=== PATIENT | male | born 1965 | race African-American/Black ===

== ENCOUNTER 2017-06-02 08:40 | Day surgery (SDC) | payer MEDICARE, SELFPAY ==
--- NOTE | 2017-06-02 | COLBX_PTH ---
PATIENT: KJ BEARD LOC: EN U#:[id number] AGE/SX: 51/M ROOM: RE06/02/[address]: Dr. Lee Tirado MD : [id number] BED: DIS: 06/02/2017 SPEC #: [id number] RECD: 06/02/17 10:43 STATUS: DENISE ARSLAN #: [id number] CASH: 06/02/17 00:[address]: Lee Tirado DEPT: SURGICAL PATHOLOGY RECD BY: Frederic Villatoro ENTERED: 06/02/17 12:53 SP TYPE: COLON BX OTHR DR: Dr. Jayant Echeverria MD Tissues: Descending colon Procedures: Surgery Specimen Level IV HEADER OPERATION: Colonoscopy PRE-OP DIAGNOSIS: Screening TISSUE SUBMITTED: Descending polyp MICROSCOPIC DIAGNOSIS Descending colon polyp, biopsy: Fragments of tubulovillous adenoma. SJ:gilda 06/05/17 MICROSCOPIC DESCRIPTION Slides are reviewed. GROSS DESCRIPTION Received in fixative is one container labeled with the patient's name and designated descending colon polyp. The specimen consists of multiple irregular fragments of light fajardo soft tissue that in aggregate measure 1.8 x 0.6 x 01 cm. The specimen is totally submitted in one cassette. / AM:gilda 06/02/17 TC:1 CPT: 44260
[2017-06-02 09:06] VITALS: BP 150/91; PULSE 77; RESP 16; TEMP 36.3; O2SAT 97; BMI 33.0
--- NOTE | 2017-06-02 10:19 | PCM.OPRPT ---
Problem List (1) Screening for intestinal cancer Status: Acute Report of Operation Date of Procedure: 06/02/17 Pre-Operative Diagnosis: Screening for intestinal malignancy Post-Operative Diagnosis: Pedunculated polyp of the descending colon. Sigmoid diverticulosis Surgery/Procedure Performed:: Colonoscopy with hot snare polypectomy Description of Surgical Findings:: Timeout and informed consent was obtained. 51-year-old gentleman was taken to the endoscopy suite. He was placed in a left lateral decubitus position. He has mental disabilities. He underwent monitored anesthesia care. Digital rectal exam performed. Normal anal tone. 2+ smooth prostate. Moderate hemorrhoidal changes. No mass lesions. Flexible colonoscope inserted the rectum advanced with tortuous sigmoid colon. This was actually very challenging due to the excessive tortuosity and colonic spasm. The patient received a milligram of glucagon scope was slowly and progressively advanced through the descending colon transverse colon and with transabdominal pressure was advanced to the ascending colon. The cecum ileocecal valve area was nicely achieved. Bowel prep was adequate. There was liquid stool located throughout the colon majority this could be aspirated free. The scope was withdrawn from the cecum ascending colon transverse colon descending colon. And what was felt to be the mid the proximal descending colon a pedunculated polyp was identified. Photographs were obtained. Hot snare was used to transect the stalk at its base. The polyp was retrieved through the suction. Polyp measured approximately a centimeter in diameter. Hemostasis was intact. The scope was further withdrawn extensive diverticulosis and spasm was noted in the sigmoid colon. I felt that I had adequate visualization. The scope was withdrawn to the rectum retroflex the anorectal verge inspected hemorrhoidal changes noted. Excess fluid and air was aspirated free the procedure was completed with the patient tolerating it well. Impression But unrelated polyp of the proximal descending colon. Extensive sigmoid and descending diverticulosis with colonic spasm. The patient has never had a previous screening colonoscopy in the next one is recommended in 5 years pending pathology results. The scope was inserted at 0957. The cecum was reached at 1005.56. The procedure was completed at 1015 Cc: Dr. Juwan Tirado M.D., F.A.C.S. Type of Anesthesia:: MAC
[2017-06-02 10:20] VITALS: BP 125/79; BP 150/91; PULSE 78; RESP 16; TEMP 36.7; O2SAT 100
[2017-06-02 10:25] VITALS: BP 119/76; BP 150/91; PULSE 78; RESP 16; O2SAT 100
[2017-06-02 10:30] VITALS: BP 127/76; BP 150/91; PULSE 75; RESP 16; O2SAT 100
[2017-06-02 10:35] VITALS: BP 140/82; BP 150/91; PULSE 82; RESP 16; TEMP 36.6; O2SAT 100
[2017-06-02 11:15] VITALS: BP 150/91
== END 2017-06-02 11:15 | disposition home or self-care (01) ==
LOC: EN 08:41 → AC 08:43
PROVIDERS: Family Provider Family Medicine; PCP Family Medicine; Visit Provider Surgery
PROC: 0DJD8ZZ Inspection of Lower Intestinal Tract, Via Natural or Artificial Opening Endoscopic (ICD-10-PCS; CPT 45378; principal; 2017-06-02 09:40)
DX: Z12.11 Encounter for screening for malignant neoplasm of colon (principal); D12.4 Benign neoplasm of descending colon; K63.5 Polyp of colon; K57.30 Diverticulosis of large intestine without perforation or abscess without bleeding; I25.10 Atherosclerotic heart disease of native coronary artery without angina pectoris; G40.909 Epilepsy, unspecified, not intractable, without status epilepticus; J44.9 Chronic obstructive pulmonary disease, unspecified; E11.9 Type 2 diabetes mellitus without complications; I10 Essential (primary) hypertension; E07.9 Disorder of thyroid, unspecified; F20.9 Schizophrenia, unspecified; F31.9 Bipolar disorder, unspecified; F41.9 Anxiety disorder, unspecified; E66.3 Overweight; Z68.32 Body mass index [BMI] 32.0-32.9, adult; Z79.82 Long term (current) use of aspirin; Z79.899 Other long term (current) drug therapy; Z87.891 Personal history of nicotine dependence; Z86.73 Personal history of transient ischemic attack (TIA), and cerebral infarction without residual deficits
CPT/HCPCS: 45385; 88305; J7120; J1610

== ENCOUNTER → 2017-06-06 09:09 | Outpatient (CLI) | payer MEDICARE, SELFPAY ==
[2017-06-06 10:19] LABS: Platelet Count 101 K/mm3 (150-450)
[2017-06-06 10:56] LABS: Valproic Acid (Depakene) Level 104 ug/mL (50-100)
== END ==
PROVIDERS: Family Provider Family Medicine; PCP Family Medicine; Visit Provider Psychiatry & Neurology Psychiatry
DX: Z79.899 Other long term (current) drug therapy (principal)
CPT/HCPCS: 36415; 80164; 85049

== ENCOUNTER → 2017-06-08 10:57 | Outpatient (CLI) | payer MEDICARE, SELFPAY ==
[2017-06-08 11:46] LABS: Platelet Count 194 K/mm3 (150-450)
[2017-06-08 12:10] LABS: AST(SGOT) 13 U/L (15-37); Alanine Aminotransfer ALT/SGPT 32 U/L (16-61)
[2017-06-08 12:11] LABS: Valproic Acid (Depakene) Level 96 ug/mL (50-100)
== END ==
PROVIDERS: Family Provider Family Medicine; PCP Family Medicine; Visit Provider Psychiatry & Neurology Psychiatry
DX: F19.10 Other psychoactive substance abuse, uncomplicated (principal); R53.83 Other fatigue; Z79.899 Other long term (current) drug therapy
CPT/HCPCS: 80164; 84450; 84460; 85049

== ENCOUNTER → 2017-06-28 11:07 | Outpatient (CLI) | payer MEDICARE, SELFPAY ==
[2017-06-28 12:46] LABS: Hemoglobin A1c 7.7 % (4.2-6.3)
[2017-06-28 13:06] LABS: Anion Gap 6 (5-15); BUN 4 mg/dL (7-18); BUN/Creat Ratio 4.6 RATIO (10-20); Calcium,Total 8.4 mg/dL (8.5-10.1); Chloride 103 mmol/L (98-107); Cholesterol 113 mg/dL (200); Creatinine, Serum 0.87 mg/dL (0.70-1.30); EST Glomerular Filtration Rate 99 mL/min (>60); Est Glom Filt Rate - Afr Amer 119 mL/min (>60); Glucose 228 mg/dL (74-106); High Density Lipoprotein 48 mg/dL; Potassium 3.9 mmol/L (3.5-5.1); Sodium Level 134 mmol/L (136-145); Thyroid Stim Hormone (TSH) 0.37 uIU/mL (0.358-3.74); Triglycerides 107 mg/dL; Very Low Density Lipoprotein 21 mg/dL (5-40)
== END ==
PROVIDERS: Family Provider Family Medicine; PCP Family Medicine; Visit Provider Family Medicine
DX: E11.9 Type 2 diabetes mellitus without complications (principal); E03.9 Hypothyroidism, unspecified
CPT/HCPCS: 36415; 80048; 80061; 83036; 84443

== ENCOUNTER → 2017-09-27 10:16 | Outpatient (CLI) | payer MEDICARE, SELFPAY ==
[2017-09-27 12:56] LABS: Anion Gap 13 (5-15); BUN 8 mg/dL (7-18); BUN/Creat Ratio 8.8 RATIO (10-20); Chloride 103 mmol/L (98-107); Cholesterol 148 mg/dL (200); Creatinine, Serum 0.91 mg/dL (0.70-1.30); EST Glomerular Filtration Rate 93 mL/min (>60); Est Glom Filt Rate - Afr Amer 113 mL/min (>60); Glucose 181 mg/dL (74-106); High Density Lipoprotein 47 mg/dL; PSA,Total - Annual Screen 0.91 ng/mL (0.00-4.00); Potassium 4.3 mmol/L (3.5-5.1); Sodium Level 138 mmol/L (136-145); Thyroid Stim Hormone (TSH) 0.73 uIU/mL (0.358-3.74); Triglycerides 194 mg/dL; Very Low Density Lipoprotein 39 mg/dL (5-40)
[2017-09-27 13:04] LABS: Hemoglobin A1c 7.6 % (4.2-6.3)
[2017-09-27 13:21] LABS: Vitamin D,25 Hydroxy 22.8 ng/mL (29.95-100.01)
== END ==
PROVIDERS: Family Provider Family Medicine; PCP Family Medicine; Visit Provider Family Medicine
DX: Z00.00 Encounter for general adult medical examination without abnormal findings (principal); E11.9 Type 2 diabetes mellitus without complications
CPT/HCPCS: 36415; 80048; 80061; 82306; 83036; 84153; 84443; G0103

== ENCOUNTER → 2017-11-10 08:27 | Outpatient (CLI) | payer MEDICARE, SELFPAY ==
[2017-11-10 09:32] LABS: Platelet Count 185 K/mm3 (150-450)
[2017-11-10 09:45] LABS: AST(SGOT) 20 U/L (15-37); Alanine Aminotransfer ALT/SGPT 26 U/L (16-61)
[2017-11-10 09:46] LABS: Valproic Acid (Depakene) Level 77 ug/mL (50-100)
== END ==
PROVIDERS: Family Provider Family Medicine; PCP Family Medicine; Referring Provider Psychiatry & Neurology Psychiatry; Visit Provider Psychiatry & Neurology Psychiatry
DX: Z79.899 Other long term (current) drug therapy (principal)
CPT/HCPCS: 36415; 80164; 84450; 84460; 85049

== ENCOUNTER → 2018-05-07 07:50 | Outpatient (CLI) | payer MEDICARE, SELFPAY ==
[2018-05-07 08:08] LABS: Platelet Count 236 K/mm3 (150-450)
[2018-05-07 08:53] LABS: Valproic Acid (Depakene) Level 85 ug/mL (50-100)
[2018-05-07 10:19] LABS: AST(SGOT) 18 U/L (15-37); Alanine Aminotransfer ALT/SGPT 23 U/L (16-61); Prolactin 32.8 ng/mL
== END ==
PROVIDERS: Family Provider Family Medicine; PCP Family Medicine; Referring Provider Psychiatry & Neurology Psychiatry; Visit Provider Psychiatry & Neurology Psychiatry
DX: Z79.899 Other long term (current) drug therapy (principal)
CPT/HCPCS: 36415; 80164; 82140; 84146; 84450; 84460; 85049

== ENCOUNTER → 2018-10-15 11:27 | Outpatient (CLI) | payer MEDICARE, SELFPAY ==
[2018-10-15 12:16] LABS: Platelet Count 187 K/mm3 (150-450)
[2018-10-15 12:34] LABS: AST(SGOT) 13 U/L (15-37); Alanine Aminotransfer ALT/SGPT 21 U/L (16-61)
[2018-10-15 12:35] LABS: Valproic Acid (Depakene) Level 92 ug/mL (50-100)
== END ==
PROVIDERS: Family Provider Family Medicine; PCP Family Medicine; Referring Provider Psychiatry & Neurology Psychiatry; Visit Provider Psychiatry & Neurology Psychiatry
DX: Z79.899 Other long term (current) drug therapy (principal)
CPT/HCPCS: 36415; 80164; 82140; 84450; 84460; 85049

== ENCOUNTER → 2019-01-01 10:58 | Outpatient (CLI) | payer MEDICARE, SELFPAY ==
--- NOTE | 2019-01-01 11:01 | RAD_ITS ---
STUDY: X-RAY CHEST REASON FOR EXAM: Male, 53 years old. COPD TECHNIQUE: Frontal and lateral views COMPARISON: None. FINDINGS: The lungs are clear and expanded. There is no demonstrated pleural abnormality. Normal size heart. Normal mediastinum and vamsi. Normal visualized pulmonary arteries. Normal visualized aortic arch and descending thoracic aorta. Degenerative changes of the visualized thoracic spine. Normal visualized ribs, clavicles, and shoulders. There is no demonstrated abnormality of the visualized soft tissue structures of the upper abdomen. RAD/Chest PA and Lateral IMPRESSION: Normal x-ray examination of the chest. Electronically Signed: Baldemar Kenney DO at 0:01 EST Tel [phone], Service support ,
== END ==
PROVIDERS: Family Provider Family Medicine; PCP Family Medicine; Referring Provider Family Medicine; Visit Provider Family Medicine
DX: J44.1 Chronic obstructive pulmonary disease with (acute) exacerbation (principal)
CPT/HCPCS: 71046

== ENCOUNTER → 2019-04-15 15:51 | Outpatient (CLI) | payer MEDICARE, SELFPAY ==
[2019-04-15 16:40] LABS: Platelet Count 240 K/mm3 (150-450)
[2019-04-15 17:03] LABS: AST(SGOT) 16 U/L (15-37); Alanine Aminotransfer ALT/SGPT 30 U/L (16-61)
[2019-04-15 17:08] LABS: Valproic Acid (Depakene) Level 80 ug/mL (50-100)
== END ==
PROVIDERS: PCP Family Medicine; Referring Provider Psychiatry & Neurology Psychiatry; Visit Provider Psychiatry & Neurology Psychiatry
DX: Z79.899 Other long term (current) drug therapy (principal)
CPT/HCPCS: 36415; 80164; 82140; 84450; 84460; 85049

== ENCOUNTER 2019-04-17 16:41 | Emergency (ER) | payer MEDICARE, MEDICAID, SELFPAY ==
[2019-04-17 16:42] VITALS: BP 136/103; PULSE 175; RESP 21; TEMP 36.8; O2SAT 99; BMI 30.5
[2019-04-17] MEDS: 0.9% Normal Saline 1,000 ML 1000 ML IV (16:45)
[2019-04-17] MEDS: Adenosine 6 MG/2 ML Syringe IV (16:51)
[2019-04-17] MEDS: Ondansetron 4 MG/2 ML Vial IV (16:52)
[2019-04-17] MEDS: Adenosine 6 MG/2 ML Syringe 12 MG IV (16:54)
--- NOTE | 2019-04-17 16:56 | CT_ITS ---
STUDY: CT ABDOMEN AND PELVIS WITH CONTRAST REASON FOR EXAM: Male, 53 years old. ABD PAIN, PALPITATIONS, HYPOTENSION RADIATION DOSAGE (If Supplied By Facility): CTDIvol = ( 19.99 ) mGy, DLP = ( 645.07 ) mGycm TECHNIQUE: Transaxial images were obtained from the dome of the diaphragm to the symphysis pubis without oral contrast. IV 100mL Isovue-300 was administered. Sagittal and coronal images were reconstructed. Individualized dose optimization techniques were used for this CT. COMPARISON: None. FINDINGS: The visualized lung bases are unremarkable. The visualized portions of the heart are within normal limits. Normal liver. Normal gallbladder and extrahepatic biliary system. Normal spleen. Normal pancreas. Normal bilateral adrenal glands. Normal right kidney. Normal left kidney. Normal visualized stomach. Normal small intestine. Normal colon. The appendix is visualized and appears normal. There are calcified plaques of the abdominal aorta. Normal inferior vena cava. Normal retroperitoneum. Normal urinary bladder. The prostate, seminal vesicles, and seminal vesicle angles appear normal. There is a fat-containing left inguinal hernia. There is mild endplate spondylosis of the visualized lower thoracic spine. CT/Abdomen/Pelvis W IV Cont ONLY IMPRESSION: 1. Calcified plaques of the abdominal aorta. 2. Fat-containing left inguinal hernia. 3. There is no evidence of free intra-abdominal or intrapelvic air, fluid, or inflammatory process. Electronically Signed: Paul Mccray MD at 18:16 EDT , Service support ,
--- NOTE | 2019-04-17 16:56 | EKG12_ITS ---
Test Reason : SCHMIDT/LISA Blood Pressure : / mmHG Vent. Rate : 173 BPM Atrial Rate : 092 BPM P-R Int : 000 ms QRS Dur : 084 ms QT Int : 280 ms P-R-T Axes : 000 069 008 degrees QTc Int : 475 ms Supraventricular tachycardia Otherwise normal ECG Confirmed by PASCUAL ZAMORA, DIANNE ([id number]), assignment desk editor PAULINA VALERO ([id number]) on 04/19/2019 12:58:51 PM Referred By: Confirmed By:ANITHA GARNER MD
--- NOTE | 2019-04-17 17:00 | EKG12_ITS ---
Test Reason : SCHMIDT/LISA Blood Pressure : / mmHG Vent. Rate : 103 BPM Atrial Rate : 103 BPM P-R Int : 132 ms QRS Dur : 082 ms QT Int : 348 ms P-R-T Axes : 066 051 020 degrees QTc Int : 455 ms Sinus tachycardia Otherwise normal ECG Confirmed by PASCUAL ZAMORA, DIANNE ([id number]), desk editor PAULINA VALERO ([id number]) on 04/19/2019 1:04:59 PM Referred By: Confirmed By:ANITHA GARNER MD
[2019-04-17 17:01] VITALS: BP 125/90; PULSE 102; RESP 20; O2SAT 98
[2019-04-17 17:10] LABS: Absolute Lymphocyte Count 2.27 X10^3/uL (0.83-4.51); Absolute Neutrophil Count 1.8 X10^3/uL (2.0-7.7); Basophil# 0.01 X10^3/uL; Basophil% 0.2 % (0-1); Eosinophil# 0.08 X10^3/uL; Eosinophils% 1.7 % (0-5); Hematocrit 45.5 % (40-54); Hemoglobin 15.8 g/dL (13.0-16.5); Lymphocyte # 2.27 X10^3/ul (4.0); Lymphocyte % 48.3 % (19-41); Mean Corp Hgb Conc 34.7 g/dL (32-36); Mean Corpuscular Volume 80.7 fL (80-94); Mean Platelet Vol. 10.9 fl (6.2-12.0); Monocyte# 0.53 X10^3/uL; Monocyte% 11.3 % (0-10); NRBC Flagged by Analyzer 0 % (0-5); Neutrophil % 38.3 % (47-70); Platelet Count 311 K/mm3 (150-450); RBC Distribution Width CV 13.2 % (11.6-14.6); RBC Distribution Width SD 37.9 fl (35.1-43.9); Red Blood Count 5.64 M/mm3 (4.6-6.2); White Blood Count 4.7 K/mm3 (4.4-11.0)
[2019-04-17 17:24] LABS: ALB/GLOB Ratio 0.9 RATIO (0.9-2.4); AST(SGOT) 19 U/L (15-37); Alanine Aminotransfer ALT/SGPT 43 U/L (16-61); Albumin, Serum 3.5 g/dL (3.2-5.0); Alkaline Phosphatase 62 U/L (45-117); Anion Gap 4 (5-15); BUN 8 mg/dL (7-18); Calcium,Total 8.9 mg/dL (8.5-10.1); Chloride 110 mmol/L (98-107); EST Glomerular Filtration Rate 83 mL/min (>60); Est Glom Filt Rate - Afr Amer 100 mL/min (>60); Estimated Creatinine Clearance 65.98 ml/min; Glucose 133 mg/dL (74-106); Lipase 159 U/L (73-393); Potassium 4.9 mmol/L (3.5-5.1); Protein, Total 7.5 g/dL (6.4-8.2); Sodium Level 141 mmol/L (136-145)
[2019-04-17 18:22] LABS: Bacteria 0 SEEN /hpf (None Seen); Mucous, Urine 0 SEEN /hpf (<or=2+); Red Blood Cells-Urine 0 SEEN /hpf (0-5); White Blood Cells 0 SEEN /hpf (0-5)
[2019-04-17 18:26] LABS: Color, Urine Yellow (Yellow); Glucose, Dipstick Normal (Normal); Ketone-Dipstick Negative (Negative); Leukocyte Esterase-Dipstick Negative /ul (Negative); Nitrite-Dipstick Negative (Negative); Occult Blood-Urine Negative /ul (Negative); Protein-Dipstick Negative (Negative); Specific Gravity, Urine 1.005 (1.002-1.030); Urine Bilirubin Dipstick Negative (Negative); Urine Clarity Clear (Clear); Urine Urobilinogen Normal (Normal)
[2019-04-17 18:39] LABS: Squamous Epithelial Cells - UA 0-5 SEEN /hpf (0-5)
--- NOTE | 2019-04-17 19:18 | ED.VISSUMM ---
- ER Visit Summary Date of Service: 04/17/19 Chief Complaint: Palpitations History of Present Illness: The patient is a [address] Jayant Abraham. He has a history of schizophrenia and is a very poor informant. He reports he has palpitations that began today. He is unable to state when this started. He denies any chest pain. Reports he does feel short of breath. He reports he is had a cough productive yellow sputum without blood. He denies any fever or chills. On review of system patient complains of diffuse abdominal pain. He is unable to quantify this. He said nausea without any vomiting. Physical Examination: Vitals: 98.2, 136/103, 175, 21, 99% on room air which is not hypoxic. General: Well-nourished and well-developed. Head: Normocephalic atraumatic. Neck: Supple, no lymphadenopathy. No JVD. Nontender. Cardiovascular: Tachycardic regular rhythm. No murmurs. Respiratory: No respiratory distress. Clear to auscultation bilaterally. Abdominal: Soft, mild diffuse tenderness to palpation, nondistended, normal bowel sounds. No guarding, rebound, or peritoneal signs. Back: Nontender. Extremities: Nontender, no edema. Skin: Normal color, no rash. Neurologic: Alert and oriented ?3. Cranial nerves II through XII are intact. Normal strength and sensation. Psych: Normal affect. Test Results: EKG is SVT at [address] changes. Repeat EKG is sinus tach at 103 with no ischemic changes. Troponin is negative. UA is normal. LFTs are normal. Lipase is normal. Chem-7 shows a chloride of 110 and glucose 133. CBC shows segmented neutrophils of 38, lymphocytes 48, monocytes of 11. Clinical Impression(s) from Imaging Studies Abdomen/Pelvis CT 04/17/19 16:56 IMPRESSION: 1. Calcified plaques of the abdominal aorta. 2. Fat-containing left inguinal hernia. 3. There is no evidence of free intra-abdominal or intrapelvic air, fluid, or inflammatory process. Electronically Signed: Paul Mccray MD at 18:16 EDT , Service support , Emergency Department Course and Treatment: Patient had an IV placed. He was given adenosine IV. He did not convert with 6 mg. He was given 12 mg and converted to sinus rhythm. He was given Zofran IV for his nausea. He refused pain medications. He feels much improved after his chemical cardioversion. Treatment Plan: Patient will be discharged with instructions to follow-up with Dr. Abraham in 3 to 5 days if not improving. He is given the phone number for Dr. Frank to follow-up with as well for his SVT. Return to the emergency department for any worsening symptoms. Disposition: To home in improved and stable condition. Impression: 1. SVT. 2. Abdominal pain, resolved. 3. Critical care time 33 minutes. This note was generated with [employer] dictation software. It may contain incorrect words, spelling, and punctuation that were not noted in review of the chart prior to signing ED Disposition - Plan for ED Patient: Disposition: Home or Assisted Living Instructions: [facility] (P.A.T.) Referrals: Jayant Echeverria MD [Primary Care Provider] - 1 Week Mac Frank MD [STAFF PHYSICIAN] - 1-2 Weeks
--- NOTE | 2019-04-17 19:51 | ED.RN ---
PT WANTED ME TO CALL HIS AUNT FOR A RIDE HOME. SHE WAS CALLED AND WILL COME AND PICK HIM UP.
[2019-04-17 19:54] VITALS: BP 121/90; PULSE 94; RESP 15; O2SAT 98
--- NOTE | 2019-04-17 20:05 | ED.RN ---
UNCLE TO BEDSIDE TO PICK PT UP. DISCHARGE INSTRUCTIONS GIVEN TO HIM AND PT. ALL QUESTIONS ANSWERED, NO FURTHER CONCERNS.
== END 2019-04-17 20:06 | disposition home or self-care (01) ==
LOC: ED 18:17
PROVIDERS: Emergency Provider Emergency Medicine; PCP Family Medicine
DX: I47.1 Supraventricular tachycardia (principal); R10.9 Unspecified abdominal pain; F20.9 Schizophrenia, unspecified
CPT/HCPCS: 74177; 80053; 81001; 83690; 84484; 85025; 93005; 96361; 96374; 99285; Q9967; J0153; J2405

== ENCOUNTER 2019-08-13 21:28 | Observation (INO) | payer MEDICARE, MEDICAID, SELFPAY ==
[2019-08-13] VITALS (7 sets, daily range): BP systolic 125–172; BP diastolic 86–96; PULSE 72–101; RESP 16–19; TEMP 36.8–37.1; O2SAT 95–100; BMI 31.6; BMI 31.4
--- NOTE | 2019-08-13 21:35 | ED.RN ---
CALLED FOR EKG PER RN REQUEST, PULLED OLD EKGS FOR
--- NOTE | 2019-08-13 21:41 | EKG12_ITS ---
Test Reason : CP Blood Pressure : / mmHG Vent. Rate : 080 BPM Atrial Rate : 080 BPM P-R Int : 146 ms QRS Dur : 090 ms QT Int : 370 ms P-R-T Axes : 057 033 034 degrees QTc Int : 426 ms Normal sinus rhythm Normal ECG Confirmed by MIKE ZAMORA, GIORGIO ([id number]), senior technical editor PAULINA VALERO ([id number]) on 08/15/2019 1:25:13 PM Referred By: Joan Allen Confirmed By:GIORGIO MCKEON MD
[2019-08-13] MEDS: Aspirin 81 MG TAB.CHEW 324 MG PO (21:46)
[2019-08-13 21:50] LABS: Absolute Lymphocyte Count 2.61 X10^3/uL (0.83-4.51); Absolute Neutrophil Count 1.9 X10^3/uL (2.0-7.7); Basophil# 0.02 X10^3/uL; Basophil% 0.4 % (0-1); Eosinophil# 0.13 X10^3/uL; Eosinophils% 2.5 % (0-5); Hematocrit 37.7 % (40-54); Hemoglobin 13.6 g/dL (13.0-16.5); Lymphocyte # 2.61 X10^3/ul (4.0); Lymphocyte % 49.8 % (19-41); Mean Corp Hgb Conc 36.1 g/dL (32-36); Mean Corpuscular Hgb 28.9 pg (27.0-32.0); Mean Platelet Vol. 10.5 fl (6.2-12.0); Monocyte# 0.62 X10^3/uL; Monocyte% 11.8 % (0-10); NRBC Flagged by Analyzer 0 % (0-5); Neutrophil # 1.85 X10^3/uL (2.7-7.7); Neutrophil % 35.3 % (47-70); Platelet Count 196 K/mm3 (150-450); RBC Distribution Width CV 13.4 % (11.6-14.6); RBC Distribution Width SD 38.3 fl (35.1-43.9); Red Blood Count 4.71 M/mm3 (4.6-6.2); White Blood Count 5.2 K/mm3 (4.4-11.0)
--- NOTE | 2019-08-13 21:55 | RAD_ITS ---
STUDY: X-RAY CHEST REASON FOR EXAM: Male, 53 years old. Chest pain. TECHNIQUE: AP portable upright COMPARISON: 01/01/2019 CXR FINDINGS: No apparent pneumothorax, pneumonia, pleural effusion, or edema. Linear mild scarring right midlung unchanged. Cardiac silhouette, vamsi and mediastinal contours are within normal limits. No acute osseous abnormality. No evidence of free air under the diaphragm. RAD/Chest 1 View (Portable) IMPRESSION: Negative chest radiograph. Electronically Signed: Paul Jackson, at 22:32 EDT Tel , Service support ,
--- NOTE | 2019-08-13 22:05 | ED.VISSUMM ---
- ER Visit Summary Date of Service: 08/13/19 Chief Complaint: Sternal chest pain History of Present Illness: The patient is a [address] prior stroke, hypertension, high cholesterol and seizures. Never had any cardiac history. Denies any prior cardiac cath. No history of DVT or PE. States he was sitting at home tonight watching TV around 9 PM. Had sudden onset midsternal chest pain. No radiation. States he felt like someone punched him in the chest. No dyspnea. No hemoptysis. It was not pleuritic. States he is never had pain like this before. States he does not walk very much. He does not have steps in his house. He denies any recent exertional symptoms. He denies ever having a cardiac catheterization. He denies family history of cardiac disease. He denies any back pain. There is no radiation of the pain. It has completely resolved. Physical Examination: Middle-aged male no acute distress vital signs stable afebrile. Pulse ox 90% on room air no signs of hypoxia. H EENT exam unremarkable. Neck nontender. Lungs clear to auscultation bilaterally. Heart regular rhythm no murmur. Rate about 80. Chest wall nontender. Abdomen soft nontender normal bowel sounds no peritoneal signs. Extremities moves all 4. Calves nontender no edema no cords. Equal symmetrical radial pulse. Neurologically is awake and alert. Answering questions and following commands. Test Results: EKG shows normal sinus rhythm rate [address] with no signs of CT or ischemia. No acute abnormality. Read by myself. CBC unremarkable white count of 5 hemoglobin 13. Electrolytes unremarkable except for sodium 131. Normal gap and creatinine. Troponin normal. Ben exam patient is doing well at 10:27 PM. He is pain-free. He and I discussed his history, physical and exam and test results. He is comfortable being admitted overnight for further cardiac evaluation. Emergency Department Course and Treatment: Middle-aged male with chest pain and since resolved is not reproducible. Undergo cardiac work-up. Receive aspirin if he has not already. Currently is pain-free. Treatment Plan: I spoke to the overnight hospitalist the patient will be assigned to either observation of the PCU for further cardiac work-up. Disposition: Observation admission Impression: Acute chest pain of uncertain etiology History of prior stroke History of hypertension high cholesterol History of seizure disorder This note was generated with [employer] software. It may contain incorrect words, spelling, and punctuation that were not noted in review of the chart prior to signing ED Disposition - Plan for ED Patient: Referrals: Jayant Echeverria MD [Primary Care Provider] -
[2019-08-13 22:12] LABS: Anion Gap 6 (5-15); BUN 10 mg/dL (7-18); BUN/Creat Ratio 11.7 RATIO (10-20); Calcium,Total 8.7 mg/dL (8.5-10.1); Chloride 98 mmol/L (98-107); Creatinine, Serum 0.86 mg/dL (0.70-1.30); EST Glomerular Filtration Rate 99 mL/min (>60); Est Glom Filt Rate - Afr Amer 120 mL/min (>60); Estimated Creatinine Clearance 76.72 ml/min; Glucose 109 mg/dL (74-106); Potassium 4.3 mmol/L (3.5-5.1); Sodium Level 131 mmol/L (136-145)
--- NOTE | 2019-08-13 22:35 | HP.PCM_ITS ---
Problem List (1) Chest pain Status: Acute Qualifiers: Chest pain type: unspecified Qualified Code(s): R07.9 - Chest pain, unspecified (2) Hyperlipidemia Status: Chronic Qualifiers: Hyperlipidemia type: unspecified Qualified Code(s): E78.5 - Hyperlipidemia, unspecified (3) SVT (supraventricular tachycardia) Status: Chronic (4) Essential hypertension Status: Chronic (5) Atherosclerosis of coronary artery of [place] heart without angina pectoris Status: Chronic Qualifiers: Coronary Disease-Associated Artery/Lesion type: unspecified vessel or lesion type Qualified Code(s): I25.10 - Atherosclerotic heart disease of [place] coronary artery without angina pectoris History of Present Illness Date of Admission: 08/13/19 Chief Complaint: Chest pain The patient is a 53 year old M with past medical history of schizophrenia, cerebral palsy, anxiety/depression, history of stroke, CAD, hypertension, type II DM who resides in a fpc comes in with complaints of chest pain that started this afternoon. Patient states that he was eating and watching TV, when he started having midsternal/substernal sharp chest pain that did not radiate. He denied any nausea or diaphoresis, or dizziness or palpitations. Chest pain had almost resolved at the time of coming to the ED. Denied any active cardiac work-up in the past. Vitals in the ED showed temperature of 98.4F, heart rate 78, blood pressure 172/96, respiratory 16, SPO2 is 100% on room air. His admitting blood work showed WBC count of 5.2, hemoglobin 13.6, platelet count 196, BMP was unremarkable. Chest x-ray showed no acute abnormality. Past Medical History Past Medical History (Chronic Problems): Chronic Problems (Last Updated 05/28/19 @ 10:06 by Angela Nolt) Hyperlipidemia (Chronic) SVT (supraventricular tachycardia) (Chronic) Essential hypertension (Chronic) Atherosclerosis of coronary artery of [place] heart without angina pectoris (Chronic) Medical History: Medical History (Last Updated 05/28/19 @ 10:06 by Angela Nolt) Hyperlipidemia (Chronic) E78.5 SVT (supraventricular tachycardia) (Chronic) I47.1 Essential hypertension (Chronic) I10 Atherosclerosis of coronary artery of [place] heart without angina pectoris (Chronic) I25.10 Screening for intestinal cancer (Acute) Z12.10 Constipation K59.00 Anxiety F41.9 COPD (chronic obstructive pulmonary disease) J44.9 Cerebral palsy G80.9 Depressed F32.9 Hypothyroidism E03.9 Schizophrenia F20.9 Type 2 diabetes mellitus without complication E11.9 History of stroke Onset Date: ~2003 Z86.73 Allergies Penicillins Allergy (Mild, Verified 08/13/19 21:38) Unknown pollen extracts Adverse Reaction (Mild, Verified 08/13/19 21:38) Unknown bee stings Adverse Reaction (Mild, Uncoded 08/13/19 21:38) Unknown Home Medications: Ambulatory Orders Medication Instructions Recorded Aspirin [Aspirin, Baby] 81 mg PO DAILY@0800 05/05/13 Fluticasone 0.05% [Flonase Nasal 2 spray NASAL DAILY 05/05/13 [facility]ker] Levothyroxine [Synthroid] 112 mcg PO DAILY 05/05/13 Lisinopril [Zestril] 5 mg PO DAILY 05/05/13 Polyethylene Glycol 3350 [Miralax] 17 gm PO DAILY 05/05/13 Propranolol HCl [Inderal (Beta 20 mg PO BID 05/05/13 Melina)] Quetiapine Fumarate [Seroquel XR] 300 mg PO QHS 05/05/13 Rosuvastatin Calcium [Crestor] 10 mg PO QHS 05/05/13 Sertraline HCl [Zoloft] 100 mg PO DAILY 05/05/13 fluticasone propionate 220 1 puff INHALATION BID 05/02/17 mcg/actuation HFA aerosol inhaler Cholecalciferol (VIT D3) [Vitamin 3,000 unit PO DAILY 04/17/19 D] Fluphenazine Decanoate 25 mg IJ UD 04/17/19 Hydrocortisone 1 applic TP BID 04/17/19 albuterol sulfate 90 mcg/actuation 2 puff INHALATION Q6H PRN 05/01/19 aerosol inhaler divalproex 500 mg tablet,extended 500 mg PO QHS tab 05/01/19 release 24 hr epinephrine 0.3 mg/0.3 mL 0.3 mg IM ONCE PRN 05/01/19 injection, auto-injector loratadine 10 mg tablet 10 mg PO DAILY 05/01/19 metformin 1,000 mg tablet 500 mg PO DAILY 05/01/19 phenytoin sodium extended 100 mg 100 mg PO TID 05/01/19 capsule Benztropine Mesylate 1 mg PO DAILY 08/13/19 Surgical History: no surgical history Psychiatric History: Anxiety, Depression, Schizophrenia Lives: - - jail Smoking Status: Former smoker Tobacco Use: Non-smoker Alcohol: None Drugs: None - *Family History Maternal Family History: Family History (Last Updated 05/02/17 @ 14:22 by Kezia Talavera) Grandmother Hypertension Diabetes Brother Seizures Mother Hypertension Father Hypertension History Items: Hypertension Paternal Family History: Family History (Last Updated 05/02/17 @ 14:22 by Kezia Talavera) Grandmother Hypertension Diabetes Brother Seizures Mother Hypertension Father Hypertension History Items: Hypertension Sibling Family History: Family History (Last Updated 05/02/17 @ 14:22 by Kezia Talavera) Grandmother Hypertension Diabetes Brother Seizures Mother Hypertension Father Hypertension History Items: Seizures Review of Systems Constitutional: Denies: Anorexia, Chills, Fever, Malaise, Weakness, Weight Change Eyes: Denies: Blurred vision, Cataracts, Conjunctivae Inflammation, Pain, Redness, Vision Change HEENT: Denies: Difficulty Hearing, Difficulty Swallowing, Head Aches, Hearing Changes, Sinus Congestion, Sinus Drainage Cardiovascular: Reports: Chest Pain, Chest Pressure, Chest Tightness. Denies: Claudication, Edema, Light Headedness, Orthopnea, Palpitations, Paroxysmal Noc. Dyspnea, Syncope Respiratory: Denies: Cough, Hemoptysis, Shortness of breath at rest, Shortness of breath upon exertion, Sputum production Gastrointestinal: Denies: Abdominal Pain, Nausea, Vomiting Genitourinary: Denies: Dysuria, Frequency, Incontinence Musculoskeletal: Denies: Joint Pain, Joint stiffness, Joint swelling, Joint Tenderness Skin: Denies: Rash, Wounds Neurological: Denies: Numbness, Tingling, Focal weakness Psychiatric: Denies: Anxiety, Depression, Homicidal Ideations, Suicidal Ideations Hematologic/ Lymphatic: Denies: Easy Bruising, Easy Bleeding VTE Information - Inpt Only VTE Present on Admission: No VTE Pharm Prophylaxis ordered?: Yes Patient Problems: Active and Suspected Problems (Last Updated 05/28/19 @ 10:06 by Angela Malcolm) Chest pain (Acute) - Physical Exam Vitals/I&O's: Vital Signs Temp Pulse Resp BP Pulse Ox 98.4 F 81 16 172/96 H 98 08/13/19 21:29 08/13/19 21:29 08/13/19 21:29 08/13/19 21:29 08/13/19 21:43 Oxygen Delivery Method Room Air Weight: 78.4 kg Body Mass Index (BMI) 31.6 General: Alert, Oriented x3, Cooperative, No apparent distress HEENT: Atraumatic, PERRLA, EOMI, Normocephalic Oral: Moist Mucosa Neck: Supple Lungs: Clear to auscultation, Normal air movement Cardiovascular: Regular rate, Regular Rhythm, Normal S1, Normal S2, No murmurs Abdomen: Bowel Sounds Present, Soft, Non Tender, Non-Distended, No Hepato- splenomegaly Extremities: No edema Skin: No rashes Musculoskeletal: No Tenderness to Palpation of Joints or Extremities Lymphatic: No Cervical, Supraclavicular, or Inguinal Adenopathy Neurological: Cranial nerves II-XII grossly intact, Neuro grossly intact Psych/Mental Status: Normal Affect, Appropriate Laboratory Results 08/13/19 21:38: WBC 5.2, RBC 4.71, Hgb 13.6, Hct 37.7 L, MCV 80.0, MCH 28.9, MCHC 36.1 H, RDW Std Deviation 38.3, RDW Coeff of Aleksandr 13.4, Plt Count 196, MPV 10.5, Immature Gran % (Auto) 0.200, Neut % (Auto) 35.3 L, Lymph % (Auto) 49.8 H, [place] % (Auto) 11.8 H, Eos % (Auto) 2.5, Baso % (Auto) 0.4, Absolute Neuts (auto) 1.9 L, Absolute Lymphs (auto) 2.61, Nucleated RBC % 0 08/13/19 21:38: Sodium 131 L, Potassium 4.3, Chloride 98, Carbon Dioxide 27.0, Anion Gap 6, BUN 10, Creatinine 0.86, Estim Creat Clear Calc 76.72, Est GFR (MDRD) Af Amer 120, Est GFR (MDRD) Non-Af 99, BUN/Creatinine Ratio 11.7, Glucose 109 H, Calcium 8.7, Troponin I < 0.015 Assessment/Plan All Active Problems (Last Updated 05/28/19 @ 10:06 by Angela Malcolm) Chest pain (Acute) Screening for intestinal cancer (Acute) 53 year old M with past medical history of schizophrenia, multiple cardiovascular risk factors resident in a senior living who comes in with chest pain. 1. Chest pain, atypical the patient multiple risk factors including history of stroke Admitting EKG shows normal sinus rhythm, no acute ST-T changes. Troponins x1 is negative. Will need to rule out ACS Admit to PCU, continue to monitor on telemetry, trend troponins Continue aspirin 81 mg p.o. daily, statins, nitro as needed, Nuclear stress test in a.m. Check lipid profile in am 2. Hypertension, initially elevated in the ED, trending downwards Continue on home lisinopril 3. Type II DM, on metformin, Continue with blood glucose checks and insulin sliding scale 4. Hypothyroidism, continue on home levothyroxine 5. Hyperlipidemia, continue home rosuvastatin Check lipid profile in a.m. 6. Schizophrenia/cerebral palsy/anxiety/depression, continue on home antidepressant/mood stabilizers 7. DVT prophylaxis with Lovenox subcu OBSV E&M: 31605 Initial observation care L3
--- NOTE | 2019-08-13 23:30 | NURSING ---
Assumed care of pt at this time.
[2019-08-14] VITALS (7 sets, daily range): BP systolic 122–142; BP diastolic 73–91; PULSE 77–95; RESP 16–18; TEMP 36.4–36.8; O2SAT 96–99
[2019-08-14] MEDS: Divalproex (ER) 500 MG Tablet PO (01:22)
[2019-08-14 03:02] LABS: AST(SGOT) 11 U/L (15-37); Alanine Aminotransfer ALT/SGPT 23 U/L (16-61); Albumin, Serum 3.2 g/dL (3.2-5.0); Alkaline Phosphatase 55 U/L (45-117); Bilirubin, Direct 0.12 mg/dL (0.00-0.30); Globulin 3.2 g/dL (2.2-4.2); Protein, Total 6.4 g/dL (6.4-8.2); Thyroid Stim Hormone (TSH) 0.18 uIU/mL (0.358-3.74)
[2019-08-14 05:44] LABS: Absolute Lymphocyte Count 2.69 X10^3/uL (0.83-4.51); Absolute Neutrophil Count 1.4 X10^3/uL (2.0-7.7); Basophil# 0.01 X10^3/uL; Basophil% 0.2 % (0-1); Eosinophil# 0.16 X10^3/uL; Eosinophils% 3.3 % (0-5); Hematocrit 38.1 % (40-54); Hemoglobin 13.4 g/dL (13.0-16.5); Lymphocyte # 2.69 X10^3/ul (4.0); Lymphocyte % 55.3 % (19-41); Mean Corp Hgb Conc 35.2 g/dL (32-36); Mean Corpuscular Hgb 28.3 pg (27.0-32.0); Mean Corpuscular Volume 80.5 fL (80-94); Mean Platelet Vol. 10.8 fl (6.2-12.0); Monocyte# 0.55 X10^3/uL; Monocyte% 11.3 % (0-10); NRBC Flagged by Analyzer 0 % (0-5); Neutrophil # 1.44 X10^3/uL (2.7-7.7); Neutrophil % 29.7 % (47-70); Platelet Count 185 K/mm3 (150-450); RBC Distribution Width CV 13.3 % (11.6-14.6); Red Blood Count 4.73 M/mm3 (4.6-6.2); White Blood Count 4.9 K/mm3 (4.4-11.0)
--- NOTE | 2019-08-14 05:55 | EKG12_ITS ---
Test Reason : CP ADMIT Blood Pressure : / mmHG Vent. Rate : 075 BPM Atrial Rate : 075 BPM P-R Int : 160 ms QRS Dur : 090 ms QT Int : 380 ms P-R-T Axes : 052 041 013 degrees QTc Int : 424 ms Normal sinus rhythm Nonspecific T wave abnormality Abnormal ECG When compared with ECG of 13-AUG-2019 21:29, MANUAL COMPARISON REQUIRED, DATA IS UNCONFIRMED Confirmed by MIKE ZAMORA, GIORGIO ([id number]), non linear editor SUZAN GASTON ([id number]) on 08/19/2019 1:28:05 PM Referred By: Joan Allen Confirmed By:GIORGIO MCKEON MD
[2019-08-14 06:23] LABS: AST(SGOT) 10 U/L (15-37); Alanine Aminotransfer ALT/SGPT 24 U/L (16-61); Albumin, Serum 3.3 g/dL (3.2-5.0); Alkaline Phosphatase 54 U/L (45-117); Anion Gap 7 (5-15); BUN 11 mg/dL (7-18); BUN/Creat Ratio 14.7 RATIO (10-20); Calcium,Total 8.4 mg/dL (8.5-10.1); Chloride 98 mmol/L (98-107); Cholesterol 117 mg/dL (200); Creatinine, Serum 0.75 mg/dL (0.70-1.30); EST Glomerular Filtration Rate 116 mL/min (>60); Est Glom Filt Rate - Afr Amer 140 mL/min (>60); Estimated Creatinine Clearance 87.97 ml/min; Globulin 3.2 g/dL (2.2-4.2); Glucose 134 mg/dL (74-106); High Density Lipoprotein 46 mg/dL; Protein, Total 6.5 g/dL (6.4-8.2); Sodium Level 133 mmol/L (136-145); Triglycerides 80 mg/dL; Very Low Density Lipoprotein 16 mg/dL (5-40)
[2019-08-14] MEDS: Lisinopril 5 MG Tablet PO (06:25)
[2019-08-14] MEDS: Levothyroxine 112 MCG Tablet PO (06:26)
[2019-08-14] MEDS: Phenytoin Na 100 MG Capsule PO ×2 (06:26→13:29)
[2019-08-14] MEDS: Aspirin 81 MG TAB.CHEW PO (06:27)
[2019-08-14 07:06] LABS: Bedside Glucose 146 mg/dL (70-110)
--- NOTE | 2019-08-14 07:58 | NURSING ---
Pt to stress via [employer]
--- NOTE | 2019-08-14 09:48 | RAD_ITS ---
STUDY: X-RAY CHEST REASON FOR EXAM: Male, 53 years old. CHEST PAINS TECHNIQUE: PA and lateral views of the chest. COMPARISON: Comparison is made with prior study dated August 13, 2019. FINDINGS: Stable linear increased markings in the right upper lobe suggestive of linear scarring. No focal consolidation is seen. There is no demonstrated pleural abnormality. Normal size heart. Normal mediastinum and vamsi. Normal visualized pulmonary arteries. There is atherosclerotic tortuosity of the aortic arch and descending thoracic aorta. There are diffuse degenerative changes of the visualized thoracic spine. Normal visualized ribs, clavicles, and shoulders. There is no demonstrated abnormality of the visualized soft tissue structures of the upper abdomen. RAD/Chest PA and Lateral IMPRESSION: Increased linear markings in the right upper lobe suggestive of mild scarring. There has been no change. Electronically Signed: Kimo Chu, at 13:01 EDT , Service support ,
[2019-08-14] MEDS: Polyethylene Glycol 3350 17 GM PACKET PO (10:48)
[2019-08-14] MEDS: Loratadine 10 MG Tablet PO (10:48)
[2019-08-14] MEDS: Fluticasone 0.05% 1 SPRAY NASAL.SRY 2 SPRAY NASAL (10:48)
[2019-08-14] MEDS: metFORMIN HCl 500 MG Tablet PO (10:48)
[2019-08-14] MEDS: Sertraline 100 MG Tablet PO (10:48)
[2019-08-14] MEDS: Propranolol 10 MG Tablet 20 MG PO (10:48)
[2019-08-14] MEDS: QUEtiapine 100 MG Tablet 150 MG PO (10:49)
[2019-08-14] MEDS: Benztropine 2 MG Tablet 1 MG PO (10:49)
--- NOTE | 2019-08-14 12:21 | STRESSREP ---
Stress Test Report Pharmacologic myocardial perfusion stress test. 53-year-old lady with a history of chest pain. Stress protocol: Resting EKG demonstrates normal sinus rhythm with a rate of 79 bpm normal intervals are noted resting blood pressure is 118/82 mmHg. 0.4 mg of regadenoson was infused per usual protocol followed by Intravenous saline flush injection continuous EKG monitoring was performed. The maximum heart rate attained was 100 bpm which was 59% of max impacted heart rate. The maximum workload was 1 metabolic equivalent. At rest there were no ST or T wave changes noted to suggest abnormal flow reserve. The peak blood pressure was 118/70 mmHg. Myocardial perfusion protocol. 12.0 mCi of technetium 99m sestamibi was injected at rest. 0.4 mg of regadenoson was infused per usual protocol. At peak infusion 33.0 mCi of technetium 99m sestamibi was injected. Stress images were obtained stress and rest images were reconstructed and compared in the short axis vertical long horizontal long axis. Gated images were also obtained per Perfusion SPECT analysis: Review of the stress images demonstrate normal uptake of tracer noted in all areas of the myocardium. The resting images similarly demonstrate normal uptake of tracer noted in all areas of the myocardium. No areas of reversibility are noted to suggest ischemia no previous infarct is noted. Gated SPECT analysis: The gated ejection fraction is 68%. Conclusion: Normal pharmacologic myocardial perfusion stress test.
--- NOTE | 2019-08-14 14:09 | DCINST_ITS ---
- Discharge Diagnoses Current Active Problems: Current Active and Chronic Problems (Last Updated 05/28/19 @ 10:06 by Angela Malcolm) Chest pain (Acute) You will use the following diet at home:: Cardiac Your food should be the consistency of: Regular Discharge Activity: Return to Normal Activity Weight Bearing Status: Weight bearing as tolerated Call your doctor if you observe: Fever of 101 or Higher, Shortness of breath, Dizziness, Fainting spells, Chest pain, Increased palpitations (irregular heartbeat), Uncontrolled pain Allergies/Adverse Reactions: Allergies Penicillins Allergy (Mild, Verified 08/13/19 21:38) Unknown pollen extracts Adverse Reaction (Mild, Verified 08/13/19 21:38) Unknown bee stings Adverse Reaction (Mild, Uncoded 08/13/19 21:38) Unknown Medications to take at Discharge Aspirin [Aspirin, Baby] 81 mg PO DAILY@0800 05/05/13 Fluticasone 0.05% [Flonase Nasal [place]] 2 spray NASAL DAILY 05/05/13 Levothyroxine [Synthroid] 112 mcg PO DAILY 05/05/13 Lisinopril [Zestril] 5 mg PO DAILY 05/05/13 Polyethylene Glycol 3350 [Miralax] 17 gm PO DAILY 05/05/13 Propranolol HCl [Inderal (Beta Melina)] 20 mg PO BID 05/05/13 Quetiapine Fumarate [Seroquel XR] 300 mg PO QHS 05/05/13 Rosuvastatin Calcium [Crestor] 10 mg PO QHS 05/05/13 Sertraline HCl [Zoloft] 100 mg PO DAILY 05/05/13 fluticasone propionate 220 mcg/actuation HFA aerosol inhaler 1 puff INHALATION BID 05/02/17 Cholecalciferol (VIT D3) [Vitamin D3] 3,000 unit PO DAILY 04/17/19 Fluphenazine Decanoate 25 mg IJ UD 04/17/19 Hydrocortisone 1 applic TP BID 04/17/19 albuterol sulfate 90 mcg/actuation aerosol inhaler 2 puff INHALATION Q6H PRN 05/01/19 divalproex 500 mg tablet,extended release 24 hr 500 mg PO QHS tab 05/01/19 epinephrine 0.3 mg/0.3 mL injection, auto-injector 0.3 mg IM ONCE PRN 05/01/19 loratadine 10 mg tablet 10 mg PO DAILY 05/01/19 metformin 1,000 mg tablet 500 mg PO DAILY 05/01/19 phenytoin sodium extended 100 mg capsule 100 mg PO TID 05/01/19 Benztropine Mesylate 1 mg PO BREAKFAST 08/13/19 Primary Care Physician: Jayant Echeverria MD [Primary Care Provider] - Please follow up with your Primary Care Physician in: 1-2 weeks. Test Results: Test results from this visit will be discussed in further detail at your follow- up appointment, if applicable.
--- NOTE | 2019-08-14 14:31 | PCM.DC.SUM ---
Discharge Date and Diagnosis - Problem List Patient Problems: Active and Suspected Problems (Last Updated 05/28/19 @ 10:06 by Angela Nolt) Chest pain (Acute) Date of Admission: 08/13/19 Date of Discharge: 08/14/19 - Primary Discharge Diagnosis Acute Problems: Active Problems (Last Updated 05/28/19 @ 10:06 by Angela Nolt) Atypical chest pain, ACS ruled out. - Secondary Discharge Diagnosis Chronic Problems: Chronic Problems (Last Updated 05/28/19 @ 10:06 by Angela Nolt) Hyperlipidemia (Chronic) SVT (supraventricular tachycardia) (Chronic) Essential hypertension (Chronic) Atherosclerosis of coronary artery of [place] heart without angina pectoris (Chronic) Hospital Course and Treatment Imaging Results: 08/14/19 05:55 Nuclear Stress Test - Chemical [NM] AM (NON MEDS) 08/14/19 09:48 Chest PA and Lateral [RAD] AM (NON MEDS) Clinical Impression(s) from Imaging Studies Chest X-Ray 08/13/19 21:55 IMPRESSION: Negative chest radiograph. Electronically Signed: Paul Jackson, at 22:32 EDT Tel , Service support , Chest X-Ray 08/14/19 09:48 IMPRESSION: Increased linear markings in the right upper lobe suggestive of mild scarring. There has been no change. Electronically Signed: Kimo Chu, at 13:01 EDT , Service support , Operations: None Procedures: EKG, Stress test Summary of Care Provided: Patient seen and examined on the day of discharge and appeared to be stable for discharge home. He denied any more chest pain. His vitals are stable. The patient is a 53 year old M admitted for chest pain for evaluation. Initial EKG revealed no acute acute changes. Troponin was negative x3. Chest x-ray showed no acute findings. His routine blood work was unremarkable. His LFT was normal. TSH was very low at 0.18. Patient has been on levothyroxine for hypothyroidism. He underwent nuclear stress test that showed no evidence of stress-induced myocardial ischemia and his ejection fraction was 68%. After admission, patient had no more chest pain. ACS ruled out. His vital signs remained stable. Because of very low TSH, dose of levothyroxine decreased down to 88 mcg daily. Patient discharged home in a stable condition, prescription sent for levothyroxine 88 mcg daily given very low TSH, recommended follow-up with PCP in 1 to 2 weeks. Patient Problems: Active and Suspected Problems (Last Updated 05/28/19 @ 10:06 by Angela Malcolm) Chest pain (Acute) - Physical Exam Vitals/I&O's: Vital Signs Temp Pulse Resp BP Pulse Ox 98.1 F 85 16 122/73 H 99 08/14/19 10:37 08/14/19 11:42 08/14/19 10:37 08/14/19 10:37 08/14/19 10:37 Oxygen Delivery Method Room Air Weight: 171 lb 8.314 oz Body Mass Index (BMI) 31.4 General: Alert, Oriented x3, Cooperative, No apparent distress HEENT: Atraumatic, PERRLA, EOMI, Normocephalic Oral: Moist Mucosa, No Gingival or Mucosal Lesions/ Ulcerations Neck: Supple, No JVD, Negative Carotid Bruits, Trachea Midline, Thyroid Normal Size and Texture Lungs: Clear to auscultation, Normal air movement, No rhonchi, No wheeze, No rales Cardiovascular: Regular rate, Regular Rhythm, Normal S1, Normal S2, PMI Normal Abdomen: Bowel Sounds Present, Soft, Non Tender, Non-Distended, No Hepato-splenomegaly Extremities: No clubbing, No cyanosis, No edema Skin: No rashes, No breakdown Lymphatic: No Cervical, Supraclavicular, or Inguinal Adenopathy Neurological: Cranial nerves II-XII grossly intact, Neuro grossly intact Psych/Mental Status: Normal Affect, Appropriate Laboratory Results 08/13/19 21:38: WBC 5.2, RBC 4.71, Hgb 13.6, Hct 37.7 L, MCV 80.0, MCH 28.9, MCHC 36.1 H, RDW Std Deviation 38.3, RDW Coeff of Aleksandr 13.4, Plt Count 196, MPV 10.5, Immature Gran % (Auto) 0.200, Neut % (Auto) 35.3 L, Lymph % (Auto) 49.8 H, [place] % (Auto) 11.8 H, Eos % (Auto) 2.5, Baso % (Auto) 0.4, Absolute Neuts (auto) 1.9 L, Absolute Lymphs (auto) 2.61, Nucleated RBC % 0 08/13/19 21:38: Sodium 131 L, Potassium 4.3, Chloride 98, Carbon Dioxide 27.0, Anion Gap 6, BUN 10, Creatinine 0.86, Estim Creat Clear Calc 76.72, Est GFR (MDRD) Af Amer 120, Est GFR (MDRD) Non-Af 99, BUN/Creatinine Ratio 11.7, Glucose 109 H, Calcium 8.7, Troponin I < 0.015 08/14/19 02:30: Total Bilirubin 0.30, Direct Bilirubin 0.12, AST 11 L, ALT 23, Alkaline Phosphatase 55, Troponin I < 0.015, Total Protein 6.4, Albumin 3.2, Globulin 3.2, TSH 0.18 L 08/14/19 05:30: WBC 4.9, RBC 4.73, Hgb 13.4, Hct 38.1 L, MCV 80.5, MCH 28.3, MCHC 35.2, RDW Std Deviation 39.0, RDW Coeff of Aleksandr 13.3, Plt Count 185, MPV 10.8, Immature Gran % (Auto) 0.200, Neut % (Auto) 29.7 L, Lymph % (Auto) 55.3 H, [place] % (Auto) 11.3 H, Eos % (Auto) 3.3, Baso % (Auto) 0.2, Absolute Neuts (auto) 1.4 L, Absolute Lymphs (auto) 2.69, Nucleated RBC % 0 08/14/19 05:30: Sodium 133 L, Potassium 4.0, Chloride 98, Carbon Dioxide 28.0, Anion Gap 7, BUN 11, Creatinine 0.75, Estim Creat Clear Calc 87.97, Est GFR (MDRD) Af Amer 140, Est GFR (MDRD) Non-Af 116, BUN/Creatinine Ratio 14.7, Glucose 134 H, Calcium 8.4 L, Total Bilirubin 0.30, AST 10 L, ALT 24, Alkaline Phosphatase 54, Troponin I < 0.015, Total Protein 6.5, Albumin 3.3, Globulin 3.2, Albumin/Globulin Ratio 1.0, Triglycerides 80, Cholesterol 117, LDL Cholesterol 55, VLDL Cholesterol 16, HDL Cholesterol 46 08/14/19 06:21: POC Glucose 146 H Current Medications Acetaminophen (Tylenol) 650 mg PO Q6H PRN PRN PRN Reason: Pain Score 1-10/Temp > 100.7 F Al Hydroxide/Mg Hydroxide (Mylanta Ii) 30 ml PO Q6H PRN PRN PRN Reason: Gastric Burning Albuterol Sulfate (Ventolin Aerosols) 2.5 mg INHALATION Q4H PRN PRN PRN Reason: SHORTNESS OF BREATH Aspirin (Aspirin, Baby) 81 mg PO DAILY@0800 [facility] Last Admin: 08/14/19 06:27 Dose: 81 mg Documented by: Atorvastatin Calcium (Lipitor) 20 mg PO QHS [facility] Benztropine Mesylate (Cogentin) 1 mg PO BREAKFAST [facility] Last Admin: 08/14/19 10:49 Dose: 1 mg Documented by: Cholecalciferol (Vitamin D (25mcg)) 3,000 unit PO DAILY [facility] Last Admin: 08/14/19 10:48 Dose: 3,000 unit Documented by: Dextrose (D50w Syringe) 0 gm IV X1 PRN; Protocol PRN Reason: Hypoglycemia Divalproex Sodium (Depakote Er) 500 mg PO QHS [facility] Last Admin: 08/14/19 01:22 Dose: 500 mg Documented by: Enoxaparin Sodium (Lovenox) 40 mg SC DAILY@0600 [facility] Last Admin: 08/14/19 00:44 Dose: Not Given Documented by: Fluticasone Propionate (Flonase Nasal [place]) 2 spray NASAL DAILY [facility] Last Admin: 08/14/19 10:48 Dose: 2 spray Documented by: Glucagon () 1 mg IM .X1 PRN PRN Reason: Hypoglycemia Sodium Chloride () 250 mls @ 15 mls/hr IV .[id number] PRN PRN Reason: Saline Flush Sodium Chloride () 250 mls @ 15 mls/hr IV .[id number] PRN PRN Reason: Additional IVPB Infusion Insulin Human Lispro (Humalog Kwikpen (Bkc)) 0 unit SC ACHS [facility]; Protocol Last Admin: 08/14/19 12:37 Dose: Not Given Documented by: Levothyroxine Sodium (Synthroid) 88 mcg PO DAILY@0600 [facility] Lisinopril (Zestril) 5 mg PO DAILY [facility] Last Admin: 08/14/19 06:25 Dose: 5 mg Documented by: Loratadine (Claritin) 10 mg PO DAILY [facility] Last Admin: 08/14/19 10:48 Dose: 10 mg Documented by: Melatonin (Melatonin) 3 mg PO QHS PRN PRN PRN Reason: INSOMNIA [facility] Admin: 08/14/19 10:48 Dose: 500 mg Documented by: Morphine Sulfate () 2 mg IV Q3H PRN PRN PRN Reason: Pain Score 6-10/10 Nitroglycerin (Nitrostat) 0.4 mg SUBLINGUAL Q5M PRN PRN Reason: CARDIAC/CHEST PAIN Ondansetron HCl (Zofran) 4 mg IV Q8H PRN PRN PRN Reason: NAUSEA/VOMITING Phenytoin Sodium (Dilantin) 100 mg PO TID [facility] Last Admin: 08/14/19 13:29 Dose: 100 mg Documented by: Polyethylene Glycol (Miralax) 17 gm PO DAILY [facility] Last Admin: 08/14/19 10:48 Dose: 17 gm Documented by: Propranolol HCl (Inderal) 20 mg PO BID [facility] Last Admin: 08/14/19 10:48 Dose: 20 mg Documented by: Quetiapine Fumarate (Seroquel) 150 mg PO BID [facility] Last Admin: 08/14/19 10:49 Dose: 150 mg Documented by: Sertraline HCl (Zoloft) 100 mg PO DAILY [facility] Last Admin: 08/14/19 10:48 Dose: 100 mg Documented by: Sodium Chloride () 10 - 40 ml IV UD PRN PRN Reason: SALINE FLUSH Discharge Activity: Return to Normal Activity Weight Bearing Status: Weight bearing as tolerated Call your doctor if you observe: Fever of 101 or Higher, Shortness of breath, Dizziness, Fainting spells, Chest pain, Increased palpitations (irregular heartbeat), Uncontrolled pain Home Medications: Medications to take at Discharge Aspirin [Aspirin, Baby] 81 mg PO DAILY@0800 05/05/13 Fluticasone 0.05% [Flonase Nasal [place]] 2 spray NASAL DAILY 05/05/13 Levothyroxine [Synthroid] 112 mcg PO DAILY 05/05/13 Lisinopril [Zestril] 5 mg PO DAILY 05/05/13 Polyethylene Glycol 3350 [Miralax] 17 gm PO DAILY 05/05/13 Propranolol HCl [Inderal (Beta Melina)] 20 mg PO BID 05/05/13 Quetiapine Fumarate [Seroquel XR] 300 mg PO QHS 05/05/13 Rosuvastatin Calcium [Crestor] 10 mg PO QHS 05/05/13 Sertraline HCl [Zoloft] 100 mg PO DAILY 05/05/13 fluticasone propionate 220 mcg/actuation HFA aerosol inhaler 1 puff INHALATION BID 05/02/17 Cholecalciferol (VIT D3) [Vitamin D3] 3,000 unit PO DAILY 04/17/19 Fluphenazine Decanoate 25 mg IJ UD 04/17/19 Hydrocortisone 1 applic TP BID 04/17/19 albuterol sulfate 90 mcg/actuation aerosol inhaler 2 puff INHALATION Q6H PRN 05/01/19 divalproex 500 mg tablet,extended release 24 hr 500 mg PO QHS tab 05/01/19 epinephrine 0.3 mg/0.3 mL injection, auto-injector 0.3 mg IM ONCE PRN 05/01/19 loratadine 10 mg tablet 10 mg PO DAILY 05/01/19 metformin 1,000 mg tablet 500 mg PO DAILY 05/01/19 phenytoin sodium extended 100 mg capsule 100 mg PO TID 05/01/19 Benztropine Mesylate 1 mg PO BREAKFAST 08/13/19 Primary Care Physician: Jayant Echeverria MD [Primary Care Provider] - Please follow up with your Primary Care Physician in: 1-2 weeks. Disposition: Home Minutes spent on discharge:: 27 Patient Condition:: Stable Medical Necessity - Tobacco Use Smoking Status: Former smoker Tobacco Use: Non-smoker Meaningful Use Info Meaningful Use Diagnoses (Choose all that apply): None applicable OBSV E&M: 75552 Observation care discharge
--- NOTE | 2019-08-14 14:34 | DCINST_ITS ---
- Discharge Diagnoses Current Active Problems: Current Active and Chronic Problems (Last Updated 05/28/19 @ 10:06 by Angela Malcolm) Chest pain (Acute) You will use the following diet at home:: Cardiac Your food should be the consistency of: Regular Discharge Activity: Return to Normal Activity Weight Bearing Status: Weight bearing as tolerated Call your doctor if you observe: Fever of 101 or Higher, Shortness of breath, Dizziness, Fainting spells, Chest pain, Increased palpitations (irregular heartbeat), Uncontrolled pain Allergies/Adverse Reactions: Allergies Penicillins Allergy (Mild, Verified 08/13/19 21:38) Unknown pollen extracts Adverse Reaction (Mild, Verified 08/13/19 21:38) Unknown bee stings Adverse Reaction (Mild, Uncoded 08/13/19 21:38) Unknown Medications to take at Discharge Aspirin [Aspirin, Baby] 81 mg PO DAILY@0800 05/05/13 Fluticasone 0.05% [Flonase Nasal [place]] 2 spray NASAL DAILY 05/05/13 Lisinopril [Zestril] 5 mg PO DAILY 05/05/13 Polyethylene Glycol 3350 [Miralax] 17 gm PO DAILY 05/05/13 Propranolol HCl [Inderal (Beta Melina)] 20 mg PO BID 05/05/13 Quetiapine Fumarate [Seroquel XR] 300 mg PO QHS 05/05/13 Rosuvastatin Calcium [Crestor] 10 mg PO QHS 05/05/13 Sertraline HCl [Zoloft] 100 mg PO DAILY 05/05/13 fluticasone propionate 220 mcg/actuation HFA aerosol inhaler 1 puff INHALATION BID 05/02/17 Cholecalciferol (VIT D3) [Vitamin D3] 3,000 unit PO DAILY 04/17/19 Fluphenazine Decanoate 25 mg IJ UD 04/17/19 Hydrocortisone 1 applic TP BID 04/17/19 albuterol sulfate 90 mcg/actuation aerosol inhaler 2 puff INHALATION Q6H PRN 05/01/19 divalproex 500 mg tablet,extended release 24 hr 500 mg PO QHS tab 05/01/19 epinephrine 0.3 mg/0.3 mL injection, auto-injector 0.3 mg IM ONCE PRN 05/01/19 loratadine 10 mg tablet 10 mg PO DAILY 05/01/19 metformin 1,000 mg tablet 500 mg PO DAILY 05/01/19 phenytoin sodium extended 100 mg capsule 100 mg PO TID 05/01/19 Benztropine Mesylate 1 mg PO BREAKFAST 08/13/19 Levothyroxine [Synthroid] 88 mcg PO DAILY@0600 #90 tab 08/14/19 The following prescriptions were given: Levothyroxine [Synthroid] 88 mcg PO DAILY@0600 #90 tab Transmission Status: Pending to [facility] [place] - [address] Primary Care Physician: Jayant Echeverria MD [Primary Care Provider] - Please follow up with your Primary Care Physician in: 1-2 weeks. Test Results: Test results from this visit will be discussed in further detail at your follow- up appointment, if applicable.
== END 2019-08-14 14:09 | disposition home or self-care (01) ==
LOC: ED 22:16 → PCU 22:39
PROVIDERS: Admitting Provider Internal Medicine; Emergency Provider Emergency Medicine; PCP Family Medicine; Referring Provider Internal Medicine; Visit Provider Hospitalist
DX: R07.89 Other chest pain (principal); G40.909 Epilepsy, unspecified, not intractable, without status epilepticus; I10 Essential (primary) hypertension; E78.5 Hyperlipidemia, unspecified; E11.9 Type 2 diabetes mellitus without complications; I47.1 Supraventricular tachycardia; F20.9 Schizophrenia, unspecified; I25.10 Atherosclerotic heart disease of native coronary artery without angina pectoris; F41.9 Anxiety disorder, unspecified; F32.9 Major depressive disorder, single episode, unspecified; E03.9 Hypothyroidism, unspecified; J44.9 Chronic obstructive pulmonary disease, unspecified; G80.9 Cerebral palsy, unspecified; Z79.899 Other long term (current) drug therapy; Z86.73 Personal history of transient ischemic attack (TIA), and cerebral infarction without residual deficits; Z79.82 Long term (current) use of aspirin; Z79.51 Long term (current) use of inhaled steroids; Z79.52 Long term (current) use of systemic steroids; Z79.84 Long term (current) use of oral hypoglycemic drugs; Z87.891 Personal history of nicotine dependence
CPT/HCPCS: 36415; 71045; 71046; 78452; 80048; 80053; 80061; 80076; 82962; 84443; 84484; 85025; 93005; 93017; 97802; 99218; 99285; A9500; J7030; A4216; G0378; J2785

== ENCOUNTER → 2019-10-16 09:01 | Outpatient (CLI) | payer MEDICARE, MEDICAID, SELFPAY ==
[2019-08-13 23:04] VITALS: BMI 31.4
[2019-10-16 09:28] LABS: Platelet Count 193 K/mm3 (150-450)
[2019-10-16 09:53] LABS: Hemoglobin A1c 6.9 % (3.8-5.6)
[2019-10-16 10:02] LABS: Valproic Acid (Depakene) Level 104 ug/mL (50-100)
[2019-10-16 10:10] LABS: AST(SGOT) 14 U/L (15-37); Alanine Aminotransfer ALT/SGPT 21 U/L (16-61); Thyroid Stim Hormone (TSH) 2.83 uIU/mL (0.358-3.74)
== END ==
PROVIDERS: PCP Family Medicine; Referring Provider Psychiatry & Neurology Psychiatry; Visit Provider Psychiatry & Neurology Psychiatry
DX: Z79.899 Other long term (current) drug therapy (principal); E03.9 Hypothyroidism, unspecified
CPT/HCPCS: 36415; 80164; 82140; 83036; 84443; 84450; 84460; 85049

== ENCOUNTER → 2019-12-19 10:36 | Outpatient (CLI) | payer MEDICARE, MEDICAID, SELFPAY ==
[2019-08-13 23:04] VITALS: BMI 31.4
[2019-12-19 11:38] LABS: Valproic Acid (Depakene) Level 70 ug/mL (50-100)
== END ==
PROVIDERS: PCP Family Medicine; Referring Provider Psychiatry & Neurology Psychiatry; Visit Provider Psychiatry & Neurology Psychiatry
DX: Z79.899 Other long term (current) drug therapy (principal)
CPT/HCPCS: 36415; 80164; 82140

== ENCOUNTER → 2020-04-17 08:23 | Outpatient (CLI) | payer MEDICARE, MEDICAID, SELFPAY ==
[2019-08-13 23:04] VITALS: BMI 31.4
[2020-04-17 10:32] LABS: Anion Gap 7 (5-15); BUN 8 mg/dL (7-18); BUN/Creat Ratio 9.4 RATIO (10-20); Calcium,Total 9.2 mg/dL (8.5-10.1); Chloride 105 mmol/L (98-107); Cholesterol 144 mg/dL (200); Creatinine, Serum 0.85 mg/dL (0.70-1.30); EST Glomerular Filtration Rate 99 mL/min (>60); Est Glom Filt Rate - Afr Amer 120 mL/min (>60); Glucose 143 mg/dL (74-106); High Density Lipoprotein 53 mg/dL; Potassium 4.3 mmol/L (3.5-5.1); Sodium Level 138 mmol/L (136-145); Triglycerides 102 mg/dL; Very Low Density Lipoprotein 20 mg/dL (5-40)
[2020-04-17 11:14] LABS: Microalbumin,Random Urine 9.6 mg/L (NO RANGE EST.)
== END ==
PROVIDERS: PCP Family Medicine; Referring Provider Family Medicine; Visit Provider Family Medicine
DX: Z11.9 Encounter for screening for infectious and parasitic diseases, unspecified (principal)
CPT/HCPCS: 36415; 80048; 80061; 82043

== ENCOUNTER 2020-09-21 14:35 | Emergency (ER) | payer MEDICARE, MEDICAID, SELFPAY ==
[2019-08-13 23:04] VITALS: BMI 31.4
[2020-09-21 14:35] VITALS: BP 141/100; PULSE 88; RESP 18; TEMP 35.9; O2SAT 100; BMI 29.4
[2020-09-21 14:37] VITALS: BP 141/100; PULSE 88; RESP 18; TEMP 35.9; O2SAT 100
--- NOTE | 2020-09-21 14:56 | CT_ITS ---
STUDY: CT SOFT TISSUE NECK WITHOUT CONTRAST REASON FOR EXAM: Male, 54 years old. diff swallowing RADIATION DOSAGE (If Supplied By Facility): CTDIvol = ( 17.81 ) mGy, DLP = ( 387.02 ) mGycm TECHNIQUE: The patient was scanned in a multi-detector CT scanner. High resolution transaxial imaging was performed without the administration of intravenous contrast material. Sagittal and coronal images were reconstructed. Individualized dose optimization techniques were used for this CT. COMPARISON: None. FINDINGS: Normal bilateral parotid glands. Normal bilateral executor of estate spaces. Normal bilateral parapharyngeal spaces. Normal bilateral carotid spaces. Normal bilateral sublingual and submandibular glands and spaces. Normal visualized nasopharynx. Normal retropharyngeal space. The level of C5, there is a soft tissue lesion in the prevertebral soft tissues measuring approximately 1.3 x 1.2 cm most likely representing a Zenker''s diverticulum. Barium swallow would be helpful for further evaluation in this regard Normal visualized bilateral faucial tonsils. The visualized tongue, tongue base and oropharynx are normal. The visualized cervical lymph nodes (levels I-) are within normal size limits, and maintain normal morphology. There is no demonstrated solid or cystic mass lesion. Normal epiglottis, bilateral vallecula and hypopharynx. The pre-epiglottic and paraglottic adipose spaces are normal. Normal visualized bilateral piriform sinuses, aryepiglottic folds, vocal cords, and arytenoid-cricoid articulations. Normal subglottic trachea. Normal bilateral lobes of the thyroid gland. Normal visualized pulmonary apices. Moderate mucosal thickening of the lateral maxillary ethmoid and right frontal sinuses . Cervical spine demonstrates moderate spondylosis CT/Soft Tissue Neck without Contr IMPRESSION: Soft tissue masslike density in the prevertebral soft tissues at approximately C5 most likely representing Zenker''s diverticulum.. This may be further assessed with barium swallow. No other significant abnormality with findings as above Electronically Signed: Chase Weiner MD at 16:51 EDT , Service support ,
--- NOTE | 2020-09-21 14:56 | EKG12_ITS ---
Test Reason : SOB Blood Pressure : / mmHG Vent. Rate : 086 BPM Atrial Rate : 086 BPM P-R Int : 140 ms QRS Dur : 086 ms QT Int : 360 ms P-R-T Axes : 054 019 025 degrees QTc Int : 430 ms Normal sinus rhythm Normal ECG Confirmed by JULIA ZAMORA, JOANNA ([id number]), sound editor SUZAN GASTON ([id number]) on 09/23/2020 10:05:24 AM Referred By: ELIZA Confirmed By:JOANNA DUMONT MD
--- NOTE | 2020-09-21 14:56 | CT_ITS ---
STUDY: CT BRAIN WITHOUT CONTRAST REASON FOR EXAM: Male, 54 years old. difficulty swallowing RADIATION DOSAGE (If Supplied By Facility): CTDIvol = ( 44.99 ) mGy, DLP = ( 745.49 ) mGycm TECHNIQUE: Transaxial CT imaging of the brain was performed without administration of intravenous contrast material. Individualized dose optimization techniques were used for this CT. COMPARISON: No relevant priors. FINDINGS: Normal soft tissue structures. Normal calvarium. Moderate atrophy and periventricular white matter ischemic changes.. Normal basal ganglia and thalami. Normal brainstem. Normal cerebellum. Empty sella deformity likely of no significance. There is no intracranial hemorrhage. There are no findings of an acute ischemic infarction. There is moderate mucosal thickening within the maxillary ethmoid and right frontal sinuses CT/Brain/Head without Contrast IMPRESSION: Moderate atrophy and periventricular white matter ischemic changes. No evidence for acute bleed. If concern for acute infarct MRI recommended. Electronically Signed: Chase Weiner MD at 16:45 EDT , Service support ,
[2020-09-21] MEDS: Ipratropium/Albuterol Sulfate 3 ML AMPUL.NEB INHALATION (15:22)
[2020-09-21 15:23] VITALS: PULSE 84; RESP 18
[2020-09-21 15:34] LABS: Absolute Lymphocyte Count 1.58 X10^3/uL (0.83-4.51); Absolute Neutrophil Count 2.4 X10^3/uL (2.0-7.7); Basophil# 0.04 X10^3/uL; Basophil% 0.8 % (0-1); Eosinophil# 0.73 X10^3/uL; Hematocrit 39.3 % (40-54); Hemoglobin 13.9 g/dL (13.0-16.5); Lymphocyte # 1.58 X10^3/ul (0.83-4.51); Lymphocyte % 30.3 % (19-41); Mean Corp Hgb Conc 35.4 g/dL (32-36); Mean Corpuscular Hgb 27.9 pg (27.0-32.0); Mean Corpuscular Volume 78.9 fL (80-94); Mean Platelet Vol. 10.7 fl (6.2-12.0); Monocyte% 9.6 % (0-10); NRBC Flagged by Analyzer 0 % (0-5); Neutrophil # 2.36 X10^3/uL (2.7-7.7); Neutrophil % 45.1 % (47-70); Platelet Count 237 K/mm3 (150-450); RBC Distribution Width CV 13.9 % (11.6-14.6); RBC Distribution Width SD 39.8 fl (35.1-43.9); Red Blood Count 4.98 M/mm3 (4.6-6.2); White Blood Count 5.2 K/mm3 (4.4-11.0)
[2020-09-21 15:46] LABS: Anion Gap 2 (5-15); BUN 9 mg/dL (7-18); BUN/Creat Ratio 12.6 RATIO (10-20); Calcium,Total 9.6 mg/dL (8.5-10.1); Chloride 104 mmol/L (98-107); Creatinine, Serum 0.72 mg/dL (0.70-1.30); EST Glomerular Filtration Rate 121 mL/min (>60); Est Glom Filt Rate - Afr Amer 147 mL/min (>60); Estimated Creatinine Clearance 90.58 ml/min; Glucose 114 mg/dL (74-106); Potassium 4.9 mmol/L (3.5-5.1); Sodium Level 137 mmol/L (136-145)
--- NOTE | 2020-09-21 16:35 | EX.ED.DYSGE1 ---
HPI History of Present Illness Chief Complaint: Shortness of Breath Informant: patient Onset/Context/Timing Onset: Weeks Context: Gradual Onset Timing: Waxes and wanes Current Severity: Mild Maximum Severity: Moderate Narrative Narrative: Patient presents with shortness of breath, cough, sore throat for the past week. He reports increased pain with swallowing and as if there is something caught in his throat. He denies chest pain. No fever. [facility] Medical History Anxiety Atherosclerosis of coronary artery of [place] heart without angina pectoris Cerebral palsy Constipation COPD (chronic obstructive pulmonary disease) Depressed Essential hypertension History of stroke (~2003) Hyperlipidemia Hypothyroidism Schizophrenia Screening for intestinal cancer SVT (supraventricular tachycardia) Type 2 diabetes mellitus without complication Home Medications aspirin 81 mg PO DAILY@0800 05/05/13 [History Last Taken 04/17/19] fluticasone propionate 2 spray NASAL DAILY 05/05/13 [History Last Taken 04/17/19] lisinopril 5 mg PO DAILY 05/05/13 [History Last Taken 04/17/19] polyethylene glycol 3350 17 gm PO DAILY 05/05/13 [History Last Taken 04/17/19] propranolol 20 mg PO BID 05/05/13 [History Last Taken 04/17/19] quetiapine 300 mg PO QHS 05/05/13 [History Last Taken 04/16/19] rosuvastatin 10 mg PO QHS 05/05/13 [History Last Taken 04/16/19] sertraline 100 mg PO DAILY 05/05/13 [History Last Taken 04/16/19] fluticasone propionate 220 mcg/actuation HFA aerosol inhaler 1 puff INHALATION BID 05/02/17 [History Last Taken 04/17/19] cholecalciferol (vitamin D3) 3,000 unit PO DAILY 04/17/19 [History Last Taken 04/17/19] fluphenazine decanoate 25 mg IJ UD 04/17/19 [History Last Taken 04/14/19] hydrocortisone 1 applic TP BID 04/17/19 [History Last Taken 04/17/19] albuterol sulfate 90 mcg/actuation aerosol inhaler 2 puff INHALATION Q6H PRN 05/01/19 [History Last Taken Unknown] divalproex 500 mg tablet,extended release 24 hr 500 mg PO QHS tab 05/01/19 [History Last Taken Unknown] epinephrine 0.3 mg/0.3 mL injection, auto-injector 0.3 mg IM ONCE PRN 05/01/19 [History Last Taken Unknown] loratadine 10 mg tablet 10 mg PO DAILY 05/01/19 [History Last Taken Unknown] metformin 1,000 mg tablet 500 mg PO DAILY 05/01/19 [History Last Taken Unknown] phenytoin sodium extended 100 mg capsule 100 mg PO TID 05/01/19 [History Last Taken Unknown] benztropine 1 mg PO BREAKFAST 08/13/19 [History Last Taken Unknown] levothyroxine 88 mcg PO DAILY@0600 #90 tab 08/14/19 [Rx Last Taken Unknown] albuterol sulfate [Ventolin HFA] 1 - 2 puff INHALATION Q4H PRN PRN #1 inhaler 09/21/20 [Rx Last Taken Unknown] doxycycline monohydrate 100 mg PO BID #20 cap 09/21/20 [Rx Last Taken Unknown] prednisone 40 mg PO DAILY #8 tab 09/21/20 [Rx Last Taken Unknown] Allergy/AdvReac Type Severity Reaction Status Date / Time Penicillins Allergy Mild Unknown Verified 08/13/19 21:38 pollen extracts AdvReac Mild Unknown Verified 08/13/19 21:38 bee stings AdvReac Mild Unknown Uncoded 08/13/19 21:38 Family History Grandmother Hypertension Diabetes Brother Seizures Mother Hypertension Father Hypertension Social History Smoking Status: Former smoker alcohol intake: never ROS ROS ED Constitutional Constitutional ED: Denies chills or fever(s) Eyes Eyes: Denies change in vision ENT ENT ED: Reports sore throat and other Details: Congestion Cardiovascular Cardiovascular: Denies chest pain Respiratory/Chest Respiratory/Chest: Reports cough and dyspnea; Denies sputum Gastrointestinal Gastrointestinal: Denies abdominal pain, diarrhea, nausea or vomiting Genitourinary Genitourinary ED: Denies dysuria Musculoskeletal Musculoskeletal: Denies back pain Integumentary Denies rash Neurologic Neurologic: Denies headache(s) or weakness Psychiatric Psychiatric: Denies anxiety or depression Allergic/Immunologic Allergic/Immunologic ED: Denies urticaria EXAM Physical Exam Const Vital Signs: 09/21/20 14:35 09/21/20 14:37 09/21/20 14:51 Temperature 96.6 F L 96.6 F L Temperature Source Temporal Temporal Pulse Rate 88 88 Respiratory Rate 18 18 Respiratory Effort Short of Breath Blood Pressure 141/100 H 141/100 H Blood Pressure Mean 113 113 Pulse Ox 100 100 Oxygen Delivery Method Room Air Room Air 09/21/20 15:23 09/21/20 17:07 Temperature Temperature Source Pulse Rate 84 88 Respiratory Rate 18 18 Respiratory Effort Blood Pressure 147/86 H Blood Pressure Mean 106 Pulse Ox 99 Oxygen Delivery Method Room Air Positive well nourished and well developed General Appearance ED: well developed HEENT Reports normocephalic and head/scalp atraumatic HEENT Narrative: Posterior pharynx examination unremarkable. Patient speaks with strong voice and tolerates secretions well. Eyes PERRL and EOMs intact bilaterally Neck supple Chest Wall inspection of chest normal and palpation of chest normal Resp normal respiratory effort Resp Narrative: Mild expiratory wheeze. Cardio regular rate and regular rhythm GI normal to inspection, nondistended, normoactive bowel sounds Palpation: soft Extremity normal to inspection Neuro oriented x3 and no sensory deficits noted Sensorium / Orientation: alert Motor Exam: strength 5/5 throughout Psych mental status grossly normal Skin no rashes or lesions noted MDM MDM MDM Narrative Medical decision making narrative: CT scan of the head and soft tissue neck are obtained. Lab work, EKG, chest x-ray obtained. Covid swab obtained. Lab Data Labs: Laboratory Results - last 24 hr 09/21/20 09/21/20 15:10 15:10 WBC 5.2 RBC 4.98 Hgb 13.9 Hct 39.3 L MCV 78.9 L MCH 27.9 MCHC 35.4 RDW Std Deviation 39.8 RDW Coeff of Aleksandr 13.9 Plt Count 237 MPV 10.7 Immature Gran % (Auto) 0.200 Neut % (Auto) 45.1 L Lymph % (Auto) 30.3 [place] % (Auto) 9.6 Eos % (Auto) 14.0 H Baso % (Auto) 0.8 Absolute Neuts (auto) 2.4 Absolute Lymphs (auto) 1.58 Nucleated RBC % 0 Sodium 137 Potassium 4.9 Chloride 104 Carbon Dioxide 31.0 Anion Gap 2 L BUN 9 Creatinine 0.72 Estim Creat Clear Calc 90.58 Est GFR (MDRD) Af Amer 147 Est GFR (MDRD) Non-Af 121 BUN/Creatinine Ratio 12.6 Glucose 114 H Calcium 9.6 Covid swab negative Radiography Chest X-Ray - ED: 1 View, Read by ED Physician and Chronic Changes Diagnostic Testing: Radiology Impression Brain CT 09/21/20 14:56 IMPRESSION: Moderate atrophy and periventricular white matter ischemic changes. No evidence for acute bleed. If concern for acute infarct MRI recommended. Electronically Signed: Chase Weiner MD at 16:45 EDT , Service support , Soft Tissue Neck CT 09/21/20 14:56 IMPRESSION: Soft tissue masslike density in the prevertebral soft tissues at approximately C5 most likely representing Zenker''s diverticulum.. This may be further assessed with barium swallow. No other significant abnormality with findings as above Electronically Signed: Chase Weiner MD at 16:51 EDT , Service support , EKG Initial EKG: Attestation: I personally reviewed and interpreted this EKG as follows: Interpretation: Sinus Rhythm (Sinus 86 with no acute ischemia.) Treatment and Re-Evaluation Comments:: On repeat examination patient resting comfortably. He tolerated bedside swallow test here without difficulty. He does feel improved after DuoNeb treatment. He will be given albuterol inhaler and steroids to help with inflammation. CT scan neck reveals soft tissue density at C5 likely representing a Zenker's diverticulum. Patient advised to follow soft diet and return for any worsened symptoms or concerns. He will be referred to ENT for follow-up for further evaluation. Discharge Plan Triage Chief Complaint: Shortness of Breath ED Provider: Darleen Kennedy Dx/Rx/DC Orders Clinical Impression: Bronchitis, Zenker diverticulum Instructions: ED Bronchitis with Wheezing (Adult) Prescriptions: New albuterol sulfate [Ventolin HFA] 1 INHALER inhaler 1 - 2 puff inhalation Q4H PRN PRN (Reason: Wheezing) Qty: 1 RF: 0 prednisone 20 mg tablet 40 mg PO DAILY Qty: 8 RF: 0 doxycycline monohydrate 100 mg capsule 100 mg PO BID Qty: 20 RF: 0 No Action fluticasone propionate [Flovent HFA] 220 mcg/actuation HFA aerosol inhaler 1 puff INHALATION BID RF: 0 albuterol sulfate [ProAir HFA] 90 mcg/actuation HFA aerosol inhaler 2 puff INHALATION Q6H PRN (Reason: sob) RF: 0 phenytoin sodium extended 100 mg capsule 100 mg PO TID RF: 0 loratadine 10 mg tablet 10 mg PO DAILY RF: 0 epinephrine [EpiPen] 0.3 mg/0.3 mL auto-injector 0.3 mg IM ONCE PRN (Reason: Allergies) RF: 0 metformin 1,000 mg tablet 500 mg PO DAILY RF: 0 divalproex 500 mg tablet extended release 24 hr 500 mg PO QHS RF: 0 polyethylene glycol 3350 17 GM packet 17 gm PO DAILY RF: 0 aspirin 81 MG tablet,chewable 81 mg PO DAILY@0800 RF: 0 lisinopril 5 MG tablet 5 mg PO DAILY RF: 0 propranolol 20 MG tablet 20 mg PO BID RF: 0 fluticasone propionate 1 SPRAY spray,suspension 2 spray NASAL DAILY RF: 0 sertraline 100 MG tablet 100 mg PO DAILY RF: 0 rosuvastatin 10 MG tablet 10 mg PO QHS RF: 0 quetiapine 300 MG tablet extended release 24 hr 300 mg PO QHS RF: 0 hydrocortisone 2.5% cream with perineal applicator 1 applic TP BID RF: 0 fluphenazine decanoate 25 MG/ML solution 25 mg IJ UD RF: 0 cholecalciferol (vitamin D3) 1,000 UNIT tablet 3,000 unit PO DAILY RF: 0 benztropine 1 MG tablet 1 mg PO BREAKFAST RF: 0 levothyroxine 88 MCG tablet 88 mcg PO DAILY@0600 Qty: 90 RF: 0 Primary Care Provider: Jayant Echeverria Referrals: Naveed Madrid MD [STAFF PHYSICIAN] - As soon as possible Jayant Echeverria MD [Primary Care Provider] - 1 Week if not improving Disposition Disposition: Home, Self Care
--- NOTE | 2020-09-21 16:40 | RAD_ITS ---
STUDY: X-RAY CHEST REASON FOR EXAM: Male, 54 years old. SOB TECHNIQUE: AP portable COMPARISON: 08/14/2019 FINDINGS: Mild bilateral perihilar interstitial thickening with mildly diffusely increased parenchymal density possibly representing early changes of atypical viral pneumonia.. There is no demonstrated pleural abnormality. Normal size heart. Normal mediastinum and vamsi. Normal visualized pulmonary arteries. Normal visualized aortic arch and descending thoracic aorta. Dorsal spine and shoulders demonstrate degenerative change. Normal visualized ribs, and clavicles. There is no demonstrated abnormality of the visualized soft tissue structures of the upper abdomen. RAD/Chest 1 View (Portable) IMPRESSION: Question mild changes of Covid 19 pneumonia. Clinical correlation recommended. Electronically Signed: Chase Weiner MD at 17:09 EDT , Service support ,
[2020-09-21 17:07] VITALS: BP 147/86; PULSE 88; RESP 18; O2SAT 99
[2020-09-21] MEDS: Doxycycline 100 MG CAPSULE PO (17:20)
[2020-09-21] MEDS: predniSONE 20 MG Tablet 40 MG PO (17:20)
[2020-09-21 17:37] VITALS: BP 143/91; PULSE 85; RESP 20; O2SAT 99
--- NOTE | 2020-09-21 17:38 | ED.RN ---
REVIEWED D/C INSTRUCTIONS, FOLLOW UP CARE, PRESCRIPTIONS, AND S/S THAT WOULD WARRANT A RETURN TO THE ED WITH PT. PT VERBALIZED AN UNDERSTANDING AND DENIES FURTHER QUESTIONS FOR THIS RN. PT SKIN P/W/D, RESP EVEN AND UNLABORED, PT A&O X 3, NO DISTRESS NOTED. PT ASSISTED OUT OF ED IN WHEELCHAIR TO WAITING ROOM TO WAIT FOR CAB.
== END 2020-09-21 17:40 | disposition home or self-care (01) ==
PROVIDERS: Emergency Provider Emergency Medicine; PCP Family Medicine
DX: J40 Bronchitis, not specified as acute or chronic (principal); K22.5 Diverticulum of esophagus, acquired; I25.10 Atherosclerotic heart disease of native coronary artery without angina pectoris; I47.1 Supraventricular tachycardia; I10 Essential (primary) hypertension; J44.9 Chronic obstructive pulmonary disease, unspecified; E78.5 Hyperlipidemia, unspecified; E03.9 Hypothyroidism, unspecified; E11.9 Type 2 diabetes mellitus without complications; G80.9 Cerebral palsy, unspecified; F32.9 Major depressive disorder, single episode, unspecified; F41.9 Anxiety disorder, unspecified; F20.9 Schizophrenia, unspecified; Z79.82 Long term (current) use of aspirin; Z79.84 Long term (current) use of oral hypoglycemic drugs; Z79.899 Other long term (current) drug therapy; Z87.891 Personal history of nicotine dependence; Z86.73 Personal history of transient ischemic attack (TIA), and cerebral infarction without residual deficits
CPT/HCPCS: 70450; 70490; 71045; 80048; 85025; 87426; 93005; 94640; 99285; A4216

== ENCOUNTER → 2020-11-02 13:32 | Outpatient (CLI) | payer MEDICARE, MEDICAID, SELFPAY ==
--- NOTE | 2020-11-02 13:35 | ST.MBS ---
Modified Barium Swallow - Patient Information Study Date: 11/02/20 Study Time: 13:35 Direct Billable Minutes: 135 Total Minutes procedure & reportin Diagnosis: oropharyngeal dysphagia Referring Physician: Naveed Madrid Reason for Referral: Pt was referred for a Modified Barium Swallow Study by Dr. Madrid. This patient reports difficulty is food getting stuck in his throat. He resides in a nursing home, is edentulous and endorses having lost 10-15lbs over the past month d/t only consuming soft and pureed textures. Denies any recent or recurrent pneumonias. Of note, the patient presented to [facility] ED on 09/21/2020 with shortness of breath, cough, sore throat for the past week. He reported increased pain with swallowing, as if there is something caught in his throat. Soft Tissue Neck CT was completed 09/21/20 @ 14:56 IMPRESSION: Soft tissue masslike density in the prevertebral soft tissues at approximately C5 most likely representing Zenker's diverticulum. This may be further assessed with barium swallow. No other significant abnormality with findings as above. Medical History: Anxiety Atherosclerosis of coronary artery of [place] heart without angina pectoris Cerebral palsy Constipation COPD (chronic obstructive pulmonary disease) Depressed Essential hypertension History of stroke (~2003) Hyperlipidemia Hypothyroidism Schizophrenia Screening for intestinal cancer SVT (supraventricular tachycardia) Type 2 diabetes mellitus without complication Home Medications Dentition: Edentulous Mental Status: Impaired - difficulty following commands for participation in this study - difficulty controlling bolus/rate of intake Respiratory Status: Oxygenating on Room Air - Penetration-Aspiration Scale Penetration-Aspiration Scale: OBJECTIVE ASSESSMENT OF SWALLOW FUNCTION (QUANTITATIVE ? PER TRIAL): PENETRATION / ASPIRATION SCALE (PIZARRO): 1 = does not enter airway 2 = enters airway/above vocal folds/ejected 3 = enters airway/above vocal folds/not ejected 4 = enters airway/contacts vocal folds/ejected 5 = enters airway/contacts vocal folds/not ejected 6 = enters airway/below vocal folds/ejected 7 = enters airway/below vocal folds/not ejected despite effort 8 = enters airway/below vocal folds/no effort VIDEOFLOROSCOPIC SCALE SCORE (PIZARRO): Grade I = aspiration of material that has penetrated into the laryngeal vestibule, intact cough reflex Grade II = aspiration < 10 % of the bolus, intact cough reflex Grade III = aspiration of < 10 % of the bolus, reduced cough reflex or aspiration of > 10 % of the bolus, intact cough reflex Grade IV = aspiration of > 10 % of the bolus, reduced cough reflex - Penetration-Aspiration Scale Score Thin Liquid via teaspoon Result: 1= does not enter airway Thin Liquid via teaspoon Trial 2 Result: 1= does not enter airway Thin Liquid via large single sip from cup Result: 1= does not enter airway Thin Liquid via sequential sips from cup Result: 1= does not enter airway Thin Liquid via single sip from straw Result: 1= does not enter airway Comment: post prandial cough noted after fluoroscopy was turned off; although not visualized, cannot exclude post prandial aspiration of pharyngeal residue Pudding Result: 1= does not enter airway Cookie Result: 1= does not enter airway Pudding + Esophageal Clearance Screening Result: 1= does not enter airway Thin Liquid via single sip from straw Trial 2 Result: 5= enters airways/contacts vocal folds/not ejected Comment: Contrast transiently dropped below folds during deglutition w/ subsequent aspiration of the penetrated contrast visible during the next trial; weak cough response to aspirate; Grade III = aspiration of < 10 % of the bolus, reduced cough reflex Thin Liquid via large single sip from cup Trial 2 Result: 1= does not enter airway Thin Liquid via small single sip from cup Result: 1= does not enter airway - Oral Phase Labial Seal: Interlabial escape, no progression to anterior lip Tongue Control During Bolus Hold: Escape to lateral buccal cavity/floor of mouth Bolus Preparation/Mastication: Disorganized chewing/mashing with solid pieces of bolus unchewed Bolus Transport/Lingual Motion: Slowed tongue motion Oral Residue: Residue collection on oral structures - Pharyngeal Phase Initiation of Pharyngeal Swallow: Bolus head in pyriforms Soft Palate Elevation: No bolus between soft palate and pharyngeal wall Laryngeal Elevation: Partial superior movement thyroid cart/partial apprx aryt-epig petiole Anterior Hyoid Excursion: Partial anterior movement Epiglottic Movement: Complete inversion Laryngeal Vestibule Closure at Height of Swallow: Incomplete; narrow column of air/contrast in laryngeal vestibule Pharyngeal Stripping Wave: Present - complete Pharyngoesophageal Segment Opening: Complete distension and complete duration; no obstruction of flow Tongue Base Retraction: Narrow column of contrast between tongue base & post. pharyngeal wall Pharyngeal Residue: Collection of residue within or on pharyngeal structures - Esophageal Phase Esophageal Clearance: Complete clearance - Diagnosis/Impression Diagnosis: mild oropharyngeal dysphagia Impression: Oral phase is characterized by: prolonged mastication w/ decreased efficacy d/t edentulous state slowed lingual motion for oral transportation Pharyngeal phase is characterized by: suboptimal bolus location w/ liquids reaching the pyriform sinuses prior to pharyngeal swallow onset premature pharyngeal bolus entry w/ thin liquid consumption via straw resulting in penetration/aspiration of thin liquids minimal anterior hyoid excursion w/ slowed epiglottic inversion pharyngeal contrast retention w/ thin liquids only, necessitating a double swallow to clear retained pyriform residue Esophageal phase: suspicious for possible anterior esophageal webbing at the C5 level Referrals: Consider a barium swallow esophagram as recommended per soft tissue neck CT on 09/21/20 to further assess Soft tissue masslike density in the prevertebral soft tissues at approximately C5 most likely representing Zenker's diverticulum. No evidence of diverticulum was found during this study. GI referral should be considered to assess esophagus as imaging was suspicious for possible anterior esophageal webbing at the C5 level. Pharyngeal retention of liquids only. Complete pharyngoesophageal clearance of more viscous boluses. Patient would benefit from follow up speech therapy to provide education and to assess implementation/carryover use of compensatory strategies and diet texture modifications d/t demonstrated difficulty following commands to control rate of intake and bolus volume during this study. Would benefit from pharyngeal strengthening exercises to address anterior hyoid excursion and pharyngeal contraction. Recommendations Diet: regular easy to chew textures/thin liquids Compensatory Strategies use fork and knife to finely chop any solid textures that are not soft and easy to chew; avoid dry/hard/chewy food items use extra sauce/gravy to moisten foods small bites small sips, one sip at a time alternate bites of solids and sips of liquid slow rate of intake no straws swallow twice if patient senses any food/drink retention in throat after swallowing sit upright at 90 degrees for all PO intake remain upright for 30 minutes after intake - Recommendations Recommend Repeat Modified Barium Swallow: No Education Completed: 1. Described result of evaluation., 2. Pt understands evaluation & agrees with goals and treatment plan., 4. Family/caregivers understand evaluation & agree w/ goals & tx plan. Comment: Patient resides in a nursing home and was brought to the appointment by a residential aidStewart. Images were reviewed and results/recommendations were discussed w/ the patient immediately following MBS conclusion. Findings/recommendations additionally shared w/ Stewart and he was provided with a written list of all recommendations for diet texture modification and compensatory strategy use. Education well received w/ Stewart stating that he will convey this information to the patient's vocational case manager. - Status Active ST Patient: Active - Contact Information [facility] Speech Therapy:: Treva Wheatley M.A., CCC-DIRECTOR OF INSTITUTIONAL RESEARCH Speech-Language Pathology [facility] [id number] [place] [address] [email or web address] [phone] 11/02/20 15:36
== END ==
PROVIDERS: PCP Family Medicine; Referring Provider Otolaryngology; Visit Provider Otolaryngology
DX: R13.12 Dysphagia, oropharyngeal phase (principal)
CPT/HCPCS: 74230; 92611

== ENCOUNTER → 2020-12-22 15:17 | Outpatient (CLI) | payer MEDICARE, MEDICAID, SELFPAY ==
--- NOTE | 2020-12-22 15:20 | RAD_ITS ---
STUDY: X-RAY CHEST REASON FOR EXAM: Male, 55 years old. Fever and cough TECHNIQUE: PA and lateral views of the chest. COMPARISON: 09/21/2020 FINDINGS: The lungs are clear and expanded. There is no demonstrated pleural abnormality. Normal size heart. Normal mediastinum and vamsi. Normal visualized pulmonary arteries. Normal visualized aortic arch and descending thoracic aorta. There are diffuse degenerative changes of the visualized thoracic spine. Normal visualized ribs, clavicles, and shoulders. There is no demonstrated abnormality of the visualized soft tissue structures of the upper abdomen. RAD/Chest PA and Lateral IMPRESSION: No acute pulmonary process Electronically Signed: Deion Pal MD at 16:52 EST , Service support ,
== END ==
PROVIDERS: PCP Family Medicine; Referring Provider Registered Nurse; Visit Provider Registered Nurse
DX: R06.02 Shortness of breath (principal)
CPT/HCPCS: 71046

== ENCOUNTER → 2021-01-14 15:01 | Outpatient (CLI) | payer MEDICARE, MEDICAID, SELFPAY ==
[2021-01-14 17:49] LABS: Hemoglobin A1c 6.1 % (3.8-5.6)
[2021-01-14 17:53] LABS: Anion Gap 8 (5-15); BUN 9 mg/dL (7-18); BUN/Creat Ratio 10.8 RATIO (10-20); Calcium,Total 9.6 mg/dL (8.5-10.1); Chloride 105 mmol/L (98-107); Cholesterol 135 mg/dL (200); Creatinine, Serum 0.83 mg/dL (0.70-1.30); EST Glomerular Filtration Rate 102 mL/min (>60); Est Glom Filt Rate - Afr Amer 123 mL/min (>60); Glucose 100 mg/dL (74-106); High Density Lipoprotein 47 mg/dL; Potassium 4.8 mmol/L (3.5-5.1); Sodium Level 137 mmol/L (136-145); T4 Free Direct 0.95 ng/dL (0.76-1.46); Thyroid Stim Hormone (TSH) 0.33 uIU/mL (0.358-3.74); Triglycerides 110 mg/dL; Very Low Density Lipoprotein 22 mg/dL (5-40)
== END ==
PROVIDERS: PCP Family Medicine; Referring Provider Family Medicine; Visit Provider Family Medicine
DX: E11.9 Type 2 diabetes mellitus without complications (principal); E03.9 Hypothyroidism, unspecified; Z79.4 Long term (current) use of insulin
CPT/HCPCS: 36415; 80048; 80061; 83036; 84439; 84443; 84481

== ENCOUNTER 2021-02-18 10:03 | Outpatient (CLI) | payer MEDICARE, MEDICAID, SELFPAY ==
[2021-02-18 10:30] LABS: Platelet Count 258 K/mm3 (150-450)
[2021-02-18 11:03] LABS: Valproic Acid (Depakene) Level 68 ug/mL (50-100)
[2021-02-18 12:11] LABS: AST(SGOT) 11 U/L (15-37); Alanine Aminotransfer ALT/SGPT 30 U/L (16-61); Prolactin 17.4 ng/mL
== END 2021-02-18 23:59 | disposition short-term general hospital (02) ==
LOC: LAB 10:05
PROVIDERS: PCP Family Medicine; Referring Provider Psychiatry & Neurology Psychiatry; Visit Provider Psychiatry & Neurology Psychiatry
DX: Z79.899 Other long term (current) drug therapy (principal)
CPT/HCPCS: 36415; 80164; 82140; 84146; 84450; 84460; 85049

== ENCOUNTER → 2021-07-20 | Outpatient (CLI) | payer MEDICARE, MEDICAID, SELFPAY ==
[2021-07-20 09:32] LABS: Absolute Lymphocyte Count 1.89 X10^3/uL (0.83-4.51); Absolute Neutrophil Count 1.6 X10^3/uL (2.0-7.7); Basophil# 0.02 X10^3/uL; Basophil% 0.5 % (0-1); Eosinophil# 0.39 X10^3/uL; Eosinophils% 9.1 % (0-5); Hematocrit 36.6 % (40-54); Hemoglobin 13.1 g/dL (13.0-16.5); Lymphocyte # 1.89 X10^3/ul (0.83-4.51); Mean Corp Hgb Conc 35.8 g/dL (32-36); Mean Corpuscular Hgb 27.2 pg (27.0-32.0); Mean Corpuscular Volume 75.9 fL (80-94); Mean Platelet Vol. 10.4 fl (6.2-12.0); Monocyte# 0.42 X10^3/uL; Monocyte% 9.8 % (0-10); NRBC Flagged by Analyzer 0 % (0-5); Neutrophil # 1.57 X10^3/uL (2.7-7.7); Neutrophil % 36.4 % (47-70); Platelet Count 257 K/mm3 (150-450); RBC Distribution Width CV 13.7 % (11.6-14.6); RBC Distribution Width SD 37.4 fl (35.1-43.9); Red Blood Count 4.82 M/mm3 (4.6-6.2); White Blood Count 4.3 K/mm3 (4.4-11.0)
[2021-07-20 10:09] LABS: Hemoglobin A1c 5.5 % (3.8-5.6)
[2021-07-20 11:17] LABS: Valproic Acid (Depakene) Level 66 ug/mL (50-100)
[2021-07-20 11:23] LABS: AST(SGOT) 29 U/L (15-37); Alanine Aminotransfer ALT/SGPT 39 U/L (16-61); Albumin, Serum 3.6 g/dL (3.2-5.0); Alkaline Phosphatase 56 U/L (45-117); Anion Gap 6 (5-15); BUN 9 mg/dL (7-18); BUN/Creat Ratio 11.3 RATIO (10-20); Calcium,Total 9.3 mg/dL (8.5-10.1); Chloride 101 mmol/L (98-107); Cholesterol 112 mg/dL (200); Creatinine, Serum 0.79 mg/dL (0.70-1.30); EST Glomerular Filtration Rate 108 mL/min (>60); Est Glom Filt Rate - Afr Amer 130 mL/min (>60); Globulin 3.5 g/dL (2.2-4.2); Glucose 89 mg/dL (74-106); High Density Lipoprotein 44 mg/dL; Potassium 4.4 mmol/L (3.5-5.1); Protein, Total 7.1 g/dL (6.4-8.2); Sodium Level 135 mmol/L (136-145); T4 Free Direct 0.89 ng/dL (0.76-1.46); Thyroid Stim Hormone (TSH) 1.56 uIU/mL (0.358-3.74); Triglycerides 71 mg/dL; Very Low Density Lipoprotein 14 mg/dL (5-40)
== END | disposition home or self-care (01) ==
LOC: LAB 08:38
PROVIDERS: PCP Family Medicine; Visit Provider Nurse Practitioner Adult Health
DX: F25.0 Schizoaffective disorder, bipolar type (principal); E11.9 Type 2 diabetes mellitus without complications; Z51.81 Encounter for therapeutic drug level monitoring
CPT/HCPCS: 36415; 80053; 80061; 80164; 83036; 84439; 84443; 85025

== ENCOUNTER → 2021-08-27 | Outpatient (CLI) | payer MEDICARE, MEDICAID, SELFPAY ==
[2021-08-27 09:18] LABS: Platelet Count 302 K/mm3 (150-450)
[2021-08-27 09:58] LABS: AST(SGOT) 13 U/L (15-37); Alanine Aminotransfer ALT/SGPT 26 U/L (16-61); Valproic Acid (Depakene) Level 92 ug/mL (50-100)
== END | disposition home or self-care (01) ==
LOC: LAB 08:10
PROVIDERS: PCP Family Medicine; Referring Provider Psychiatry & Neurology Psychiatry; Visit Provider Psychiatry & Neurology Psychiatry
DX: Z79.899 Other long term (current) drug therapy (principal)
CPT/HCPCS: 36415; 80164; 82140; 84450; 84460; 85049

== ENCOUNTER 2021-08-31 07:54 | Day surgery (SDC) | payer MEDICARE, MEDICAID, SELFPAY ==
[2021-08-31] VITALS (8 sets, daily range): BP systolic 116–154; BP diastolic 69–98; PULSE 72–80; RESP 16–18; TEMP 35.9–36.7; O2SAT 99–100; BMI 25.4
--- NOTE | 2021-08-31 08:39 | HP.PCM_ITS ---
History and Physical Date of Admission: 08/31/21 Intake Visit Reasons:?EGD DX GERD & Swallowing Issues Chief Complaint: gerd, constipation, hx polyps Policy Officer Required: No Is patient in pain?: No Allergies Penicillins Allergy (Mild, Verified 07/27/21 13:48) Unknownpollen extracts Adverse Reaction (Mild, Verified 07/27/21 13:48) Unknownbee stings Adverse Reaction (Mild, Uncoded 07/27/21 13:48) Unknown Medications aspirin 81 mg chewable tablet 81 mg PO DAILY@0800 antiplatelet 05/05/13 [History Confirmed 07/27/21] fluticasone propionate 50 mcg/actuation nasal spray,suspension 2 spray NASAL DAILY allergies 05/05/13 [History Confirmed 07/27/21] lisinopril 5 mg tablet 5 mg PO DAILY blood pressure 05/05/13 [History Confirmed 07/27/21] polyethylene glycol 3350 17 gram oral powder packet 17 g PO DAILY constipation 05/05/13 [History Confirmed 07/27/21] rosuvastatin 10 mg tablet 10 mg PO QHS cholesterol 05/05/13 [History Confirmed 07/27/21] sertraline 100 mg tablet 100 mg PO DAILY depression 05/05/13 [History Confirmed 08/13/19] fluticasone propionate 220 mcg/actuation HFA aerosol inhaler (Flovent HFA) 1 puff inhalation BID allergies 05/02/17 [History Confirmed 07/27/21] cholecalciferol (vitamin D3) 25 mcg (1,000 unit) tablet 3,000 unit PO DAILY sup plement 04/17/19 [History Confirmed 07/27/21] albuterol sulfate 90 mcg/actuation aerosol inhaler (ProAir HFA) 2 puff inhalation Q6H PRN sob 05/01/19 [History Confirmed 07/27/21] epinephrine 0.3 mg/0.3 mL injection, auto-injector (EpiPen) 0.3 mg IM ONCE PRN Allergies 05/01/19 [History Confirmed 07/27/21] metformin 1,000 mg tablet 500 mg PO DAILY diabetes 05/01/19 [History Confirmed 07/27/21] levothyroxine 88 mcg tablet 88 mcg PO DAILY@0600 #90 tabs 08/14/19 [Rx Confirmed 07/27/21] albuterol sulfate 90 mcg/actuation aerosol inhaler (Ventolin HFA) 1 - 2 puff inhalation Q4H PRN PRN Wheezing ##1 09/21/20 [Rx Confirmed 07/27/21] hydrocortisone 2.5 % topical cream with perineal applicator (Procto-Med HC) 1 applic MD BID-TID PRN 07/27/21 [History Confirmed 07/27/21] omeprazole 20 mg capsule,delayed release 20 mg PO DAILY 07/27/21 [History Confirmed 07/27/21] PFSH Medical History?(Updated 07/27/21 @ 13:[address] Lee Tirado MD) Anxiety Atherosclerosis of coronary artery of [place] heart without angina pectoris Cerebral palsy Constipation COPD (chronic obstructive pulmonary disease) Depressed Essential hypertension History of stroke (~2003) Hyperlipidemia Hypothyroidism Schizophrenia Screening for intestinal cancer SVT (supraventricular tachycardia) Type 2 diabetes mellitus without complication Family History? Grandmother Hypertension DiabetesBrother SeizuresMother HypertensionFather Hypertension Social History? Smoking Status:? Former smoker alcohol intake:? never HPI HPI HPI: KJ BEARD, is a 55 M who presents to the office today for surgical consultation regarding gastroesophageal reflux disease and need for screening colonoscopy.? The patient is referred by Dr. Jayant Echeverria and a written copy of my surgical consult recommendations will be returned to him.I have previously assisted the patient June 02, 2017 with a screening colonoscopy and identified a pedunculated polyp in the descending colon.Pathology demonstrated fragments of a tubulovillous adenoma.? At the time of the procedure follow-up colonoscopy 5 years was recommended but based upon the pathology follow-up at 3 years is recommended.? The patient however has progressive constipation as well.? He is on multiple different laxatives.? He has not noticed any bright red blood per rectum or melena. The patient also has reported history of a Zenker's diverticulum although he had a modified barium swallow done by speech therapy November 02, 2020 which makes comment about a soft tissue masslike density in the paravertebral soft tissues at approximately C5 likely representing a Zenker's diverticulum.? There was no evidence of the diverticulum however frowned during the study.? There is also felt to be esophageal webbing at C5. The patient has been seen by speech therapy and appropriate recommendations been made.? Most the time is swallowing is without consequence occasionally he gets a sensation that foods are stuck. The patient is accompanied by a java web user interface developer secondary to the patient's developmental disability. As of July 20 his hemoglobin was 13.1 and hematocrit 36.6. ROS General General: No weight change, appetite, fatigue, colon cancer, breast cancer or weakness HEENT HEENT: Yes difficulty swallowing; No eye injury, eye surgery, swollen glands or hoarseness Endo Endocrine: Yes thyroid disease and diabetes mellitus; No thyroid cancer, Hair loss, heat intolerance or cold intolerance Musc Musculoskeletal: No back problems, arthritis, rheumatoid arthritis, gout or joint pain Cardio Cardiovascular: No murmur, pacemaker, heart disease, atrial fibrillation, high blood pressure, heart attack, heart stent, palpitations, shortness of breat with exertion or chest pain Psych Psychiatric: No depression, anxiety or hearing voices Resp Respiratory: Yes shortness of breath, Yes sleep apnea, Yes cough, No COPD, No asthma, No emphysema and No wheezing Gastro Gastrointestinal: No abdominal pain, No nausea or vomiting, No diarrhea, No constipation, No blood in stool, Yes acid reflux, No hemorrhoids, No ulcers, No gallbladder problem and No black,tarry stools Sameer Hematologic: No blood thinners, No blood disorders, No bleeding, No anemia and No blood clots Neuro Neurologic: No system reviewed and no additional complaints, except as documented, No as per HPI, No abnormal gait, No abnormal hearing, No abnormal movements, No abnormal speech, No behavioral changes, No burning sensations, No confusion, Yes convulsions, No disequilibrium, No dizziness, No localized weakness, No frequent falls, No headache(s), No lack of coordination, No loss of vision, No memory loss, No numbness, No other visual disturbances, No radicular pain, No restless legs, No sensory deficit, No syncope, No tingling, No tremor(s), No weakness and No other Exam Const General: cooperative, comfortable and no acute distress Nutritional Appearance: average body habitus Orientation: alert and awake [facility] Head: normal to inspection Eyes General: appearance normal, both eyes and all related structures Neck Neck: normal visual inspection Resp Effort & Inspection: normal respiratory effort Auscultation: clear to auscultation bilaterally Cardio Rate: regular rate Rhythm: regular rhythm GI Inspection: normal to inspection Other: Soft, nontender, normal bowel sounds Skin General: no rashes or lesions noted Extrem General: no calf tenderness Assessment and Plan Assessment and Plan (1) Personal history of colonic polyps: ?Status:?Acute (2) Zenker diverticulum: ?Status:?Acute (3) Esophageal dysphagia: ?Status:?Acute (4) Constipation: ?Status:?Acute ?Plan: I recommended the patient very careful esophagogastroduodenoscopy looking potentially for Zenker's diverticulum or a esophageal web.? The patient is aware that if a web or stricture is identified then we will consider pursuing balloon dilatation.? He is aware of the technique, benefit, risk, alternatives Because of his history of progressive constipation and personal history of a tubulovillous adenoma of the descending colon I recommend a colonoscopy with possible biopsy or polypectomy as indicated.? He has had an opportunity to ask and have questions answered and we will proceed as noted. I appreciate the ongoing opportunity of assisting with the surgical care Copy:[facility] and [facility]. Jayant Tirado M.D., F.A.C.S. I have re-examined the patient. There are no clinical changes since date of exam. Lee Tirado M.D., F.A.C.S.
[2021-08-31] MEDS: Lactated Ringers 1,000 ML 15 ML IV (08:49)
--- NOTE | 2021-08-31 09:00 | COLBX_PTH ---
[id number] LOC: EN U#:[id number] AGE/SX: 55/M ROOM: RE08/31/[address]: Dr. Lee Tirado MD : 1965 BED: DIS: 08/31/2021 SPEC #: [id number] RECD: 08/31/21 11:04 STATUS: DENISE MCDANIELS #: [id number] CASH: 08/31/21 09:[address]: Lee Tirado DEPT: SURGICAL PATHOLOGY RECD BY: Aubrey Minaya ENTERED: 08/31/21 11:58 SP TYPE: COLON BX OTHR DR: Dr. Jayant Echeverria MD Tissues: A - Gastric mucous membrane B - Esophagus, NOS C - Ascending colon Procedures: Surgery Specimen Level IV HEADER OPERATION: Colonoscopy, EGD with biopsy ([facility] [place]) PRE-OP DIAGNOSIS: History of colonic polyps, Zenker?s diverticulum, esophageal dysphagia, constipation TISSUE SUBMITTED: A ? Antrum biopsy for H. pylori and path, B ? Distal esophagus biopsy, C ? Mid ascending colon biopsy MICROSCOPIC DIAGNOSIS A. Antrum, biopsy: Moderate gastritis. See microscopic description and comment. B. Distal esophagus, biopsy: Fragment of squamous epithelium with mild chronic inflammation. C. Mid ascending colon, biopsy: Fragments of tubular adenoma. SJ:rg 09/01/2021 COMMENT A. The results of immunohistochemistry for Helicobacter pylori will be reported separately ([id number]). MICROSCOPIC DESCRIPTION Slides are reviewed. A. The specimen shows fragments of gastric mucosa with chronic inflammatory cell infiltrates in the lamina propria consisting of lymphocytes and plasma cells, consistent with moderate chronic gastritis. GROSS DESCRIPTION A - Received in fixative is one container labeled with the patient's name and designated antrum biopsy. The specimen consists of one irregular fragment of light fajadro soft tissue that measures 0.3 x 0.3 x 0.1 cm. The specimen is totally submitted in one cassette. B - Received in fixative is one container labeled with the patient's name and designated distal esophagus biopsy. The specimen consists of one irregular fragment of light fajardo soft tissue that measures 0.5 x 0.3 x 0.1 cm. The specimen is totally submitted in one cassette. C - Received in fixative is one container labeled with the patient's name and designated mid ascending colon biopsy. The specimen consists of multiple irregular fragments of light fajardo soft tissue that in aggregate measure 0.9 x 0.3 x 0.1 cm. The specimen is totally submitted in one cassette. / SJ:rg 08/31/2021 TC:3 CPT: 07955 x3
--- NOTE | 2021-08-31 09:00 | IMM_PTH ---
PATIENT: KJ BEARD LOC: EN U#:[id number] AGE/SX: 55/M ROOM: RE08/31/[address]: Dr. Lee Tirado MD : 1965 BED: DIS: 08/31/2021 SPEC #: [id number] RECD: 08/31/21 13:09 STATUS: DENISE GAGNONAlexsandra #: [id number] CASH: 08/31/21 09:[address]: Lee Tirado DEPT: IMMUNOHISTOCHEMISTRY RECD BY: Lor Harding ENTERED: 08/31/21 13:10 SP TYPE: IMMUNO OTHR DR: Dr. Jayant Echeverria MD Tissues: A - Stomach, NOS Procedures: H Pylori (initial) PHYSICIAN & INSTITUTION [place] [id number] SPECIMEN INFORMATION: Tissue Source: A ? Antrum biopsy Clinical Info: History of colonic polyps, Zenker?s diverticulum, esophageal dysphagia, constipation Specimen Number: [id number] CPT code: 98810 METHODOLOGY: Deparaffinized sections of prefer/formalin-fixed tissue or PAP/DQ stained slides are incubated with monoclonal/polyclonal antibodies/oligonucleotide probes. Localization is made via biotin free immunoperoxidase method. Appropriate controls are performed and reacted as expected. Results on target cell population are indicated in the following table: RESULTS: ANTIBODY / CLONE RESULT Block A H Pylori (polyclonal) negative These tests were developed and their performance characteristics determined by [facility]. They may not have been cleared or approved by the U.S. Food and Drug Administration. The FDA has determined that such clearance or approval is not necessary. The above immunohistochemical/dualISH markers are ordered and reviewed by the Pathologist. INTERPRETATION: A. Antrum, biopsy: Negative for Helicobacter pylori organisms. SJ:gilda 09/01/2021
[2021-08-31 09:20] LABS: Bedside Glucose 95 mg/dL (74-106)
--- NOTE | 2021-08-31 10:01 | OP.EGD_ITS ---
Patient Name: Tony Delcid Procedure Date: 08/31/2021 9:13 AM Date of : 1965 Age: 55 Procedure: Upper GI endoscopy Indications: Suspected gastro-esophageal reflux disease Providers: Lee Tirado MD Referring MD: Lee Tirado MD Medicines: See the Anesthesia note for documentation of the administered medications Complications: No immediate complications. Procedure: Pre-Anesthesia Assessment: - Prior to the procedure, a History and Physical was performed, and patient medications and allergies were reviewed. The patient's tolerance of previous anesthesia was also reviewed. The risks and benefits of the procedure and the sedation options and risks were discussed with the patient. All questions were answered, and informed consent was obtained. Prior Anticoagulants: The patient has taken no previous anticoagulant or antiplatelet agents. ASA Grade Assessment: II - A patient with mild systemic disease. After reviewing the risks and benefits, the patient was deemed in satisfactory condition to undergo the procedure. After obtaining informed consent, the endoscope was passed under direct vision. Throughout the procedure, the patient's blood pressure, pulse, and oxygen saturations were monitored continuously. The pediatric colonoscope was introduced through the mouth, and advanced to the second part of duodenum. The upper GI endoscopy was accomplished without difficulty. The patient tolerated the procedure well. Scope In: 9:22:43 AM Scope Out: 9:30:19 AM Total Procedure Duration Time 0 hours 7 minutes 36 seconds Findings: The examined esophagus was normal. The Z-line was regular and was found 36 cm from the incisors. Biopsies were taken with a cold forceps for histology. Diffuse mild inflammation characterized by erythema was found in the entire examined stomach. Biopsies were taken with a cold forceps for histology. The examined duodenum was normal. Impression: - Normal esophagus. - Z-line regular, 36 cm from the incisors. Biopsied. - Gastritis. Biopsied. - Normal examined duodenum. Findings do not correlate with symptoms other than mild gastritis; possible motility disorder. Consider manometry if symptoms persist. Recommendation: - Discharge patient to home. - Resume previous diet. - Continue present medications. - Telephone my office for pathology results in 1 week. Procedure Code(s): --- Professional --- 33689, Esophagogastroduodenoscopy, flexible, transoral; with biopsy, single or multiple Diagnosis Code(s): --- Professional --- K29.70, Gastritis, unspecified, without bleeding CPT copyright 2017 [employer]. All rights reserved. The codes documented in this report are preliminary and upon clinical support associate review may be revised to meet current compliance requirements. Lee Tirado MD 08/31/2021 10:00:40 AM This report has been signed electronically. Number of Addenda: 0 Note Initiated On: 08/31/2021 9:13 AM
--- NOTE | 2021-08-31 10:02 | OP.CCLET_ITS ---
08/31/2021 Jayant Echeverria MD [address] [id number] Re : Upper GI endoscopy procedure for Tony Delcid Dear Dr. Echeverria This procedure was performed on Tuesday, August 31, 2021. My impressions and recommendations are as follows: Impressions : - Normal esophagus. - Z-line regular, 36 cm from the incisors. Biopsied. - Gastritis. Biopsied. - Normal examined duodenum. Findings do not correlate with symptoms other than mild gastritis; possible motility disorder. Consider manometry if symptoms persist. Recommendations : - Discharge patient to home. - Resume previous diet. - Continue present medications. - Telephone my office for pathology results in 1 week. My findings are described in the full procedure note, which is enclosed. If I can be of further assistance, please feel free to contact me at Doctor phone number(s): Work: . Sincerely, Lee Tirado MD 08/31/2021 10:00:40 AM This report has been signed electronically.
--- NOTE | 2021-08-31 10:08 | OP.COLON_ITS ---
Patient Name: Tony Delcid Procedure Date: 08/31/2021 9:30 AM Date of : 1965 Age: 55 Procedure: Colonoscopy Indications: High risk colon cancer surveillance: Personal history of colonic polyps Providers: Lee Tirado MD Referring MD: Lee Tirado MD Medicines: See the Anesthesia note for documentation of the administered medications Patient Profile: Last Colonoscopy: May 2017. Complications: No immediate complications. Procedure: Pre-Anesthesia Assessment: - Prior to the procedure, a History and Physical was performed, and patient medications and allergies were reviewed. The patient's tolerance of previous anesthesia was also reviewed. The risks and benefits of the procedure and the sedation options and risks were discussed with the patient. All questions were answered, and informed consent was obtained. Prior Anticoagulants: The patient has taken no previous anticoagulant or antiplatelet agents. ASA Grade Assessment: II - A patient with mild systemic disease. After reviewing the risks and benefits, the patient was deemed in satisfactory condition to undergo the procedure. After I obtained informed consent, the scope was passed under direct vision. Throughout the procedure, the patient's blood pressure, pulse, and oxygen saturations were monitored continuously. The pediatric colonoscope was introduced through the anus and advanced to the cecum, identified by appendiceal orifice and ileocecal valve. The colonoscopy was technically difficult and complex due to a tortuous colon. Successful completion of the procedure was aided by changing the patient to a supine position and using manual pressure. The patient tolerated the procedure well. The quality of the bowel preparation was good. The ileocecal valve and the appendiceal orifice were photographed. Scope In: 9:32:48 AM Scope Withdrawal Time 0 hours 8 minutes 36 seconds Scope Out: 9:52:45 AM Total Procedure Duration Time 0 hours 19 minutes 57 seconds Findings: The digital rectal exam findings include non-thrombosed external hemorrhoids, non-thrombosed internal hemorrhoids and internal hemorrhoids that prolapse with straining, but spontaneously regress to the resting position (Grade II). A 5 mm polyp was found in the proximal ascending colon. The polyp was sessile. The polyp was removed with a cold biopsy forceps. Resection and retrieval were complete. The colon (entire examined portion) was moderately tortuous. The exam was otherwise without abnormality. Impression: - Non-thrombosed external hemorrhoids, non-thrombosed internal hemorrhoids and internal hemorrhoids that prolapse with straining, but spontaneously regress to the resting position (Grade II) found on digital rectal exam. - One 5 mm polyp in the proximal ascending colon, removed with a cold biopsy forceps. Resected and retrieved. - Tortuous colon. - The examination was otherwise normal. Recommendation: - Discharge patient to home. - Resume previous diet. - Continue present medications. - Repeat colonoscopy in 5 years for surveillance based on pathology results. - Telephone my office for pathology results in 1 week. Procedure Code(s): --- Professional --- 17901, Colonoscopy, flexible; with biopsy, single or multiple Diagnosis Code(s): --- Professional --- Z86.010, Personal history of colonic polyps K64.1, Second degree hemorrhoids K64.4, Residual hemorrhoidal skin tags D12.2, Benign neoplasm of ascending colon Q43.8, Other specified congenital malformations of intestine CPT copyright 2017 [employer]. All rights reserved. The codes documented in this report are preliminary and upon typewriters functional tester review may be revised to meet current compliance requirements. Lee Tirado MD 08/31/2021 10:07:14 AM This report has been signed electronically. Number of Addenda: 0 Note Initiated On: 08/31/2021 9:30 AM
--- NOTE | 2021-08-31 10:09 | OP.CCLET_ITS ---
08/31/2021 Jayant Echeverria MD [address] [place] [address] Re : Colonoscopy procedure for Tony Delcid Dear Dr. Echeverria This procedure was performed on Tuesday, August 31, 2021. My impressions and recommendations are as follows: Impressions : - Non-thrombosed external hemorrhoids, non-thrombosed internal hemorrhoids and internal hemorrhoids that prolapse with straining, but spontaneously regress to the resting position (Grade II) found on digital rectal exam. - One 5 mm polyp in the proximal ascending colon, removed with a cold biopsy forceps. Resected and retrieved. - Tortuous colon. - The examination was otherwise normal. Recommendations : - Discharge patient to home. - Resume previous diet. - Continue present medications. - Repeat colonoscopy in 5 years for surveillance based on pathology results. - Telephone my office for pathology results in 1 week. My findings are described in the full procedure note, which is enclosed. If I can be of further assistance, please feel free to contact me at Doctor phone number(s): Work: . Sincerely, Lee Tirado MD 08/31/2021 10:07:14 AM This report has been signed electronically.
== END 2021-08-31 11:06 | disposition home or self-care (01) ==
LOC: EN 07:54 → AC 07:55
PROVIDERS: PCP Family Medicine; Referring Provider Surgery; Visit Provider Surgery
PROC: 0DJD8ZZ Inspection of Lower Intestinal Tract, Via Natural or Artificial Opening Endoscopic (ICD-10-PCS; CPT 45378; principal; 2021-08-31 08:55)
DX: Z12.11 Encounter for screening for malignant neoplasm of colon (principal); G80.9 Cerebral palsy, unspecified; J44.9 Chronic obstructive pulmonary disease, unspecified; E11.9 Type 2 diabetes mellitus without complications; D12.2 Benign neoplasm of ascending colon; K64.1 Second degree hemorrhoids; K64.4 Residual hemorrhoidal skin tags; Q43.8 Other specified congenital malformations of intestine; K29.70 Gastritis, unspecified, without bleeding; K21.9 Gastro-esophageal reflux disease without esophagitis; K22.5 Diverticulum of esophagus, acquired; K59.00 Constipation, unspecified; I25.10 Atherosclerotic heart disease of native coronary artery without angina pectoris; I10 Essential (primary) hypertension; E03.9 Hypothyroidism, unspecified; Z79.82 Long term (current) use of aspirin; Z79.84 Long term (current) use of oral hypoglycemic drugs; Z79.899 Other long term (current) drug therapy; Z86.010 Personal history of colon polyps; Z86.73 Personal history of transient ischemic attack (TIA), and cerebral infarction without residual deficits; Z87.891 Personal history of nicotine dependence
CPT/HCPCS: 43239; 45380; 82962; 88305; 88342; J7120; J2405

== ENCOUNTER → 2022-05-19 | Outpatient (CLI) | payer MEDICARE, MEDICAID, SELFPAY ==
[2022-05-19 13:01] LABS: Anion Gap 5 (5-15); BUN 10 mg/dL (7-18); BUN/Creat Ratio 12.1 RATIO (10-20); Calcium,Total 9.8 mg/dL (8.5-10.1); Chloride 99 mmol/L (98-107); Cholesterol 110 mg/dL (200); Creatinine, Serum 0.83 mg/dL (0.70-1.30); EST Glomerular Filtration Rate 102 mL/min (>60); Est Glom Filt Rate - Afr Amer 124 mL/min (>60); Free T3 2.2 pg/mL (2.18-3.98); Glucose 74 mg/dL (74-106); High Density Lipoprotein 50 mg/dL; Sodium Level 132 mmol/L (136-145); T4 Free Direct 0.95 ng/dL (0.76-1.46); Thyroid Stim Hormone (TSH) 0.84 uIU/mL (0.358-3.74); Triglycerides 57 mg/dL; Very Low Density Lipoprotein 11 mg/dL (5-40)
== END | disposition home or self-care (01) ==
LOC: MFPLAB 11:14
PROVIDERS: PCP Family Medicine; Referring Provider Family Medicine; Visit Provider Family Medicine
DX: I10 Essential (primary) hypertension (principal); E03.9 Hypothyroidism, unspecified
CPT/HCPCS: 36415; 80048; 80061; 84439; 84443; 84481

== ENCOUNTER → 2022-07-13 | Outpatient (CLI) | payer MEDICARE, MEDICAID, SELFPAY ==
[2022-07-13 07:55] LABS: Platelet Count 224 K/mm3 (150-450)
[2022-07-13 08:24] LABS: Valproic Acid (Depakene) Level 79 ug/mL (50-100)
[2022-07-13 08:27] LABS: AST(SGOT) 18 U/L (15-37); Alanine Aminotransfer ALT/SGPT 29 U/L (16-61); Prolactin 25.9 ng/mL
== END | disposition home or self-care (01) ==
LOC: LAB 07:34
PROVIDERS: PCP Family Medicine; Referring Provider Psychiatry & Neurology Psychiatry; Visit Provider Psychiatry & Neurology Psychiatry
DX: Z79.899 Other long term (current) drug therapy (principal)
CPT/HCPCS: 36415; 80164; 82140; 84146; 84450; 84460; 85049

== ENCOUNTER → 2022-11-17 | Outpatient (CLI) | payer MEDICARE, MEDICAID, SELFPAY ==
[2022-11-17 18:19] LABS: ALB/GLOB Ratio 0.9 RATIO (0.9-2.4); AST(SGOT) 12 U/L (15-37); Alanine Aminotransfer ALT/SGPT 26 U/L (16-61); Albumin, Serum 3.3 g/dL (3.2-5.0); Alkaline Phosphatase 57 U/L (45-117); Anion Gap 6 (5-15); BUN 6 mg/dL (7-18); Calcium,Total 8.8 mg/dL (8.5-10.1); Chloride 101 mmol/L (98-107); Cholesterol 115 mg/dL (200); Creatinine, Serum 0.75 mg/dL (0.70-1.30); EST Glomerular Filtration Rate 115 mL/min (>60); Est Glom Filt Rate - Afr Amer 139 mL/min (>60); Free T3 2.1 pg/mL (2.18-3.98); Globulin 3.7 g/dL (2.2-4.2); Glucose 96 mg/dL (74-106); High Density Lipoprotein 55 mg/dL; Microalbumin,Random Urine < 5.0 mg/L (NO RANGE EST.); Potassium 4.1 mmol/L (3.5-5.1); Sodium Level 134 mmol/L (136-145); T4 Free Direct 0.96 ng/dL (0.76-1.46); Thyroid Stim Hormone (TSH) 0.73 uIU/mL (0.358-3.74); Triglycerides 143 mg/dL; Very Low Density Lipoprotein 29 mg/dL (5-40)
== END | disposition home or self-care (01) ==
LOC: MTLAB 14:30
PROVIDERS: PCP Family Medicine; Referring Provider Family Medicine; Visit Provider Family Medicine
DX: E03.9 Hypothyroidism, unspecified (principal); E11.9 Type 2 diabetes mellitus without complications
CPT/HCPCS: 36415; 80053; 80061; 82043; 82570; 84439; 84443; 84481

== ENCOUNTER → 2022-12-23 | Outpatient (CLI) | payer MEDICARE, MEDICAID, SELFPAY ==
[2022-12-23 07:49] LABS: Hematocrit 40.6 % (40-54); Hemoglobin 14.3 g/dL (13.0-16.5); Mean Corp Hgb Conc 35.2 g/dL (32-36); Mean Corpuscular Volume 76.7 fL (80-94); Mean Platelet Vol. 9.6 fl (6.2-12.0); Platelet Count 245 K/mm3 (150-450); RBC Distribution Width CV 14.2 % (11.6-14.6); RBC Distribution Width SD 39.1 fl (35.1-43.9); Red Blood Count 5.29 M/mm3 (4.6-6.2); White Blood Count 4.3 K/mm3 (4.4-11.0)
[2022-12-23 08:16] LABS: Valproic Acid (Depakene) Level 84 ug/mL (50-100)
[2022-12-23 08:37] LABS: AST(SGOT) 16 U/L (15-37); Alanine Aminotransfer ALT/SGPT 34 U/L (16-61); Albumin, Serum 3.6 g/dL (3.2-5.0); Alkaline Phosphatase 59 U/L (45-117); Anion Gap 4 (5-15); BUN 8 mg/dL (7-18); BUN/Creat Ratio 9.1 RATIO (10-20); Calcium,Total 9.2 mg/dL (8.5-10.1); Chloride 100 mmol/L (98-107); Creatinine, Serum 0.88 mg/dL (0.70-1.30); EST Glomerular Filtration Rate 95 mL/min (>60); Est Glom Filt Rate - Afr Amer 115 mL/min (>60); Globulin 3.7 g/dL (2.2-4.2); Glucose 105 mg/dL (74-106); Potassium 4.6 mmol/L (3.5-5.1); Protein, Total 7.3 g/dL (6.4-8.2); Sodium Level 131 mmol/L (136-145)
== END | disposition home or self-care (01) ==
LOC: LAB 07:24
PROVIDERS: PCP Family Medicine; Referring Provider Psychiatry & Neurology Psychiatry; Visit Provider Psychiatry & Neurology Psychiatry
DX: Z79.899 Other long term (current) drug therapy (principal)
CPT/HCPCS: 36415; 80053; 80164; 82140; 85027

== ENCOUNTER → 2023-06-02 | Outpatient (CLI) | payer MEDICARE, MEDICAID, SELFPAY ==
[2023-06-02 13:15] LABS: ALB/GLOB Ratio 0.9 RATIO (0.9-2.4); AST(SGOT) 13 U/L (15-37); Alanine Aminotransfer ALT/SGPT 22 U/L (16-61); Albumin, Serum 3.4 g/dL (3.2-5.0); Alkaline Phosphatase 55 U/L (45-117); Anion Gap 3 (5-15); BUN 8 mg/dL (7-18); BUN/Creat Ratio 8.9 RATIO (10-20); Calcium,Total 9.2 mg/dL (8.5-10.1); Chloride 103 mmol/L (98-107); Cholesterol 123 mg/dL (200); EST Glomerular Filtration Rate 93 mL/min (>60); Est Glom Filt Rate - Afr Amer 112 mL/min (>60); Free T3 2.2 pg/mL (2.18-3.98); Globulin 3.6 g/dL (2.2-4.2); Glucose 84 mg/dL (74-106); High Density Lipoprotein 54 mg/dL; Potassium 4.5 mmol/L (3.5-5.1); Sodium Level 135 mmol/L (136-145); T4 Free Direct 0.87 ng/dL (0.76-1.46); Thyroid Stim Hormone (TSH) 1.11 uIU/mL (0.358-3.74); Triglycerides 112 mg/dL; Very Low Density Lipoprotein 22 mg/dL (5-40)
== END | disposition home or self-care (01) ==
LOC: MFPLAB 10:36
PROVIDERS: PCP Family Medicine; Visit Provider Family Medicine
DX: E03.9 Hypothyroidism, unspecified (principal); R03.0 Elevated blood-pressure reading, without diagnosis of hypertension
CPT/HCPCS: 36415; 80053; 80061; 84439; 84443; 84481

== ENCOUNTER → 2023-06-15 | Outpatient (CLI) | payer MEDICARE, MEDICAID, SELFPAY ==
[2023-06-15 07:52] LABS: Hematocrit 39.6 % (40-54); Hemoglobin 13.8 g/dL (13.0-16.5); Mean Corp Hgb Conc 34.8 g/dL (32-36); Mean Corpuscular Hgb 26.6 pg (27.0-32.0); Mean Corpuscular Volume 76.4 fL (80-94); Mean Platelet Vol. 10.4 fl (6.2-12.0); Platelet Count 256 K/mm3 (150-450); RBC Distribution Width CV 13.9 % (11.6-14.6); RBC Distribution Width SD 38.2 fl (35.1-43.9); Red Blood Count 5.18 M/mm3 (4.6-6.2); White Blood Count 3.9 K/mm3 (4.4-11.0)
[2023-06-15 08:21] LABS: ALB/GLOB Ratio 0.8 RATIO (0.9-2.4); AST(SGOT) 36 U/L (15-37); Alanine Aminotransfer ALT/SGPT 48 U/L (16-61); Albumin, Serum 3.3 g/dL (3.2-5.0); Alkaline Phosphatase 63 U/L (45-117); Anion Gap 4 (5-15); BUN 8 mg/dL (7-18); BUN/Creat Ratio 9.4 RATIO (10-20); Calcium,Total 8.9 mg/dL (8.5-10.1); Chloride 101 mmol/L (98-107); Creatinine, Serum 0.85 mg/dL (0.70-1.30); EST Glomerular Filtration Rate 99 mL/min (>60); Est Glom Filt Rate - Afr Amer 120 mL/min (>60); Globulin 4.1 g/dL (2.2-4.2); Glucose 106 mg/dL (74-106); Potassium 4.2 mmol/L (3.5-5.1); Protein, Total 7.4 g/dL (6.4-8.2); Sodium Level 134 mmol/L (136-145)
[2023-06-15 08:58] LABS: Valproic Acid (Depakene) Level 66 ug/mL (50-100)
== END | disposition home or self-care (01) ==
PROVIDERS: PCP Family Medicine; Referring Provider Psychiatry & Neurology Psychiatry; Visit Provider Psychiatry & Neurology Psychiatry
DX: Z79.899 Other long term (current) drug therapy (principal)
CPT/HCPCS: 36415; 80053; 80164; 82140; 85027

== ENCOUNTER → 2024-01-24 | Outpatient (CLI) | payer MEDICARE, MEDICAID, SELFPAY ==
[2024-01-24 08:46] LABS: Bacteria 0 SEEN /hpf (None Seen); Mucous, Urine 0 SEEN /hpf (<or=2+)
[2024-01-24 10:19] LABS: Color, Urine Yellow (Yellow); Glucose, Dipstick Normal (Normal); Ketone-Dipstick Negative (Negative); Leukocyte Esterase-Dipstick 25 /ul (Negative); Nitrite-Dipstick Negative (Negative); Occult Blood-Urine Negative /ul (Negative); Protein-Dipstick Negative (Negative); Specific Gravity, Urine 1.005 (1.002-1.030); Urine Bilirubin Dipstick Negative (Negative); Urine Clarity Sl. Cloudy (Clear); Urine Urobilinogen Normal (Normal)
[2024-01-24 10:26] LABS: Red Blood Cells-Urine 0 SEEN /hpf (0-5); Squamous Epithelial Cells - UA 0-5 SEEN /hpf (0-5); White Blood Cells 0-5 SEEN /hpf (0-5)
== END | disposition home or self-care (01) ==
LOC: MTLAB 08:42
PROVIDERS: PCP Family Medicine; Referring Provider Family Medicine; Visit Provider Family Medicine
DX: R41.89 Other symptoms and signs involving cognitive functions and awareness (principal)
CPT/HCPCS: 81001; 87077; 87086; 87088; 87186

== ENCOUNTER → 2024-06-13 | Outpatient (CLI) | payer MEDICARE, MEDICAID, SELFPAY ==
[2024-06-13 11:34] LABS: Microalbumin,Random Urine 18.8 mg/L (NO RANGE EST.); Microalbumin:Creatinine Ratio 262.2 mg/g CRE
[2024-06-13 11:47] LABS: ALB/GLOB Ratio 1.5 RATIO (0.9-2.4); AST(SGOT) 21 U/L (<=37); Alanine Aminotransfer ALT/SGPT 16 U/L (<=46); Alkaline Phosphatase 58 U/L (40-129); Anion Gap 11 (5-15); BUN 4 mg/dL (4-19); Calcium,Total 9.5 mg/dL (7.6-11.0); Carbon Dioxide 23.3 mmol/L (21.0-32.0); Chloride 98 mmol/L (98-108); Cholesterol 124 mg/dL (<=200); Creatinine, Serum 0.86 mg/dL (0.70-1.20); EST Glomerular Filtration Rate 101 (>60); Free T3 2.5 pg/mL (2.18-3.98); Globulin 2.7 g/dL (2.2-4.2); Glucose 96 mg/dL (70-99); High Density Lipoprotein 54 mg/dL; Low Density Lipoprotein Calc. 56 mg/dL; Potassium 4.8 mmol/L (3.3-5.1); Protein, Total 6.7 g/dL (5.9-8.4); Sodium Level 133 mmol/L (133-145); Thyroid Stim Hormone (TSH) 0.856 uIU/mL (0.300-4.200); Total Bilirubin 0.31 mg/dL (0.00-1.30); Triglycerides 71 mg/dL; Very Low Density Lipoprotein 14 mg/dL (5-40); cholesterol:hdl ratio screen 2.32
== END | disposition home or self-care (01) ==
LOC: MTLAB 08:45
PROVIDERS: PCP Family Medicine; Referring Provider Family Medicine; Visit Provider Family Medicine
DX: E03.9 Hypothyroidism, unspecified (principal); E11.9 Type 2 diabetes mellitus without complications; Z79.4 Long term (current) use of insulin
CPT/HCPCS: 36415; 80053; 80061; 82043; 82570; 84439; 84443; 84481

== ENCOUNTER → 2024-11-06 | Outpatient (CLI) | payer MEDICARE, MEDICAID, SELFPAY ==
[2024-11-06 10:34] LABS: Ammonia 54.5 umol/L (16-60)
[2024-11-06 10:48] LABS: Hematocrit 35.4 % (40-54); Hemoglobin 13.1 g/dL (13.0-16.5); Immature Granulocytes Count 0.000 X10^3/uL (0.0-0.0); Mean Corp Hgb Conc 37.0 g/dL (32-36); Mean Corpuscular Volume 74.4 fL (80-94); Mean Platelet Vol. 10.2 fl (6.2-12.0); Platelet Count 225 K/mm3 (150-450); RBC Distribution Width CV 14.2 % (11.6-14.6); RBC Distribution Width SD 38.2 fl (35.1-43.9); Red Blood Count 4.76 M/mm3 (4.6-6.2); White Blood Count 3.5 K/mm3 (4.4-11.0)
[2024-11-06 10:49] LABS: NRBC Flagged by Analyzer 0 % (0-5)
[2024-11-06 10:57] LABS: Valproic Acid (Depakene) Level 66 ug/mL (50-100)
[2024-11-06 11:01] LABS: AST(SGOT) 20 U/L (<=37); Alanine Aminotransfer ALT/SGPT 18 U/L (<=46); Albumin, Serum 4.2 g/dL (3.5-5.0); Alkaline Phosphatase 54 U/L (40-129); Anion Gap 10 (5-15); BUN 5 mg/dL (4-19); BUN/Creat Ratio 6.4 RATIO (10-20); Calcium,Total 9.3 mg/dL (7.6-11.0); Carbon Dioxide 23.5 mmol/L (21.0-32.0); Chloride 98 mmol/L (98-108); Globulin 2.4 g/dL (2.2-4.2); Glucose 104 mg/dL (70-99); Potassium 4.5 mmol/L (3.3-5.1)
--- OUTSIDE RECORDS SUMMARY | 2024-11-07 22:12 | XMS RPT_ITS | CCD ---
Demographics Address [facility] [address] [place] [address] Preferred Language en Marital Status Buddhist Affiliation Unknown Race Black or Asmita rican Ethnic Group Not or Lati no Author Organization [facility] Care Team Providers Care Inspector And Unloader Name Role Phone [facility], Sola Dillon Primary Care Pro vider Candida, Dr. Lee Villalobos Attending Provider Jayant Joy Referring Provider Unavailable Juwan, Dr. Saba Primary Care Provider Cebuzion, Dr. Lee Villalobos Referring Provider Cecrista, Dr. Lee Villalobos Other Provider JAYANT JOY Primary Care Unavailable Juwan ZAMORA, Jayant Love Primary Care Provider Juwan ZAMORA, Dr. Saba Primary Care Provider [phone] Juwan ZAMORA, Dr. Saba Referring Provider Lacey ZAMORA, Dr. Freeman Attending Provider Juwan ZAMORA, Dr. Saba Attending Provider [phone] Jayant Joy Primary Care Unavailable Pete Rahman Attending Unavailable Juwan, Jayant Referring Unavailable Juwan, Jayant Primary Care Unavailable Jayant Joy Referring Unavailable Juwan, Jayant Attending Unavailable Juwan, Jayant Attending Unavailable Juwan, Jayant Primary Care Unavailable Jayant Joy Referring Unavailable Allergies Allergy Classification Reported Allergen(s) Allergy Type Date of Onset Reaction(s) Facility (2 sources) Bee/Wasp/Ant venom Propensity to adverse reactions 0 Unknown, SORENESS [facility] Work Phone: (9 sources) Penicillins; Translations: [PENICILLINS] Allergy to substance 7 Other: See Comments [facility] (6 sources) Pollen Propensity to adverse reactions 0 Unknown [facility] (4 sources) bee venom protein (honey bee) Propensity to adverse reactions 2 Other [facility] Comment on above: SORENESS (1 source) Pollen Drug allergy (disorder) 5 [facility] Repository (1 source) bee venom protein (honey bee) Drug allergy (disorder) 5 [facility] Repository Medications Current Medications Medication Drug Class(es) Dates Sig (Normalized) Sig (Original) acetaminophen 500 mg oral tablet (2 sources) Start: 08-29-2022 take 2 tablets by mouth every eight hours as needed acetaminophen (TYLENOL EXTRA STRENGTH) 500 mg tablet Take 2 tablets by mouth every 8 hours as needed for pain. 15 tablet 0 08/29/2022 Active Start: 04-05-2005 TYLENOL EXTRA STRENGTH 500 MG TAB Take two(2) tablets every four(4) to six(6) hours as needed. 1 bottle 0 04/05/2005 Active Comment on above: Take 2 tablets by mo uth every 8 hours as needed for pain. Take two(2) tablets every four(4) to six(6) hours as needed. [id number] 200 actuat albuterol 0.09 mg/actuat metered dose inhaler (10 sources) beta2-Adrenergic Agonist Start: 03-27-2024 Albuterol Sulfate 90 mcg/actuation HFA aerosol inhaler Active 2 NMA INHALATION EVERY 4-6 HOURS as needed March 27, 2024 1:00am Start: 09-21-2020 take 1 puff(s) by in halation every four hours as needed Albuterol Sulfate (Ventolin Hfa) 1 INHALER inhaler Active 1 - 2 PUFF INHALATION EVERY 4 HOURS NEEDED September 21, 2020 12:00am Start: 05-01-2019 take 1 puff(s) by in halation every six hours Albuterol Sulfate (Proair Hfa) 90 mcg/actuation HFA aerosol inhaler Active 2 PUFF INHALATION EVERY 6 HOURS May 01, 2019 9:25am Start: 05-02-2017 End: 05-01-2019 Albuterol Sulfate (Proair Hf a) 90 mcg/actuation HFA aerosol inhaler Discontinued 2 NMA INHALATION EVERY 6 HOURS May 02, 2017 12:00am May 01, 2019 9:29am Start: 05-02-2017 End: 05-01-2019 take 1 puff(s) by inhalation every six hours Albuterol Sulfate (Proair Hfa) 90 mcg/actuation HFA aerosol inhaler Discontinued 2 PUFF INHALATION EVERY 6 HOURS May 02, 2017 12:00am May 01, 2019 9:29am Start: 11-08-2010 take 2 puff(s) by in halation every four hours as needed albuterol HFA (PROVENTIL HFA) 90 mcg/Actuation INHALATION inhaler Inhale 2 Puffs as instructed every 4 hours as needed. 1 Inhaler 0 11/08/2010 Active Comment on above: Inhale 2 Puffs as in structed every 4 hours as needed. aspirin 81 mg chewable tablet (7 sources) Platelet Aggregation Inhibitor, Nonsteroidal Anti-inflammatory Drug Start: 4 take 1 tablet by mouth once daily Aspirin 81 MG tablet,chewable Active 81 mg PO DAILY@0800 May 05, 2013 12:00am Comment on above: Take 81 mg by mouth once daily. benztropine mesylate 1 mg oral tablet (19 sources) Anticholinergic, Antihistamine Start: 5 take 1 tablet by mouth three times daily Benztropine 1 mg tablet Active 1 mg PO THREE TIMES A DAY March 27, 2024 9:21am Start: 08-26-2021 End: 03-27-2024 take 1 tablet by mouth once daily Benztropine 1 mg Tablet Discontinued 1 mg PO DAILY August 26, 2021 12:00am March 27, 2024 9:25am Start: 08-13-2019 End: 07-27-2021 take 1 tablet by mouth at breakfast Benztropine 1 MG tablet Discontinued 1 mg PO WITH BREAKFAST August 13, 2019 12:00am July 27, 2021 1:51pm Start: 05-05-2013 End: 05-01-2019 take 1 mg by mouth three times daily Benztropine 2 MG tablet Discontinued 1 mg PO THREE TIMES A DAY May 05, 2013 12:00am May 01, 2019 9:24am Start: 05-05-2013 End: 05-01-2019 take 1 mg by mouth three times daily Benztropine Discontinued 1 MG PO THREE TIMES A DAY May 05, 2013 12:00am May 01, 2019 9:24am Start: 06-09-2006 End: 07-27-2021 take 1 mg by mouth at breakfast Benztropine Discontinu ed 1 MG PO WITH BREAKFAST August 13, 2019 12:00am July 27, 2021 1:51pm Comment on above: Take one(1) tablet t wo(2) times daily. cholecalciferol 0.025 mg oral tablet (7 sources) Vitamin D Start: 04-17-19 take 3 tablets by mouth once daily in the morning Cholecalciferol (Vitamin D3) 1,000 UNIT tablet Active 3000 U PO DAILY April 17, 2019 12:00am takes in the morning Start: 04-17-2019 take 3000 [IU] by mo uth once daily in the morning Cholecalciferol (Vitamin D3) Active 3000 UNIT PO DAILY April 17, 2019 12:00am takes in the morning Cholecalciferol, Vitamin D3, (VITAMIN D-3) 2,000 unit cap Take by mouth. 0 Active Comment on above: Take by mouth. docusate sodium 100 mg oral capsule (12 sources) Start: 08-26-2021 take 1 capsule by mouth once daily Docusate Sodium 100 mg Capsule Active 100 mg PO DAILY August 26, 2021 12:00am Start: 02-01-2010 End: 05-01-2019 take 1 capsule by mouth once daily Docusate Sodium 100 MG capsule Discontinued 100 mg PO DAILY May 05, 2013 12:00am May 01, 2019 9:46am Comment on above: Take one(1) tablet d aily. May increase t twice daily if needed to prevent constipation [id number] 0.3 ml EPINEPHrine 1 mg/ml auto-injector (2 sources) alpha-Adrenergic Agonist, beta-Adrenergic Agonist, Catecholamine Start: 03-27-2024 Epinephrine 0.3 mg/0.3 mL auto-injector Active 0.3 mg IM every 5 to 15 minutes as needed March 27, 2024 1:00am do not exceed 3 doses per episode Start: 05-01-2019 Epinephrine (E pipen) 0.3 mg/0.3 mL auto-injector Active 0.3 MG IM ONCE May 01, 2019 12:00am as a single dose fluPHENAZine decanoate 25 mg/ml injectable solution (8 sources) Phenothiazine Start: 03-27-2024 inject 25 mg by intramuscular injection every other week Fluphenazine Decanoate 25 mg/mL solution Active 25 mg IM every 2 weeks March 27, 2024 1:00am Start: 04-17-2019 End: 07-27-2021 Fluphenazine Decanoate 25 MG /ML solution Discontinued 25 mg IJ DIRECTED April 17, 2019 12:00am July 27, 2021 1:51pm Start: 04-17-2019 End: 07-27-2021 Fluphenazine Decanoate Disco ntinued 25 MG IJ DIRECTED April 17, 2019 12:00am July 27, 2021 1:51pm Start: 06-09-2006 fluphenazine d econoate 25 mg/mL INJECTION Soln every two(2) weeks (tcc) 0 06/09/2006 Active Comment on above: every two(2) weeks ( tcc) fluticasone propionate 0.05 mg/actuat metered dose nasal spray (5 sources) Corticosteroid Start: 5 take 50 ug nasal route once daily Fluticasone Propionate (Allergy Relief (Fluticasone)) 50 mcg/actuation spray,suspension Active 2 NMA INTRANASAL daily March 27, 2024 1:00am administer into each nostril Start: 05-02-2017 take 1 puff(s) by in halation twice daily Fluticasone Propionate (Flovent Hfa) 220 mcg/actuation HFA aerosol inhaler Active 1 PUFF INHALATION TWICE A DAY May 02, 2017 12:00am Start: 03-07-2016 FLOVENT HFA 22 0 mcg/actuation inhaler Start: 05-05-2013 Fluticasone Pr opionate Active 2 SPRAY NASAL DAILY May 05, 2013 12:00am takes in the morning Start: 01-04-2010 fluticasone (F LONASE) 50 mcg/Actuation NASAL nasal spray Indications: Allergic rhinitis, cause unspecified Two sprays each nostril once daily for allergy symptoms. 1 Bottle 11 01/04/2010 Active Comment on above: Two sprays each nost ril once daily for allergy symptoms. Fluticasone Propionate (Flovent Hfa) 220 mcg/actuation HFA aerosol inhaler (1 source) Start: 03-27-2024 Fluticasone Propionate (Flovent Hfa) 220 mcg/actuation HFA aerosol inhaler Active 1 NMA INHALATION TWICE A DAY March 27, 2024 1:00am 12 hr guaiFENesin 600 mg extended release oral tablet (1 source) Start: 08-29-2022 take 1 tablet by mouth twice daily guaiFENesin (MUCINEX) 600 mg 12 hr tablet Take 1 tablet by mouth twice daily. 12 tablet 0 08/29/2022 Active Start: 08-29-2022 take 1 tablet by david th twice daily guaiFENesin (MUCINEX) 600 mg 12 hr tablet Take 1 tablet by mouth twice daily. 12 tablet 0 08/29/2022 Active Comment on above: Take 1 tablet by david th twice daily. hydrocortisone 25 mg/ml topical cream (8 sources) Corticosteroid Start: 03-27-2024 Hydrocortisone (Procto-Med Hc) 2.5 % cream with perineal applicator Active 1 NMA RC THREE TIMES A DAY as needed March 27, 2024 1:00am Start: 04-17-2019 End: 07-27-2021 Hydrocortisone 2.5% cream wi th perineal applicator Discontinued 1 NMA TP TWICE A DAY April 17, 2019 12:00am July 27, 2021 1:52pm Start: 04-17-2019 End: 07-27-2021 Hydrocortisone Discontinued 1 APPLIC TP TWICE A DAY April 17, 2019 12:00am July 27, 2021 1:52pm Start: 01-26-2016 PROCTOSOL HC 2 .5 % rectal cream levothyroxine sodium 0.088 mg oral tablet (10 sources) l-Thyroxine Start: 03-27-2024 take 1 tablet by mouth once daily Levothyroxine 88 mcg tablet Active 88 ug PO daily March 27, 2024 1:00am Start: 08-14-2019 take 88 ug by mouth once daily Levothyroxine Active 88 MCG PO DAILY@0600 90 August 14, 2019 12:00am Start: 05-05-2013 End: 08-14-2019 take 1 tablet by mouth once daily in the morning Levothyroxine 112 MCG tablet Discontinued 112 ug PO DAILY May 05, 2013 12:00am August 14, 2019 2:34pm takes in the morning Start: 12-18-2008 levothyroxine sodium(SYNTHROID 75 MCG TAB) Indications: Unspecified hypothyroidism Take one(1) tablet daily. 30 11 12/18/2008 Active Comment on above: Take one(1) tablet d aily. lisinopril 5 mg oral tablet (7 sources) Angiotensin Converting Enzyme Inhibitor Start: 4 take 1 tablet by mouth once daily in the morning Lisinopril 5 MG tablet Active 5 mg PO DAILY May 05, 2013 12:00am takes in the morning metFORMIN hydrochloride 1000 mg oral tablet (18 sources) Biguanide Start: 0 take 1 tablet by mouth twice daily in the morning Metformin 1,000 mg tablet Active 1000 mg PO TWICE A DAY May 01, 2019 12:00am takes in the morning Start: 05-01-2019 take 500 mg by mouth once daily in the morning Metformin Active 500 MG PO DAILY May 01, 2019 12:00am takes in the morning Start: 04-17-2019 End: 05-01-2019 take 2 tablets by mouth once daily Metformin 500 MG tablet Discontinued 1000 mg PO DAILY April 17, 2019 12:00am May 01, 2019 9:27am Start: 04-17-2019 End: 05-01-2019 take 1000 mg by mouth once daily Metformin Discontinue d 1000 MG PO DAILY April 17, 2019 12:00am May 01, 2019 9:27am Start: 05-05-2013 End: 05-02-2017 take 1 tablet by mouth twice daily at mealtime Metformin 500 MG tablet Discontinued 500 mg PO TWICE DAILY WITH MEALS May 05, 2013 12:00am May 02, 2017 2:17pm omeprazole 20 mg delayed release oral capsule (5 sources) Proton Pump Inhibitor Start: 07-27-2021 take 1 capsule by mouth once daily Omeprazole 20 mg capsule,delayed release(DR/EC) Active 20 mg PO DAILY July 27, 2021 12:00am polyethylene glycol 3350 82005 mg powder for oral solution (3 sources) Osmotic Laxative Start: 03-27-2024 take 17 g by mouth once daily as needed Polyethylene Glycol 3350 17 gram powder in packet Active 17 g PO daily as needed March 27, 2024 1:00am Start: 05-05-2013 polyethylene g lycol 3350 (MIRALAX, GLYCOLAX) 17 gram/dose powder propranolol hydrochloride 20 mg oral tablet (13 sources) beta-Adrenergic Melina Start: 08-26-2021 take 1 tablet by mouth twice daily Propranolol 20 mg Tablet Active 20 mg PO TWICE A DAY August 26, 2021 12:00am Start: 05-05-2013 End: 06-21-2022 take 1 tablet by mouth twice daily Propranolol 20 MG tablet Discontinued 20 mg PO TWICE A DAY May 05, 2013 12:00am July 27, 2021 1:50pm Start: 12-18-2008 take 1 tablet by david th three times daily PROPRANOLOL 10 MG TAB one tablet po three times daily 90 6 12/18/2008 Active Comment on above: one tablet po three times daily QUEtiapine 300 mg oral tablet (13 sources) Atypical Antipsychotic Start: 7 take 1 tablet by mouth at bedtime Quetiapine (Seroquel) 300 mg Tablet Active 300 mg PO AT BEDTIME August 26, 2021 12:00am Start: 05-05-2013 End: 07-27-2021 take 1 tablet by mouth every twenty-four hours at bedtime Quetiapine 300 MG tablet extended release 24 hr Discontinued 300 mg PO AT BEDTIME May 05, 2013 12:00am July 27, 2021 1:50pm Start: 12-18-2006 take 2 tablets by mo ut twice daily quetiapine (SEROQUEL) 100 mg ORAL Tab Indications: Bipolar I disorder, most recent episode (or current) manic, severe, specified as with psychotic behavior 200 mg twice daily 0 12/18/2006 Active Comment on above: 200 mg twice daily rosuvastatin calcium 10 mg oral tablet (7 sources) HMG-CoA Reductase Inhibitor Start: 1 take 1 tablet by mouth at bedtime Rosuvastatin 10 MG tablet Active 10 mg PO AT BEDTIME May 05, 2013 12:00am Comment on above: Take 1 tablet by david th daily at bedtime. sertraline 100 mg oral tablet (9 sources) Serotonin Reuptake Inhibitor Start: Sertraline 100 mg tablet Active 150 mg PO DAILY March 27, 2024 9:23am takes in the morning Start: 06-09-2006 End: 03-27-2024 take 1 tablet by mouth once daily in the morning Sertraline 100 MG tablet Discontinued 100 mg PO DAILY May 05, 2013 12:00am March 27, 2024 9:25am takes in the morning Start: 06-09-2006 take 1 tablet by david th once daily sertraline (ZOLOFT) 50 mg ORAL Tab Take one(1) tablet daily. 0 06/09/2006 Active Comment on above: Take one(1) tablet d aily. sucralfate 1000 mg oral tablet (6 sources) Aluminum Complex Start: 03-27-2024 take 1 tablet by mouth four times daily Sucralfate 1 gram tablet Active 1 g PO .QID March 27, 2024 9:22am Start: 08-26-2021 End: 03-27-2024 take 1 tablet by mouth twice daily Sucralfate 1 gram Tablet Discontinued 1 g PO TWICE A DAY August 26, 2021 12:00am March 27, 2024 9:25am divalproex sodium 500 mg delayed release oral tablet (20 sources) Mood Stabilizer, Anti-epileptic Agent Start: 03-27-2024 take 1 tablet by mouth at bedtime Divalproex 500 mg tablet,delayed release (DR/EC) Active 500 mg PO AT BEDTIME March 27, 2024 9:22am Start: 08-26-2021 End: 03-27-2024 take 2 tablets by mouth at bedtime Divalproex 500 mg Tablet,Delayed Release (Dr/Ec) Discontinued 1000 mg PO AT BEDTIME August 26, 2021 12:00am March 27, 2024 9:25am Start: 08-26-2021 take 1000 mg by mout h at bedtime Divalproex Active 1000 MG PO AT BEDTIME August 26, 2021 12:00am Start: 03-09-2016 End: 07-27-2021 take 1 tablet by mouth at bedtime Divalproex Sodium (Divalproex Sodium Er) 500 MG Tab.Er.24h Discontinued 500 mg PO AT BEDTIME April 17, 2019 12:00am May 01, 2019 9:37am Start: 03-09-2016 divalproex ER (DEPAKOTE ER) 250 mg 24 hr tablet Start: 05-05-2013 End: 05-01-2019 take 1 tablet by mouth at bedtime Divalproex 250 MG tablet Discontinued 250 mg PO AT BEDTIME May 05, 2013 12:00am May 01, 2019 9:38am Start: 12-25-2008 divalproex sod ium(DEPAKOTE 500 MG TAB) Indications: Generalized convulsive epilepsy without mention of intractable epilepsy 1 tablets twice daily 60 11 12/25/2008 Active Comment on above: 1 tablets twice odalis y vitamin e 180 mg oral capsule (8 sources) Start: 03-27-2024 Vitamin E Mixed 400 unit capsule Active 400 U PO daily March 27, 2024 1:00am Start: 05-05-2013 End: 05-01-2019 Vitamin E (Dl, Acetate) 400 UNITS capsule Discontinued 400 U PO DAILY May 05, 2013 12:00am May 01, 2019 9:46am Start: 12-15-2008 VITAMIN E 400 UNIT CAP soft gel one capusule daily 0 0 12/15/2008 Active Comment on above: soft gel one capusul e daily Completed/Discontinued Medications Medication Drug Class(es) Dates Sig (Normalized) Sig (Original) cefuroxime 250 mg oral tablet (6 sources) Cephalosporin Antibacterial Start: 04-17-2019 End: 05-01-2019 take 1 tablet by mouth twice daily Cefuroxime Axetil (Cefuroxime) 250 MG tablet Discontinued 250 mg PO TWICE A DAY April 17, 2019 12:00am May 01, 2019 9:45am clarithromycin 500 mg oral tablet (1 source) Macrolide Antimicrobial Start: 11-08-2010 take 1 tablet by mouth every twelve hours clarithromycin (BIAXIN) 500 mg ORAL Tab Take 1 tablet by mouth every 12 hours. 20 tablet 0 11/08/2010 Active Comment on above: Take 1 tablet by david th every 12 hours. COMPOUNDED PRESCRIPTION (1 source) Start: 08-26-2005 COMPOUNDED PRESCRIPTION Prevail Incontinent Product -diaper dx. incontinence 300 0 08/26/2005 Active Comment on above: Prevail Incontinent Product -diaper dx. incontinence diaper,brief,adult,d isposable(ADULT BRIEFS - LARGE) (1 source) Start: 06-10-2009 diaper,brief,adult, disposable(ADULT BRIEFS - LARGE) Indications: Unspecified urinary incontinence , Incontinence of feces as needed usually 5 daily/ urinary incontinence DX: 788.30/434.91 160 12 06/10/2009 Active Comment on above: as needed usually 5 daily/ urinary incontinence DX: 788.30/434.91 doxycycline monohydrate 100 mg oral capsule (6 sources) Tetracycline-class Drug Start: 09-21-2020 End: 07-27-2021 take 1 capsule by mouth twice daily Doxycycline Monohydrate 100 mg capsule Discontinued 100 mg PO TWICE A DAY September 21, 2020 12:00am July 27, 2021 1:51pm loratadine 10 mg oral tablet (6 sources) Start: 05-01-2019 End: 07-27-2021 take 1 tablet by mouth once daily Loratadine 10 mg tablet Discontinued 10 mg PO DAILY May 01, 2019 12:00am July 27, 2021 1:52pm takes at night LORazepam 0.5 mg oral tablet (7 sources) Benzodiazepine Start: 05-05-2013 End: 05-02-2017 Lorazepam 0.5 MG tablet Discontinued 0.5 mg DAILY May 05, 2013 12:00am May 02, 2017 2:16pm Start: 06-20-2007 LORAZEPAM 0.5 MG TAB Take one(1) tablet three times daily and may repeat as needed for anxiety. 0 06/20/2007 Active Comment on above: Take one(1) tablet t hree times daily and may repeat as needed for anxiety. phenytoin sodium 100 mg extended release oral capsule (7 sources) Anti-epileptic Agent Start: 11-05-2010 End: 07-27-2021 take 1 capsule by mouth three times daily Phenytoin Sodium Extended 100 mg capsule Discontinued 100 mg PO THREE TIMES A DAY May 01, 2019 12:00am July 27, 2021 1:52pm Comment on above: Take 1 capsule by [facility] three times daily. predniSONE 20 mg oral tablet (6 sources) Start: 09-21-2020 End: 07-27-2021 take 2 tablets by mouth once daily Prednisone 20 mg tablet Discontinued 40 mg PO DAILY September 21, 2020 12:00am July 27, 2021 1:50pm Start: 09-21-2020 End: 07-27-2021 take 40 mg by mouth once daily Prednisone Discontinued 40 MG PO DAILY September 21, 2020 12:00am July 27, 2021 1:50pm Problems Active Problems Problem Classification Problem Date Documented Da te Episodic/Chronic Asthma (1 source) Unspecified asthma, uncomplicated; Translations: [Asthma, unspecified type, unspecified] 10-20-2004 Chronic Cardiac dysrhythmias (6 sources) Supraventricular tachycardia; Translations: [Supraventricular tachycardia] 08-13-2019 Chronic Chronic obstructive pulmonary disease and bronchiectasis (6 sources) Bronchitis; Translations: [Bronchitis, not specified as acute or chronic] 09-21-2020 Episodic Coronary atherosclerosis and other heart disease (6 sources) Coronary atherosclerosis; Translations: [Atherosclerotic heart disease of [place] coronary artery without angina pectoris] 08-13-2019 Chronic Developmental disorders (1 source) Intellectual disability; Translations: [Unspecified intellectual disabilities] 10-20-2004 Chronic Disorders of lipid metabolism (7 sources) Hyperlipidemia; Translations: [Hyperlipidemia, unspecified] Onset: 8 04-11-2007 Chronic Epilepsy; convulsions (1 source) Generalized convulsive epilepsy; Translations: [Generalized idiopathic epilepsy and epileptic syndromes, not intractable, without status epilepticus] Onset: 5 10-21-2004 Chronic Esophageal disorders (1 source) Gastroesophageal reflux disease; Translations: [Gastro-esophageal reflux disease without esophagitis] 10-20-2004 Chronic Esophageal disorders (7 sources) Zenker's diverticulum; Translations: [Diverticulum of esophagus, acquired] Episodic Essential hypertension (6 sources) Essential hypertension; Translations: [Essential (primary) hypertension] 08-13-2019 Chronic Headache; including migraine (1 source) Migraine without aura; Translations: [Migraine without aura, not intractable, without status migrainosus] Onset: 6 04-05-2005 Chronic Mood disorders (1 source) Bipolar I disorder; Translations: [Bipolar disorder, unspecified] 10-14-2008 Chronic Nonspecific chest pain (6 sources) Chest pain; Translations: [Chest pain, unspecified] 08-13-2019 Episodic Other and unspecified benign neoplasm (5 sources) History of polyp of colon; Translations: [Personal history of colonic polyps] 07-27-2021 Episodic Other and unspecified benign neoplasm (1 source) Personal history of colonic polyps; Translations: [Personal history of colonic polyps] Episodic Other congenital anomalies (1 source) Congenital pes planus; Translations: [Congenital pes planus, unspecified foot] Onset: 0 02-19-2009 Chronic Other gastrointestinal disorders (5 sources) Esophageal dysphagia; Translations: [Other dysphagia] 07-27-2021 Episodic Other gastrointestinal disorders (7 sources) Constipation; Translations: [Constipation, unspecified] Onset: 6 04-05-2005 Episodic Other gastrointestinal disorders (1 source) Constipation, unspecified; Translations: [Constipation, unspecified] Episodic Other gastrointestinal disorders (1 source) Other dysphagia; Translations: [Other dysphagia] Episodic Other nervous system disorders (2 sources) 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 This is likely due to atrophy of the cerebellum as well as progressive aging. At this point patient seems to be relatively stable with regard to the tremor. No particular action recommended. Other screening for suspected conditions (not mental disorders or infectious disease) (6 sources) Patient encounter status; Translations: [Encounter for screening for malignant neoplasm of intestinal tract, unspecified] 06-02-2017 Episodic Other upper respiratory disease (1 source) Allergic rhinitis; Translations: [Allergic rhinitis, unspecified] Onset: 6 06-14-2005 Chronic Paralysis (2 sources) Cerebral palsy; Translations: [Cerebral palsy, unspecified] 03-27-2024 Chronic Comment on above: Patient with longsta nding history of cerebral palsy. This appears to be supported by history as well as CT scan of head documenting presence of cerebral as well as cerebellar atrophy. Patient has been in a penitentiary for 20 years. Patient has 6 siblings 1 of whom has similar difficulties as the patient.Patient has been stable for extended period of time however more recently has had evidence of some memory defect. No particular change in health such as infections or other events noted. There is a record indicating a remote stroke but this does not appear to be clinically evident.Patient does have a record indicating schizophrenia. Patient is receiving medications that include antipsychotics. Patient has no obvious untoward effects of medication such as extraparametal symptoms.Patient is likely experiencing a change in function related to aging. This may be similar to but not necessarily identical to Alzheimer's disease. The difference being that patient may be experiencing a proptosis or neuronal due to pre-existing cerebral palsy and aging rather than development of neurofibrillary plaques and tangles in the cortex is seen in Alzheimer's disease.It is doubtful in my opinion that adding Aricept or Namenda or other anti-Alzheimer medication would be of benefit in this case.At this point patient is appears to be doing quite well clinic. I would make no particular changes.Patient may return to neurology clinic should there be a change in status for reassessment. Residual codes; unclassified (1 source) Memory impairment; Translations: [Other amnesia] 03-27-2024 Episodic Schizophrenia and other psychotic disorders (1 source) Schizoaffective disorder; Translations: [Schizoaffective disorder, unspecified] 10-20-2004 Chronic Thyroid disorders (2 sources) Hypothyroidism; Translations: [Hypothyroidism, unspecified] Onset: 01-19-2009 Chronic Viral infection (1 source) Disease caused by 2019-nCoV; Translations: [COVID-19] 08-29-2022 Episodic Past or Other Problems Problem Classification Problem Date Documented Da te Episodic/Chronic Acquired foot deformities (1 source) Acquired equinus deformity of foot; Translations: [Other acquired deformities of unspecified foot] Onset: 04-01-2009 04-01-2009 Episodic Diabetes mellitus without complication (1 source) Impaired fasting glycemia; Translations: [Impaired fasting glucose] Onset: 01-19-2009 01-19-2009 Episodic Other connective tissue disease (1 source) Pain in limb; Translations: [Pain in unspecified limb] Onset: 02-19-2009 02-19-2009 Episodic Other connective tissue disease (1 source) Compartment syndrome; Translations: [Nontraumatic compartment syndrome of other sites] Onset: 02-19-2009 02-19-2009 Episodic Other connective tissue disease (1 source) Enthesopathy of ankle AND/OR tarsus; Translations: [Other enthesopathy of unspecified foot and ankle] Onset: 04-01-2009 04-01-2009 Episodic Other nervous system disorders (1 source) Other symptoms and signs involving cognitive functions and awareness; Translations: [Other symptoms and signs involving cognitive functions and awareness] Onset: 02-22-2024 Episodic Other upper respiratory disease (1 source) Other diseases of pharynx; Translations: [Other diseases of pharynx, not elsewhere classified] Onset: 04-05-2005 04-05-2005 Episodic Results Test Name Value Interpretation Reference Range Facility Microalb:Creat Ratio,Random URon 07-26-2024 MALB:CREAT 26.2 mg/g CRE [facility] Comment on above: Result Comment: AMENDED REPORT 07/26/24 0944 MALB:CREAT previously reported as: 262.2 mg/g CRE Performed By: #### L 501.31555, L501.9520, L506.0400, L502.0250, L500.4050, L500.4100 #### [facility] [address] [place], [address] Anion gap in Serum or Plasma Ordered By: Jayant Joy on 06-13-2024 Anion gap [Moles/Vol] 11 mmol/L 5-15 [facility] BUN/creatinine ratioOrdered By: Jayant Joy on 06-13-2024 Urea nitrogen/Creatinine [Mass ratio] 5.0 mg/mg Low 10-20 [facility] Bilirubin, totalOrdered By: Jayant Joy on 06-13-2024 Bilirubin [Mass/Vol] 0.31 mg/dL 0.00-1.30 [facility] Calculated very low density lipoprotein (VLDL) cholesterol measurementOrdered By: Jayant Joy on 06-13-2024 Calculated very low density lipoprotein (VLDL) cholesterol measurement 14 mg/dL 5-40 [facility] Carbon dioxide, total [Moles /volume] in Central venous bloodOrdered By: Jayant Joy on 06-13-2024 CO2 [Moles/Vol] 23.3 mmol/L 21.0-32.0 [facility] Chloride assayOrdered By: Tan Joy on 06-13-2024 Chloride [Moles/Vol] 98 mmol/L 98-108 [facility] Comprehensive Metabolic Prof ilon 06-13-2024 Albumin [Mass/Vol] 4.0 g/dL Normal 3.5-5.0 [facility] Comment on above: Performed By: #### L 501.42783, L501.9520, L506.0400, L502.0250, L500.4050, L500.4100 #### [facility] [address] [place], [address] Albumin/Globulin [Mass ratio] 1.5 {ratio} Normal 0.9-2.4 [facility] Comment on above: Performed By: #### L 501.27300, L501.9520, L506.0400, L502.0250, L500.4050, L500.4100 #### [facility] [address] [place], [address] ALK PHOS 58 U/L Normal 40-129 [facility] Comment on above: Performed By: #### L 501.33766, L501.9520, L506.0400, L502.0250, L500.4050, L500.4100 #### [facility] [address] [place], [address] ALT [Catalytic activity/Vol] 16 U/L Normal <=46 [facility] Comment on above: Performed By: #### L 501.47244, L501.9520, L506.0400, L502.0250, L500.4050, L500.4100 #### [facility] [address] [place], [address] AST [Catalytic activity/Vol] 21 U/L Normal <=37 [facility] Comment on above: Performed By: #### L 501.88299, L501.9520, L506.0400, L502.0250, L500.4050, L500.4100 #### [facility] [address] [place], [address] Bilirubin [Mass/Vol] 0.31 mg/dL Normal 0.00-1.30 [facility] Comment on above: Performed By: #### L 501.44621, L501.9520, L506.0400, L502.0250, L500.4050, L500.4100 #### [facility] [address] [place], [address] BUN/CRE 5.0 RATIO Low 10-20 [facility] Comment on above: Performed By: #### L 501.12929, L501.9520, L506.0400, L502.0250, L500.4050, L500.4100 #### [facility] [address] [place], [address] Calcium [Mass/Vol] 9.5 mg/dL Normal 7.6-11.0 [facility] Comment on above: Performed By: #### L 501.23733, L501.9520, L506.0400, L502.0250, L500.4050, L500.4100 #### [facility] [address] [place], [address] Chloride [Moles/Vol] 98 mmol/L Normal 98-108 [facility] Comment on above: Performed By: #### L 501.78686, L501.9520, L506.0400, L502.0250, L500.4050, L500.4100 #### [facility] [address] [place], [address] CO2 [Moles/Vol] 23.3 mmol/L Normal 21.0-32.0 [facility] Comment on above: Performed By: #### L 501.77127, L501.9520, L506.0400, L502.0250, L500.4050, L500.4100 #### [facility] [address] [place], [address] Creatinine [Mass/Vol] 0.86 mg/dL Normal 0.70-1.20 [facility] Comment on above: Performed By: #### L 501.47139, L501.9520, L506.0400, L502.0250, L500.4050, L500.4100 #### [facility] [address] [place], [address] GAP 11 Normal 5-15 [facility] Comment on above: Performed By: #### L 501.32563, L501.9520, L506.0400, L502.0250, L500.4050, L500.4100 #### [facility] [address] [place], [address] GFR/1.73 sq M.predicted among non-blacks MDRD (S/P/Bld) [Vol rate/Area] 101 mL/min/{1.73_m2} Normal >60 [facility] Comment on above: Result Comment: mL/m in/1.73m2 CKD-EPI Creatinine Equation (2020) Performed By: #### L 501.70961, L501.9520, L506.0400, L502.0250, L500.4050, L500.4100 #### [facility] [address] [place], [address] Globulin (S) [Mass/Vol] 2.7 g/dL Normal 2.2-4.2 [facility] Comment on above: Performed By: #### L 501.84483, L501.9520, L506.0400, L502.0250, L500.4050, L500.4100 #### [facility] [address] [place], [address] Glucose [Mass/Vol] 96 mg/dL Normal 70-99 [facility] Comment on above: Performed By: #### L 501.41884, L501.9520, L506.0400, L502.0250, L500.4050, L500.4100 #### [facility] [address] [place], [address] Potassium [Moles/Vol] 4.8 mmol/L Normal 3.3-5.1 [facility] Comment on above: Performed By: #### L 501.65677, L501.9520, L506.0400, L502.0250, L500.4050, L500.4100 #### [facility] [address] [place], [address] Sodium [Moles/Vol] 133 mmol/L Normal 133-145 [facility] Comment on above: Performed By: #### L 501.50357, L501.9520, L506.0400, L502.0250, L500.4050, L500.4100 #### [facility] [address] [place], [address] T PROT 6.7 g/dL Normal 5.9-8.4 [facility] Comment on above: Performed By: #### L 501.61108, L501.9520, L506.0400, L502.0250, L500.4050, L500.4100 #### [facility] [address] [place], [address] Urea nitrogen [Mass/Vol] 4 mg/dL Normal 4-19 [facility] Comment on above: Performed By: #### L 501.10628, L501.9520, L506.0400, L502.0250, L500.4050, L500.4100 #### [facility] [address] [place], [address] Free T3on 06-13-2024 Free T3 [Mass/Vol] 2.5 pg/mL Normal 2.18-3.98 [facility] Comment on above: Performed By: #### L 501.18974, L501.9520, L506.0400, L502.0250, L500.4050, L500.4100 #### [facility] [address] [place], [address] Free S9Cfuodvw By: Jayant mcgarry on 06-13-2024 Free T3 [Mass/Vol] 2.5 pg/mL 2.18-3.98 [facility] Glomerular filtration rate ( GFR) estimation/1.73 sq m using serum, plasma, or whole bOrdered By: Jayant Joy on 06-13-2024 GFR/1.73 sq M.predicted among non-blacks MDRD (S/P/Bld) [Vol rate/Area] 101 mL/min/{1.73_m2} >60 [facility] Comment on above: mL/min/1.73m2 CKD-EP I Creatinine Equation (2020) LDL calc ser/plasOrdered By: Jayant Joy on 06-13-2024 Cholesterol in LDL [Mass/Vol] 56 mg/dL [facility] Comment on above: Ugaxscoqbj=820-705 m g/dL & Higher Rduj=589 mg/dL or greater Laboratory - Chemistry and C hemistry - challengeOrdered By: Jayant Joy on 06-13-2024 AST [Catalytic activity/Vol] 21 U/L <38 [facility] Lipid Profileon 06-13-2024 CHOL:HDL 2.32 Normal [facility] Comment on above: Performed By: #### L 501.11748, L501.9520, L506.0400, L502.0250, L500.4050, L500.4100 #### [facility] [address] [place], [address] Cholesterol [Mass/Vol] 124 mg/dL Normal <=200 [facility] Comment on above: Result Comment: Chol esterol level, Desirable <200 mg/dL Borderline high cholesterol 200-239 mg/dL High cholesterol >=240 mg/dL Recommendations of the NCEP Adult Treatment Panel for the following risk-cutoff thresholds for the [place] population. Performed By: #### L 501.66703, L501.9520, L506.0400, L502.0250, L500.4050, L500.4100 #### [facility] [address] [place], [address] Cholesterol in HDL [Mass/Vol] 54 mg/dL Normal [facility] Comment on above: Result Comment: Geri onal Cholesterol Education Program (NCEP) guidelines: <40 mg/dL: Low HDL-cholesterol (major risk factor for CHD) >= 60 mg/dL: High HDL-cholesterol (negative risk factor for CHD) HDL-cholesterol is affected by a number of factors, e.g. smoking, exercise, hormones, sex and age. Performed By: #### L 501.73615, L501.9520, L506.0400, L502.0250, L500.4050, L500.4100 #### [facility] [address] [place], [address] Cholesterol in LDL [Mass/Vol] 56 mg/dL Normal [facility] Comment on above: Result Comment: Bord mqsiam=905-146 mg/dL Higher Cesd=439 mg/dL or greater Performed By: #### L 501.38941, L501.9520, L506.0400, L502.0250, L500.4050, L500.4100 #### [facility] [address] [place], [address] Cholesterol in VLDL [Mass/Vol] 14 mg/dL Normal 5-40 [facility] Comment on above: Performed By: #### L 501.73478, L501.9520, L506.0400, L502.0250, L500.4050, L500.4100 #### [facility] [address] [place], [address] Triglyceride [Mass/Vol] 71 mg/dL Normal [facility] Comment on above: Result Comment: The drugs N-Acetylcysteine and Metamizole may falsely depress this assay. Normal range: <150 mg/dL Borderline High: 150-199 mg/dL High: 200-499 mg/dL Very High: >500 mg/dL Performed By: #### L 501.18408, L501.9520, L506.0400, L502.0250, L500.4050, L500.4100 #### [facility] [address] [place], [place], [id number] Potassium measurement (mass/ volume)Ordered By: Jayant Joy on 06-13-2024 Potassium (Unsp spec) [Mass/Vol] 4.8 mmol/L 3.3-5.1 [facility] Random urine creatinine kathleen urement (mass/volume)Ordered By: Jayant Joy on 06-13-2024 Creatinine Unsp time (U) [Mass/Vol] 71.70 mg/dL 39.00-259.00 [facility] Screening total cholesterol/ high density lipoprotein (HDL) cholesterol ratioOrdered By: Jayant Joy on 06-13-2024 Cholesterol.total/Sarah sterol in HDL [Mass ratio] 2.32 {ratio} [facility] Serum creatinine measurement (mass/volume)Ordered By: Jayant Joy on 06-13-2024 Creatinine [Mass/Vol] 0.86 mg/dL 0.70-1.20 [facility] Serum globulin measurementOr dered By: Jayant Joy on 06-13-2024 Globulin (S) [Mass/Vol] 2.7 g/dL 2.2-4.[address] [facility] Serum glucose measurement (m ass/volume)Ordered By: Jayant Joy on 06-13-2024 Glucose [Mass/Vol] 96 mg/dL 70-99 [facility] Serum or plasma alanine samano otransferase (ALT) measurementOrdered By: Jayant Joy on 06-13-2024 ALT [Catalytic activity/Vol] 16 U/L <47 [facility] Serum or plasma albumin kathleen urement (mass/volume)Ordered By: Jayant Joy on 06-13-2024 Albumin [Mass/Vol] 4.0 g/dL 3.5-5.0 [facility] Serum or plasma albumin/glob ulin mass ratioOrdered By: Jayant Joy on 06-13-2024 Albumin/Globulin [Mass ratio] 1.5 {ratio} 0.9-2.4 [facility] Serum or plasma alkaline kylie sphatase measurementOrdered By: Jayant Joy on 06-13-2024 ALP [Catalytic activity/Vol] 58 U/L 40-129 [facility] Serum or plasma calcium kathleen urement (mass/volume)Ordered By: Jayant Joy on 06-13-2024 Calcium [Mass/Vol] 9.5 mg/dL 7.6-11.0 [facility] Serum or plasma cholesterol in HDL measurement (mass/volume)Ordered By: Jayant Joy on 06-13-2024 Cholesterol in HDL [Mass/Vol] 54 mg/dL >40 [facility] Comment on above: National Cholesterol Education Program (NCEP) guidelines:<40 mg/dL: Low HDL-cholesterol (major risk factor for CHD)>= 60 mg/dL: High HDL-cholesterol (negative risk factor for CHD)HDL-cholesterol is affected by a number of factors, e.g. smoking, exercise, hormones, sex and age. Serum or plasma cholesterol measurement (mass/volume)Ordered By: Jayant Joy on 06-13-2024 Cholesterol [Mass/Vol] 124 mg/dL <201 [facility] Comment on above: Cholesterol level, D esirable <200 mg/dLBorderline high cholesterol 200-239 mg/dLHigh cholesterol >=240 mg/dLRecommendations of the NCEP Adult Treatment Panel for the following risk-cutoff thresholds for the [place] population. Serum or plasma urea nitroge n measurement (mass/volume)Ordered By: Jayant Joy on 06-13-2024 Urea nitrogen [Mass/Vol] 4 mg/dL 4-19 [facility] Sodium levelOrdered By: Jayant Joy on 06-13-2024 Sodium [Moles/Vol] 133 mmol/L 133-145 [facility] T4 Free Directon 06-13-2024 T4 FREE DIRECT 1.10 ng/dL Normal 0.76-1.46 [facility] Comment on above: Performed By: #### L 501.19460, L501.9520, L506.0400, L502.0250, L500.4050, L500.4100 #### [facility] [address] [place], [place], [id number] T4 freeOrdered By: Jayant mcgarry on 06-13-2024 Free T4 [Mass/Vol] 1.10 ng/dL 0.76-1.46 [facility] TSH DL <= 0.005 mIU/L QnOrde red By: Jayant Joy on 06-13-2024 TSH Qn 0.856 uIU/mL 0.300-4.200 [facility] Thyroid Stim Hormone (TSH)on 06-13-2024 TSH 0.856 uIU/mL Normal 0.300-4.200 [facility] Comment on above: Performed By: #### L 501.68680, L501.9520, L506.0400, L502.0250, L500.4050, L500.4100 #### [facility] [address] [place], [place], [id number] Total proteinOrdered By: Carly Joy on 06-13-2024 Protein [Mass/Vol] 6.7 g/dL 5.9-8.4 [facility] Triglycerides measurementOrd ered By: Jayant Joy on 06-13-2024 Triglyceride [Mass/Vol] 71 mg/dL <[address] [facility] Comment on above: The drugs N-Acetylcy steine and Metamizole may falsely depress this assay. Normal range: <150 mg/dLBorderline High: 150-199 mg/dLHigh: 200-499 mg/dLVery High: >500 mg/dL Urine albumin measurement [facility] detection limit of 20 mg/L or less (mass/volume)Ordered By: Jayant Joy on 06-13-2024 Albumin DL <= 20 mg/L (U) [Mass/Vol] 18.8 mg/L NO RANGE EST. [facility] Neurology Visit Reporton Neurology Visit Report [facility] [address] [place] [address], [address] [place] [address] OFFICE VISIT Date of Service: 03/27/24 MR#: [id number] Acct: [id number] Name: KJ DELCID Rep #: [id number] : 1965 Provider: Dr. Pete mercado MD Age/Sex: 58/M Location: [facility] [place] Status: Signed HPI HPI Chief Complaint: Establish Care Details: The patient is a 58-year-old left handed male who presents to [facility]. He was referred 02/15/2024 Dr. Jayant Joy with [facility] for cognitive change. This gentleman is accompanied by a mental health worker from [facility]. Information was obtained from the patient, svp group director and medical records. Medical records were provided by the svp group director as well as pre-existing medical records and the patient chart. This gentleman has been a penitentiary resident for at least 20 years. Records indicate that he has cerebral palsy. He CT scan of the head performed on 09/21/2020 is available in the chart. He was reported to have cerebral atrophy. I personally reviewed the images and note that he had predominantly bifrontal atrophy somewhat greater on the right side than the left. 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 Records also indicate that he has a seizure disorder however no seizures been noted in this patient for an extended period of time. He is not on Dilantin. Records also indicate that he has a diagnosis of schizophrenia. I note that the patient denies hallucinations or delusions or other psychotic features at the time of this visit. His medication list is available for review. Patient does take Seroquel, fluphenazine and Zoloft. Takes a number of other medications as well. Patient is able to carry out activities of daily living. Recently there has been some concern about his ability to recall what meals is eaten or he may forget where he may be traveling to with respect to destination. This appears to be a change in his ability to recall which is relatively new. No new changes in behavior noted. Patient remains cooperative and pleasant. ROS Head no headache Eyes wears glasses. No history of glaucoma or loss of vision Hearing intact Ability to swallow. Occasionally has some mild difficulty with choking but appears stable. Respiratory no respiratory difficulties or recent respiratory illnesses. No hemoptysis. Cardiac no cardiac history. No chest pain. Abdomen no abdominal issues. Does not vomit blood or passed blood in stool. No hematuria. Extremities without trauma Skin without rash Neurologic possible recent memory loss prior history of several palsy. Some indication of seizures which may have been early in life but none noted for some time. Psychiatric said to have schizophrenia. Exam Const Other: Blood pressure 142/84 pulse 85 respiration 16 temperature 97.8 O2 sat 99%. General appearance a well-developed well-nourished male. BMI is 26.5%. HEENT normocephalic. Conjunctiva clear. Respiratory: Clear to auscultation Cardiac: Regular rhythm no murmur Abdomen not distended Extremities without evidence of trauma Skin appears intact on visualized areas. Neurologic examination: Mental status: Awake alert oriented to person place day month year. Memory showed recall 3 out of 3 objects immediately and after 5 minutes. Language showed normal center receptionist expression repetition. Insight and judgment may be intellectually limited but patient appears functional. No hallucinations or delusions identified. CN II-XII: Pupils equal round minimally reactive to light 3 mm. No visual field defect noted. Patient is wearing thick glasses. Extraocular muscles intact. No nystagmus no ptosis. Motor and sensory function face appears intact. Hearing intact. Swallowing phonation tongue appear normal. Patient appears to be edentulous. Motor examination demonstrated can move all 4 extremities without difficulty. No focal weakness identified. Cerebellar testing showed that he had a mild cerebellar tremor on finger-nose maneuvers. Mild resting tremor also noted. No cogwheeling rigidity or bradykinesia. Reflexes 1+ at biceps 1+ at knees. Sensory exam intact to tactile and vibratory sense. Station gait shows gait appears to be within normal limits. Station show that he wavered somewhat but otherwise stable. Assessment and Plan Assessment and Plan (1) Cerebral palsy: Status: Chronic Qualifiers: Cerebral palsy type: unspecified type Qualified Code(s): G80.9 - Cerebral palsy, unspecified Comment: Patient with longstanding history of cerebral palsy. This appears to be supported by history as well as CT scan of head documenting presence of cerebral as well as cerebellar atrophy. Patie (more content not included)... Normal [facility] Urine Cultureon 01-26-2024 [facility] Order Date: 01/23/24 Order Info: 630-4 - CUUR Streptococcus mitis/ oralis [place] Count 25,000-50,000 Streptococcus mitis/ oralis: REACTION Ampicillin Islt KAREN <=0.25 Penicillin G Islt KAREN 0.12 S Cefotaxime Islt KAREN <=0.12 S cefTRIAXone Islt KAREN <=0.12 S Linezolid Islt KAREN <=2 S Vancomycin Islt KAREN 0.5 S Normal [facility] Comment on above: Performed By: #### M 100.2200, L400.0001 #### [facility] [address] [place], [place], [address] Urinalysis, Completeon 01-23 EPI,SQUAMOUS 0-5 SEEN Normal 0-5 [facility] Comment on above: Order Comment: Order Date: 01/23/24 Order Info: [id number] - [facility] [employer] DIRECTOR TO SPECIFY Performed By: #### M 100.2200, L400.0001 #### [facility] [address] [place], [address] RBC 0 SEEN Normal 0-5 [facility] Comment on above: Order Comment: Order Date: 01/23/24 Order Info: [id number] [employer] DIRECTOR TO SPECIFY Performed By: #### M 100.2200, L400.0001 #### [facility] [address] [place], [address] WBC 0-5 SEEN Normal 0-5 [facility] Comment on above: Order Comment: Order Date: 01/23/24 Order Info: [address] [place] [address] [employer] DIRECTOR TO SPECIFY Performed By: #### M 100.2200, L400.0001 #### [facility] [address] [place], [address] BACTERIA 0 SEEN Normal None Seen [facility] [facility] Comment on above: Order Comment: Order Date: 01/23/24 Order Info: [id number] [employer] DIRECT[employer] TO SPECIFY Performed By: #### M 100.2200, L400.0001 #### [facility] [address] [place], [address] Mucus Ql (Urine sed) 0 SEEN Normal [facility] Comment on above: Order Comment: Order Date: 01/23/24 Order Info: [address] [place] [address] [employer] DIRECTOR TO SPECIFY Performed By: #### M 100.2200, L400.0001 #### [facility] [address] [place], [address] Basophil percentageOrdered B y: Jayant Joy on 06-02-2023 Bilirubin [Mass/Vol] 0.30 mg/dL 0.20-1.00 [facility] Comment on above: For patients on eltr ombopag therapy, use of Dimension [place] TBIL is not recommended. Chloride [Moles/Vol] 103 mmol/L 98-107 [facility] Cholesterol [Mass/Vol] 123 mg/dL <200 [facility] Comment on above: <200 mg/dL Desirable 200-240 mg/dL Borderline >240 mg/dL High Risk Glucose [Mass/Vol] 84 mg/dL 74-106 [facility] Potassium [Moles/Vol] 4.5 mmol/L 3.5-5.1 [facility] Protein [Mass/Vol] 7.0 g/dL 6.4-8.2 [facility] Sodium [Moles/Vol] 135 mmol/L 136-145 [facility] Triglyceride [Mass/Vol] 112 mg/dL <[address] [facility] Comment on above: The drugs N-Acetylcy steine and Metamizole may falsely depress this assay.Serum Triglycerides Reference Interval Normal <150 mg/dL Borderline high 150 - 199 mg/dL High 200 - 499 mg/dL Very High > or = 500 mg/dL Laboratory - Chemistry and C hemistry - challengeOrdered By: Jayant Joy on 06-02-2023 Albumin/Globulin [Mass ratio] 0.9 {ratio} 0.9-2.4 [facility] ALP [Catalytic activity/Vol] 55 U/L 45-117 [facility] ALT [Catalytic activity/Vol] 22 U/L 16-61 [facility] Cholesterol in HDL [Mass/Vol] 54 mg/dL >40 [facility] Comment on above: The drugs N-Acetylcy steine and Metamizole may falsely depress this assay. Reference Range HDL <40 mg/dL Low HDL Cholesterol HDL >or= 60 mg/dL High HDL Cholesterol Cholesterol in LDL [Mass/Vol] 47 mg/dL 0-130 [facility] CO2 [Moles/Vol] 29.0 mmol/L 21.0-32.0 [facility] Globulin (S) [Mass/Vol] 3.6 g/dL 2.2-4.[address] [facility] Urea nitrogen/Creatinine [Mass ratio] 8.9 mg/mg 10-20 [facility] No Panel InformationOrdered By: Jayant Joy on 06-02-2023 Estimated GFR (MDRD) Amer 112 mL/min >60 [facility] Comment on above: GFR Calc Estimated GFR (MDRD) Non-Af Amer 93 mL/min >60 [facility] Comment on above: Non- GFR Calc Free Triiodothyronine (T3) pg/dL 2.2 pg/mL 2.18-3.98 [facility] VLDL Cholesterol 22 mg/dL 5-40 [facility] Serum or plasma calcium kathleen urement (mass/volume)Ordered By: Jayant Joy on 06-02-2023 Calcium [Mass/Vol] 9.2 mg/dL 8.5-10.1 [facility] Serum or plasma creatinine m easurement (mass/volume)Ordered By: Jayant Joy on 06-02-2023 Creatinine [Mass/Vol] 0.90 mg/dL 0.70-1.30 [facility] Comment on above: The validity of the calculated GFR & GFRAA in patients over 70 years has not been determined. Clinical correlation is essential. Serum or plasma thyroid stim ulating hormone (TSH) measurement (units/volume)Ordered By: Jayant Joy on 06-02-2023 TSH Qn 1.11 uIU/mL 0.358-3.74 [facility] Serum or plasma urea nitroge n measurement (mass/volume)Ordered By: Jayant Joy on 06-02-2023 Urea nitrogen [Mass/Vol] 8 mg/dL 7-18 [facility] Thin prep Papanicolaou smear with manual screeningOrdered By: Jayant Joy on 06-02-2023 Thin prep Papanicolaou smear with manual screening 3.4 g/dL 3.2-5.0 [facility] Thin prep Papanicolaou smear with manual screening 13 U/L 15-37 [facility] Thin prep Papanicolaou smear with manual screening 3 5-15 [facility] Thin prep Papanicolaou smear with manual screening 0.87 ng/dL 0.76-1.46 [facility] Basophil percentageOrdered B y: Jessie Vasquez on 12-23-2022 Ammonia (P) [Moles/Vol] 21.0 umol/L -32 [facility] Bilirubin [Mass/Vol] 0.20 mg/dL 0.20-1.00 [facility] Comment on above: For patients on eltr ombopag therapy, use of Dimension [place] TBIL is not recommended. Chloride [Moles/Vol] 100 mmol/L 98-107 [facility] Glucose [Mass/Vol] 105 mg/dL 74-106 [facility] Comment on above: Fasting Glucose resu lt from 100 to 125 mg/dL suggests IMPAIRED HOMEOSTASIS per A.D.A. criteria. Potassium [Moles/Vol] 4.6 mmol/L 3.5-5.1 [facility] Protein [Mass/Vol] 7.3 g/dL 6.4-8.2 [facility] Sodium [Moles/Vol] 131 mmol/L 136-145 [facility] WBC (Bld) [#/Vol] 4.3 10*3/uL 4.4-11.0 [facility] Blood erythrocytes count (nu mber/volume)Ordered By: Jessie Vasquez on 12-23-2022 RBC (Bld) [#/Vol] 5.29 10*6/uL 4.6-6.2 [facility] Blood hemoglobin measurement (mass/volume)Ordered By: Jessie Vasquez on 12-23-2022 Hemoglobin (Bld) [Mass/Vol] 14.3 g/dL 13.0-16.5 [facility] Blood platelet mean volumeOr dered By: Jessie Vasquez on 12-23-2022 Platelet mean volume (Bld) [Entitic vol] 9.6 fL 6.2-12.0 [facility] Determination of erythrocyte mean corpuscular volume (MCV)Ordered By: Jessie Vasquez on 12-23-2022 MCV (RBC) [Entitic vol] 76.7 fL 80-[address] [facility] Hematocrit Auto (Bld) [Volum e fraction]Ordered By: Jessie Vasquez on 12-23-2022 Hematocrit (Bld) [Volume fraction] 40.6 % 40-54 [facility] Laboratory - Chemistry and C hemistry - challengeOrdered By: [facility] 12-23-2022 ALP [Catalytic activity/Vol] 59 U/L 45-117 [facility] ALT [Catalytic activity/Vol] 34 U/L 16-61 [facility] CO2 [Moles/Vol] 27.0 mmol/L 21.0-32.0 [facility] Globulin (S) [Mass/Vol] 3.7 g/dL 2.2-4.[address] [facility] Urea nitrogen/Creatinine [Mass ratio] 9.1 mg/mg 10-20 [facility] Laboratory - Hematology and Cell countsOrdered By: Jessie Vasquez on 12-23-2022 Erythrocyte distribution width (RBC) [Entitic vol] 39.1 fL 35.1-43.9 [facility] Erythrocyte distribution width (RBC) [Ratio] 14.2 % 11.6-14.6 [facility] MCH (RBC) [Entitic mass] 27.0 pg 27.0-32.0 [facility] MCHC Auto (RBC) [Mass/Vol]Or dered By: Jessie Vasquez on 12-23-2022 MCHC (RBC) [Mass/Vol] 35.2 g/dL 32-36 [facility] No Panel InformationOrdered By: Jessie Vasquez on 12-23-2022 Estimated GFR (MDRD) Amer 115 mL/min >60 [facility] Comment on above: GFR Calc Estimated GFR (MDRD) Non-Af Amer 95 mL/min >60 [facility] Comment on above: Non- GFR Calc Valproic Acid (Depakene) Level 84 ug/mL 50-100 [facility] Platelets bldOrdered By: Radha Vasquez on 12-23-2022 Platelets (Bld) [#/Vol] 245 10*3/uL 150-450 [facility] Serum or plasma albumin kathleen urement (mass/volume)Ordered By: Jessie Vasquez on 12-23-2022 Albumin [Mass/Vol] 3.6 g/dL 3.2-5.0 [facility] Serum or plasma albumin/glob ulin mass ratioOrdered By: Jessie Vasquez on 12-23-2022 Albumin/Globulin [Mass ratio] 1.0 {ratio} 0.9-2.4 [facility] Serum or plasma calcium kathleen urement (mass/volume)Ordered By: Jessie Vasquez on 12-23-2022 Calcium [Mass/Vol] 9.2 mg/dL 8.5-10.1 [facility] Serum or plasma creatinine m easurement (mass/volume)Ordered By: Jessie Vasquez on 12-23-2022 Creatinine [Mass/Vol] 0.88 mg/dL 0.70-1.30 [facility] Comment on above: The validity of the calculated GFR & GFRAA in patients over 70 years has not been determined. Clinical correlation is essential. Serum or plasma urea nitroge n measurement (mass/volume)Ordered By: Jessie Vasquez on 12-23-2022 Urea nitrogen [Mass/Vol] 8 mg/dL 7-18 [facility] Thin prep Papanicolaou smear with manual screeningOrdered By: Jessie Vasquez on 12-23-2022 Thin prep Papanicolaou smear with manual screening 16 U/L 15-37 [facility] Thin prep Papanicolaou smear with manual screening 4 5-15 [facility] Basophil percentageOrdered B y: Jayant Joy on 11-17-2022 Bilirubin [Mass/Vol] 0.20 mg/dL 0.20-1.00 [facility] Comment on above: For patients on eltr ombopag therapy, use of Dimension [place] TBIL is not recommended. Chloride [Moles/Vol] 101 mmol/L 98-107 [facility] Cholesterol [Mass/Vol] 115 mg/dL <200 [facility] Comment on above: <200 mg/dL Desirable 200-240 mg/dL Borderline >240 mg/dL High Risk Glucose [Mass/Vol] 96 mg/dL 74-106 [facility] Potassium [Moles/Vol] 4.1 mmol/L 3.5-5.1 [facility] Protein [Mass/Vol] 7.0 g/dL 6.4-8.2 [facility] Sodium [Moles/Vol] 134 mmol/L 136-145 [facility] Triglyceride [Mass/Vol] 143 mg/dL <199 [facility] Comment on above: The drugs N-Acetylcy steine and Metamizole may falsely depress this assay.Serum Triglycerides Reference Interval Normal <150 mg/dL Borderline high 150 - 199 mg/dL High 200 - 499 mg/dL Very High > or = 500 mg/dL Laboratory - Chemistry and C hemistry - challengeOrdered By: Jayant Joy on 11-17-2022 ALP [Catalytic activity/Vol] 57 U/L 45-117 [facility] ALT [Catalytic activity/Vol] 26 U/L 16-61 [facility] CO2 [Moles/Vol] 27.0 mmol/L 21.0-32.0 [facility] Free T4 [Mass/Vol] 0.96 ng/dL 0.76-1.46 [facility] Globulin (S) [Mass/Vol] 3.7 g/dL 2.2-4.[address] [facility] Urea nitrogen/Creatinine [Mass ratio] 8.0 mg/mg 10-20 [facility] No Panel InformationOrdered By: Jayant Joy on 11-17-2022 Estimated GFR (MDRD) Amer 139 mL/min >60 [facility] Comment on above: GFR Calc Estimated GFR (MDRD) Non-Af Amer 115 mL/min >60 [facility] Comment on above: Non- GFR Calc Free Triiodothyronine (T3) pg/dL 2.1 pg/mL 2.18-3.98 [facility] Thyroid Stimulating Hormone (TSH) 0.73 uIU/mL 0.358-3.74 [facility] Urine Microalbumin/Creatinine Ratio TNP [facility] Comment on above: Test not performed Serum or plasma albumin kathleen urement (mass/volume)Ordered By: Jayant Joy on 11-17-2022 Albumin [Mass/Vol] 3.3 g/dL 3.2-5.0 [facility] Serum or plasma albumin/glob ulin mass ratioOrdered By: Jayant Joy on 11-17-2022 Albumin/Globulin [Mass ratio] 0.9 {ratio} 0.9-2.4 [facility] Serum or plasma calcium kathleen urement (mass/volume)Ordered By: Jayant Joy on 11-17-2022 Calcium [Mass/Vol] 8.8 mg/dL 8.5-10.1 [facility] Serum or plasma cholesterol in HDL measurement (mass/volume)Ordered By: Jayant Joy on 11-17-2022 Cholesterol in HDL [Mass/Vol] 55 mg/dL >40 [facility] Comment on above: The drugs N-Acetylcy steine and Metamizole may falsely depress this assay. Reference Range HDL <40 mg/dL Low HDL Cholesterol HDL >or= 60 mg/dL High HDL Cholesterol Serum or plasma cholesterol in VLDL measurement (mass/volume)Ordered By: Jayant Joy on 11-17-2022 Cholesterol in VLDL [Mass/Vol] 29 mg/dL 5-40 [facility] Serum or plasma creatinine m easurement (mass/volume)Ordered By: Jayant Joy on 11-17-2022 Creatinine [Mass/Vol] 0.75 mg/dL 0.70-1.30 [facility] Comment on above: The validity of the calculated GFR & GFRAA in patients over 70 years has not been determined. Clinical correlation is essential. Serum or plasma low density lipoprotein (LDL) cholesterol measurement (mass/volume)Ordered By: Jayant Joy on 11-17-2022 Cholesterol in LDL [Mass/Vol] 31 mg/dL 0-130 [facility] Serum or plasma urea nitroge n measurement (mass/volume)Ordered By: Jayant Joy on 11-17-2022 Urea nitrogen [Mass/Vol] 6 mg/dL 7-18 [facility] Thin prep Papanicolaou smear with manual screeningOrdered By: Jayant Joy on 11-17-2022 Thin prep Papanicolaou smear with manual screening 12 U/L 15-37 [facility] Thin prep Papanicolaou smear with manual screening 6 5-15 [facility] Thin prep Papanicolaou smear with manual screening < 5.0 mg/L NO RANGE EST. [facility] Urine creatinine measurement (mass/volume)Ordered By: Jayant Joy on 11-17-2022 Creatinine (U) [Mass/Vol] 47.10 mg/dL NO RANGE EST. [facility] CNOVon 08-29-2022 CNOV Office Visit (WSTR) ---- KJ DELCID ([id number]) 1965 M Date Time Provider Department 08/29/22 8:15 AM HANANE CRUZ [facility] During your visit today, we recorded the following information about you: Temperature Pulse Respiration Blood pressure 96.9 degrees 84/minute 16/minute 122/72 Weight 67.1 kg Hanane Cruz PA 08/29/2022 8:20 AM Signed This note was created using [employer]. Subjective Kj Delcid is a 56 year old male. HPI 56-year-old male presents for COVID concern. Patient [place] with his caregiver [facility] [place] [facility]. Patient has had sore throat, congestion, cough since Monday per the caregiver. Patient states he has had cough for longer than that. No fevers. No vomiting or diarrhea. Tested him for COVID yesterday and it was positive. Caregiver states that he needed to be seen since he tested positive for COVID. They have not given him any medications for his symptoms. They need prescriptions for any medication for symptoms. Patient is still able to eat and drink. No chest pain or shortness of breath. No other complaints. PAST MEDICAL HISTORY Diagnosis Date Abdominal pain, epigastric ALLERGIC RHINITIS NOS 06/14/2005 COMMON MIGRAINE W/O MENTN INTRACT 04/05/2005 CONSTIPATION NOS 04/05/2005 DISEASE OF PHARYNX NEC 04/05/2005 Dizziness and giddiness Esophageal reflux HISTORY SEIZURE Hypothyroidism 01/19/2009 Other diseases of pharynx, not elsewhere classified(478.29) Schizoaffective disorder, unspecified condition Unspecified asthma(493.90) Unspecified essential hypertension Unspecified intellectual disabilities PAST SURGICAL HISTORY Procedure Laterality Date ESOPHAGOGASTRODUODE NOSCOPY TRANSORAL DIAGNOSTIC 11/24/04 EGD PULMONARY FUNCTION TEST 06/16/03 ALLERGIES Penicillins MEDICATIONS divalproex ER (DEPAKOTE ER) 250 mg 24 hr tablet levothyroxine (SYNTHROID) 112 mcg tablet aspirin 81 mg chewable tablet Take 81 mg by mouth once daily. Cholecalciferol, Vitamin D3, (VITAMIN D-3) 2,000 unit cap Take by mouth. propranolol (INDERAL) 20 mg tablet polyethylene glycol 3350 (MIRALAX, GLYCOLAX) 17 gram/dose powder QUEtiapine (SEROQUEL) 300 mg tablet PROCTOSOL HC 2.5 % rectal cream FLOVENT HFA 220 mcg/actuation inhaler divalproex ER (DEPAKOTE ER) 500 mg 24 hr tablet rosuvastatin (CRESTOR) 10 mg ORAL tablet Take 1 tablet by mouth daily at bedtime. docusate sodium (COLACE) 100 mg ORAL capsule Take one(1) tablet daily. May increase t twice daily if needed to prevent constipation diaper,brief,adult, disposable(ADULT BRIEFS - LARGE) as needed usually 5 daily/ urinary incontinence DX: 788.30/434.91 VITAMIN E 400 UNIT CAP soft gel one capusule daily quetiapine (SEROQUEL) 100 mg ORAL Tab 200 mg twice daily benztropine 1 mg ORAL Tab Take one(1) tablet two(2) times daily. fluphenazine deconoate 25 mg/mL INJECTION Soln every two(2) weeks (tcc) sertraline (ZOLOFT) 100 mg ORAL Tab Take one(1) tablet daily. sertraline (ZOLOFT) 50 mg ORAL Tab Take one(1) tablet daily. COMPOUNDED PRESCRIPTION Prevail Incontinent Product -diaper dx. incontinence TYLENOL EXTRA STRENGTH 500 MG TAB Take two(2) tablets every four(4) to six(6) hours as needed. acetaminophen (TYLENOL EXTRA STRENGTH) 500 mg tablet Take 2 tablets by mouth every 8 hours as needed for pain. guaiFENesin (MUCINEX) 600 mg 12 hr tablet Take 1 tablet by mouth twice daily. lisinopril (ZESTRIL, PRINIVIL) 5 mg tablet clarithromycin (BIAXIN) 500 mg ORAL Tab Take 1 tablet by mouth every 12 hours. (Patient not taking: Reported on 05/03/2018 ) albuterol HFA (PROVENTIL HFA) 90 mcg/Actuation INHALATION inhaler Inhale 2 Puffs as instructed every 4 hours as needed. (Patient not taking: Reported on 05/03/2018 ) phenytoin SR (DILANTIN) 100 mg ORAL ER capsule Take 1 capsule by mouth three times daily. (Patient not taking: Reported on 05/03/2018 ) fluticasone (FLONASE) 50 mcg/Actuation NASAL nasal spray Two sprays each nostril once daily for allergy symptoms. (Patient not taking: No sig reported) divalproex sodium(DEPAKOTE 500 MG TAB) 1 tablets twice daily (Patient not taking: No sig reported) PROPRANOLOL 10 MG TAB one tablet po three times daily (Patient not taking: No sig reported) levothyroxine sodium(SYNTHROID 75 MCG TAB) Take one(1) tablet daily. (Patient not taking: No sig reported) LORAZEPAM 0.5 MG TAB Take one(1) tablet three times daily and may repeat as needed for anxiety. FAMILY HISTORY Problem Relation Age of Onset Diabetes Mother Hypertension Mother Hypertension Father hiatal hernia Diabetes Maternal Grandmother Diabetes Maternal Grandfather Social History Tobacco Use Smoking status: Former Types: Cigarettes Quit date: 01/21/1994 Years since quittin.6 Smokeless tobacco: Never Substance Use Topics Alcohol use: No Review of Systems Constitutional: Negative for chills and feve (more content not included)... Normal [facility] Glucose Glucometer (BldC) [M ass/Vol]on 08-31-2021 Glucose [Mass/Vol] 95 mg/dL 74-106 [facility] Work Phone: Comment on above: MANAGEMENT OF PATIEN T CARE PER NURSING PROTOCOL Basophil percentageon 2021 Ammonia (P) [Moles/Vol] 33.0 umol/L 11-32 [facility] Work Phone: Laboratory - Chemistry and C hemistry - challengeon 08-27-2021 ALT [Catalytic activity/Vol] 26 U/L 16-61 [facility] Work Phone: No Panel Informationon 08-27 Valproic Acid (Depakene) Level 92 ug/mL 50-100 [facility] Work Phone: Platelets bldon 08-27-2021 Platelets (Bld) [#/Vol] 302 10*3/uL 150-450 [facility] Work Phone: Thin prep Papanicolaou smear with manual screeningon 08-27-2021 Thin prep Papanicolaou smear with manual screening 13 U/L 15-37 [facility] Work Phone: Absolute lymphocyte counton 07-20-2021 Lymphocytes Auto (Unsp spec) [#/Vol] 1.89 10*3/uL 0.83-4.51 [facility] Work Phone: Basophil percentageon 2021 Basophils/100 WBC (Bld) 0.5 % 0-[address] [facility] Work Phone: Bilirubin [Mass/Vol] 0.20 mg/dL 0.20-1.00 [facility] Work Phone: Comment on above: For patients on eltr ombopag therapy, use of Dimension [place] TBIL is not recommended. Chloride [Moles/Vol] 101 mmol/L 98-107 [facility] Work Phone: Cholesterol [Mass/Vol] 112 mg/dL <200 [facility] Work Phone: Comment on above: <200 mg/dL Desirable 200-240 mg/dL Borderline >240 mg/dL High Risk Eosinophils/100 WBC (Bld) 9.1 % 0-5 [facility] Work Phone: Glucose [Mass/Vol] 89 mg/dL 74-106 [facility] Work Phone: Neutrophils (Bld) [#/Vol] 1.6 10*3/uL 2.0-7.7 [facility] Work Phone: Neutrophils/100 WBC (Bld) 36.4 % 47-70 [facility] Work Phone: Potassium [Moles/Vol] 4.4 mmol/L 3.5-5.1 [facility] Work Phone: Protein [Mass/Vol] 7.1 g/dL 6.4-8.2 [facility] Work Phone: Sodium [Moles/Vol] 135 mmol/L 136-145 [facility] Work Phone: Triglyceride [Mass/Vol] 71 mg/dL <[address] [facility] Work Phone: Comment on above: The drugs N-Acetylcy steine and Metamizole may falsely depress this assay.Serum Triglycerides Reference Interval Normal <150 mg/dL Borderline high 150 - 199 mg/dL High 200 - 499 mg/dL Very High > or = 500 mg/dL WBC (Bld) [#/Vol] 4.3 10*3/uL 4.4-11.0 [facility] Work Phone: Blood erythrocytes count (nu mber/volume)on 07-20-2021 RBC (Bld) [#/Vol] 4.82 10*6/uL 4.6-6.2 [facility] Work Phone: Blood hemoglobin measurement (mass/volume)on 07-20-2021 Hemoglobin (Bld) [Mass/Vol] 13.1 g/dL 13.0-16.5 [facility] Work Phone: Blood lymphocytes/100 leukoc yteson 07-20-2021 Lymphocytes/100 WBC (Bld) 44.0 % 19-41 [facility] Work Phone: Blood monocytes/100 leukocyt eson 07-20-2021 Monocytes/100 WBC (Bld) 9.8 % 0-[address] [facility] Work Phone: Blood platelet mean volumeon 07-20-2021 Platelet mean volume (Bld) [Entitic vol] 10.4 fL 6.2-12.0 [facility] Work Phone: Determination of erythrocyte mean corpuscular volume (MCV)on 07-20-2021 MCV (RBC) [Entitic vol] 75.9 fL 80-[address] [facility] Work Phone: Hematocrit Auto (Bld) [Volum e fraction]on 07-20-2021 Hematocrit (Bld) [Volume fraction] 36.6 % 40-54 [facility] Work Phone: Laboratory - Chemistry and C hemistry - challengeon 07-20-2021 ALP [Catalytic activity/Vol] 56 U/L 45-117 [facility] Work Phone: ALT [Catalytic activity/Vol] 39 U/L 16-61 [facility] Work Phone: CO2 [Moles/Vol] 28.0 mmol/L 21.0-32.0 [facility] Work Phone: Free T4 [Mass/Vol] 0.89 ng/dL 0.76-1.46 [facility] Work Phone: Globulin (S) [Mass/Vol] 3.5 g/dL 2.2-4.[address] [facility] Work Phone: Urea nitrogen/Creatinine [Mass ratio] 11.3 mg/mg 10-20 [facility] Work Phone: Laboratory - Hematology and Cell countson 07-20-2021 Erythrocyte distribution width (RBC) [Entitic vol] 37.4 fL 35.1-43.9 [facility] Work Phone: Erythrocyte distribution width (RBC) [Ratio] 13.7 % 11.6-14.6 [facility] Work Phone: Immature granulocytes/100 WBC (Bld) 0.200 % 0.0-0.9 [facility] Work Phone: Comment on above: IG% - Immature Granu locytes (promyelocytes, myelocytes and metamyelocytes) > 1% indicates that a LEFT SHIFT is Present. MCH (RBC) [Entitic mass] 27.2 pg 27.0-32.0 [facility] Work Phone: Nucleated RBC/100 WBC (Bld) [Ratio] 0 % 0-5 [facility] Work Phone: MCHC Auto (RBC) [Mass/Vol]on 07-20-2021 MCHC (RBC) [Mass/Vol] 35.8 g/dL 32-36 [facility] Work Phone: No Panel Informationon 07-20 Estimated GFR (MDRD) Amer 130 mL/min >60 [facility] Work Phone: Comment on above: GFR Calc Estimated GFR (MDRD) Non-Af Amer 108 mL/min >60 [facility] [facility] Work Phone: Comment on above: Non- GFR Calc Thyroid Stimulating Hormone (TSH) 1.56 uIU/mL 0.358-3.74 [facility] Work Phone: Valproic Acid (Depakene) Level 66 ug/mL 50-100 [facility] Work Phone: Platelets bldon 07-20-2021 Platelets (Bld) [#/Vol] 257 10*3/uL 150-450 [facility] Work Phone: Serum or plasma albumin kathleen urement (mass/volume)on 07-20-2021 Albumin [Mass/Vol] 3.6 g/dL 3.2-5.0 [facility] Work Phone: Serum or plasma albumin/glob ulin mass ratioon 07-20-2021 Albumin/Globulin [Mass ratio] 1.0 {ratio} 0.9-2.4 [facility] Work Phone: Serum or plasma calcium kathleen urement (mass/volume)on 07-20-2021 Calcium [Mass/Vol] 9.3 mg/dL 8.5-10.1 [facility] Work Phone: Serum or plasma cholesterol in HDL measurement (mass/volume)on 07-20-2021 Cholesterol in HDL [Mass/Vol] 44 mg/dL >40 [facility] Work Phone: Comment on above: The drugs N-Acetylcy steine and Metamizole may falsely depress this assay. Reference Range HDL <40 mg/dL Low HDL Cholesterol HDL >or= 60 mg/dL High HDL Cholesterol Serum or plasma cholesterol in VLDL measurement (mass/volume)on 07-20-2021 Cholesterol in VLDL [Mass/Vol] 14 mg/dL 5-40 [facility] Work Phone: Serum or plasma creatinine m easurement (mass/volume)on 07-20-2021 Creatinine [Mass/Vol] 0.79 mg/dL 0.70-1.30 [facility] Work Phone: Comment on above: The validity of the calculated GFR & GFRAA in patients over 70 years has not been determined. Clinical correlation is essential. Serum or plasma low density lipoprotein (LDL) cholesterol measurement (mass/volume)on 07-20-2021 Cholesterol in LDL [Mass/Vol] 54 mg/dL 0-130 [facility] Work Phone: Serum or plasma urea nitroge n measurement (mass/volume)on 07-20-2021 Urea nitrogen [Mass/Vol] 9 mg/dL 7-18 [facility] Work Phone: Thin prep Papanicolaou smear with manual screeningon 07-20-2021 Thin prep Papanicolaou smear with manual screening 29 U/L 15-37 [facility] Work Phone: Thin prep Papanicolaou smear with manual screening 6 5-15 [facility] Work Phone: Whole blood hemoglobin A1c/t otal hemoglobin ratio (mass fraction)on 07-20-2021 HbA1c (Bld) [Mass fraction] 5.5 % 3.8-5.6 [facility] Work Phone: Comment on above: Normal < 5.7 % Predi abetic 5.7 - 6.4 % Diabetic >or= 6.5 % Please note range changes. Vital Signs Date Time Vital Sign Value Performing Clinician Facility 03-27-2024 08:26-0500 Body height 160.[address] Jayant Joy MD Work Phone: [facility] 03-27-2024 08:26-0500 Body mass index (BMI) [Ratio] 26.5 kg/m2 Dr. Jayant Joy MD Work Phone: [facility] 03-27-2024 08:26-0500 Body temperature 97.8 [degF] Dr. Jayant Joy MD Work Phone: [facility] 03-27-2024 08:26-0500 Body weight 68.[address] Jayant Joy MD Work Phone: [facility] 03-27-2024 08:26-0500 Diastolic blood pressure 84 mm[Hg] Dr. Jayant Joy MD Work Phone: [facility] 03-27-2024 08:26-0500 Heart rate 85 /min Dr. Jayant Joy MD Work Phone: [facility] 03-27-2024 08:26-0500 Respiratory rate 16 /min Dr. Jayant Joy MD Work Phone: [facility] 03-27-2024 08:26-0500 SaO2% (BldA) [Mass fraction] 99 % Dr. Jayant Joy MD Work Phone: [facility] 03-27-2024 08:26-0500 Systolic blood pressure 142 mm[Hg] Dr. Jayant Joy MD Work Phone: [facility] 08-29-2022 08:02-0400 Body temperature 96.91 [degF] Hanane SIMPSON Work Phone: [facility] 08-29-2022 08:02-0400 Body weight 67.13 kg Krislyn Aberegg PA Work Phone: [facility] 08-29-2022 08:02-0400 Diastolic blood pressure 72 mm[Hg] Krislyn Aberegg PA Work Phone: [facility] 08-29-2022 08:02-0400 Heart rate 84 /min Krislyn Aberegg PA Work Phone: [facility] 08-29-2022 08:02-0400 Respiratory rate 16 /min Krislyn Aberegg PA Work Phone: [facility] 08-29-2022 08:02-0400 SaO2% (BldA) [Mass fraction] 98 % Krislyn Aberegg PA Work Phone: [facility] 08-29-2022 08:02-0400 Systolic blood pressure 122 mm[Hg] Krislyn Aberegg PA Work Phone: [facility] 08-31-2021 10:23-0400 Body temperature 97 [degF] [facility] Work Phone: [facility] Work Phone: 08-31-2021 10:23-0400 Diastolic blood pressure 90 mm[Hg] [facility] Work Phone: [facility] Work Phone: 08-31-2021 10:23-0400 Heart rate 80 /min [facility] Work Phone: [facility] Work Phone: 08-31-2021 10:23-0400 Respiratory rate 18 /min [facility] Work Phone: [facility] Work Phone: 08-31-2021 10:23-0400 SaO2% (BldA) [Mass fraction] 100 % [facility] Work Phone: [facility] Work Phone: 08-31-2021 10:23-0400 Systolic blood pressure 148 mm[Hg] [facility] Work Phone: [facility] Work Phone: 08-31-2021 10:05-0400 Inhaled oxygen flow rate 2 L/min [facility] Work Phone: [facility] Work Phone: 08-31-2021 08:41-0400 Body height 160.02 cm [facility] Work Phone: [facility] Work Phone: 08-31-2021 08:41-0400 Body mass index (BMI) [Ratio] 25.4 kg/m2 [facility] Work Phone: [facility] Work Phone: 08-31-2021 08:41-0400 Body weight 65.3 kg [facility] Work Phone: [facility] Work Phone: 07-27-2021 13:54-0400 Body mass index (BMI) [Ratio] 26.1 kg/m2 [facility] Work Phone: [facility] Work Phone: 07-27-2021 13:54-0400 Body temperature 98.2 [degF] [facility] Work Phone: [facility] Work Phone: 07-27-2021 13:54-0400 Body weight 66.79 kg [facility] Work Phone: [facility] Work Phone: 07-27-2021 13:54-0400 Diastolic blood pressure 79 mm[Hg] [facility] Work Phone: [facility] Work Phone: 07-27-2021 13:54-0400 Heart rate 99 /min [facility] Work Phone: [facility] Work Phone: 07-27-2021 13:54-0400 Respiratory rate 18 /min [facility] Work Phone: [facility] Work Phone: 07-27-2021 13:54-0400 SaO2% (BldA) [Mass fraction] 97 % [facility] Work Phone: [facility] Work Phone: 07-27-2021 13:54-0400 Systolic blood pressure 134 mm[Hg] [facility] Work Phone: [facility] Work Phone: Encounters Encounter Date Encounter Type Care Provider Facility Start: 06-13-2024 End: 06-13-[address] Jayant Joy MD Work Phone: [facility] Work Phone: Start: 06-13-2024 End: 06-13-[address] Jayant Joy MD -[facility] Work Phone: Start: 06-13-2024 End: 06-13-2024 ambulatory Jayant Joy Facility:[facility] Start: 03-27-2024 End: 03-27-2024 ambulatory Jayant Joy Facility:[facility] Start: 03-27-2024 End: 03-27-[address] Pete Rahman MD -[facility] Work Phone: Start: 01-24-2024 End: 01-24-2024 ambulatory Jayant Joy Facility:[facility] Start: 06-02-2023 End: 06-02-2023 ambulatory [facility] Work Phone: Start: 06-02-2023 End: 06-02-2023 Patient encounter procedure [facility] Start: 12-23-2022 End: 12-23-2022 ambulatory [facility] Work Phone: Start: 12-23-2022 End: 12-23-2022 Patient encounter procedure [facility] Work Phone: Start: 11-17-2022 End: 11-17-2022 ambulatory [facility] Work Phone: Start: 11-17-2022 End: 11-17-2022 Patient encounter procedure [facility] [place] Work Phone: Start: 08-29-2022 End: 08-29-2022 ambulatory JAYANT JOY Facility:[facility] Start: 08-29-2022 End: 08-29-2022 Patient encounter procedure Hanane SIMPSON Work Phone: [facility] Comment on above: COVID-19 (Primary Dx ) Start: 08-31-2021 Non-patient / Non-visit [facility] Work Phone: [facility] Start: 08-31-2021 End: 08-31-2021 Admission to same day surgery center [facility] Work Phone: [facility] Start: 08-27-2021 Patient encounter procedure [facility] Work Phone: [facility] Start: 07-27-2021 End: 07-27-2021 Patient encounter procedure [facility] Work Phone: [facility] Start: 07-20-2021 End: 07-20-2021 [facility] Date Procedure Procedure Detail Performing Clinician Start: 06-13-2024 Urine microalbumin/creatinine ratio measurement Dr. Jayant Joy MD Work Phone: Start: 08-31-2021 Colonoscopy [facility] Work Phone: Plan of Treatment Date Care Activity Detail Author Start: 10-07-2022 Influenza vaccination INFLUENZA (#1) [facility] Start: 02-06-2022 DEPRESSION ASSESSMENT DEPRESSION ASSESSMENT [facility] Start: 08-31-2021 Patient discharge [facility] Work Phone: Start: 2020 PROSTATE CANCER SCREENING DISCUSSION PROSTATE CANCER SCREENING DISCUSSION [facility] Start: 12-07-2015 SHINGRIX VACCINE (1 of 2) SHINGRIX VACCINE (1 of 2) [facility] Start: 10-08-2014 LIPID SCREEN LIPID SCREEN [facility] Start: 10-08-2012 DIABETES SCREEN DIABETES SCREEN [facility] Start: 2010 COLOGUARD (FIT-DNA) COLOGUARD (FIT-DNA) [facility] Start: 2010 Colonoscopy COLONOSCOPY [facility] Start: 2010 COLORECTAL CANCER SCREENING COLORECTAL CANCER SCREENING [facility] Start: [address] COLONOGRAPHY [facility] Start: 2010 FECAL OCCULT BLOOD FECAL OCCULT BLOOD [facility] Start: 2010 SIGMOIDOSCOPY SIGMOIDOSCOPY [facility] Start: 02-07-1990 Urine microalbumin profile DTAP,TDAP,TD (1 - Tdap) [facility] Start: 12-07-1983 ANNUAL PCP TEAM CHRONIC DISEASE VISIT ANNUAL PCP TEAM CHRONIC DISEASE VISIT [facility] Start: 12-07-1983 HEPATITIS C SCREENING HEPATITIS C SCREENING [facility] Start: 12-07-1983 HIV SCREENING HIV SCREENING [facility] Start: 1965 HEPATITIS B (1 of 3 - 3-dose series) HEPATITIS B (1 of 3 - 3-dose series) [facility] Patient referral [facility] Work Phone: Immunizations Immunization Date Immunization Notes Care Provider Fa cris 11-12-2018 influenza, injectabl e, quadrivalent, preservative free [facility] 11-12-2018 influenza, seasonal, injectable [facility] Work Phone: 11-25-2008 influenza virus vacc ine, unspecified formulation Hanane Cruz PA Work Phone: [facility] 12-24-2007 influenza virus vacc ine, unspecified formulation Hanane Cruz PA Work Phone: [facility] Work Phone: 12-18-2006 influenza virus vacc ine, unspecified formulation Hanane SIMPSON Work Phone: [facility] Work Phone: 04-05-2005 pneumococcal polysaccharide vaccine, 23 valent Hanane SIMPSON Work Phone: [facility] Work Phone: 12-02-2004 influenza virus vacc ine, unspecified formulation Hanane SIMPSON Work Phone: [facility] Work Phone: 02-06-1990 tetanus and diphther ia toxoids, adsorbed, preservative free, for adult use (2 Lf of tetanus toxoid and 2 Lf of diphtheria toxoid) Hanane SIMPSON Work Phone: [facility] Work Phone: Payers Date Payer Category Payer Self-pay [id number] 2024 Unknown [id number] 2018 Medicare [facility] MEDICARE MYC ARE [facility] MEDICARE [id number] 2018-Present [phone] [address] [place] [address] Medicare [id number] 2016 Medicaid [facility] MEDICAID MYC ARE [facility] MEDICAID [id number] 2016-Present [phone] [address] [place] [address] Medicaid [id number] 2016 Unknown [id number] Unknown [id number] Unknown [id number] Social History Date Type Detail Facility Start: 09-21-2020 End: 08-26-2021 Tobacco smoking status NJIS Unknown if ever smoked [facility] Start: 08-13-2019 None [facility] Start: 08-13-2019 - [facility] Start: 08-13-2019 Non-smoker [facility] Start: 1965 Sex Assigned At Male W [facility] Start: 08-29-2022 End: 03-27-2024 Tobacco smoking status NHIS Ex-smoker [facility] Work Phone: End: 01-21-1994 History of tobacco use Current smoker [facility] Work Phone: End: 01-21-1994 History of tobacco use Cigarette Smoker [facility] Work Phone: Start: 08-29-2022 Tobacco use and exposure Smokeless tobacco non-user [facility] Work Phone: Start: 08-29-2022 Alcohol intake Current non-dr expressive therapist of alcohol (finding) [facility] Start: 08-29-2022 History of Social function [facility] Start: 08-29-2022 Tobacco use panel 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 Author Type: Physician Day Care Director Type: Progress Notes Filed: 08/29/2022 8:20 AM Note Text: This note was created using NoteWriter. Subjective Kj Delcid is a 56 year old male. HPI 56-year-old male presents for COVID concern. Patient [place] with his caregiver [facility] [place]. Patient has had sore throat, congestion, cough since Monday per the caregiver. Patient states he has had cough for longer than that. No fevers. No vomiting or diarrhea. Tested him for COVID yesterday and it was positive. Caregiver states that he needed to be seen since he tested positive for COVID. They have not given him any medications for his symptoms. They need prescriptions for any medication for symptoms. Patient is still able to eat and drink. No chest pain or shortness of breath. No other complaints. PAST MEDICAL HISTORY Diagnosis Date Abdominal pain, epigastric ALLERGIC RHINITIS NOS 06/14/2005 COMMON MIGRAINE W/O MENTN INTRACT 04/05/2005 CONSTIPATION NOS 04/05/2005 DISEASE OF PHARYNX NEC 04/05/2005 Dizziness and giddiness Esophageal reflux HISTORY SEIZURE Hypothyroidism 01/19/2009 Other diseases of pharynx, not elsewhere classified(478.29) Schizoaffective disorder, unspecified condition Unspecified asthma(493.90) Unspecified essential hypertension Unspecified intellectual disabilities PAST SURGICAL HISTORY Procedure Laterality Date ESOPHAGOGASTRODUODENOSCOPY TRANSORAL DIAGNOSTIC 11/24/04 EGD PULMONARY FUNCTION TEST 06/16/03 ALLERGIES Penicillins MEDICATIONS divalproex ER (DEPAKOTE ER) 250 mg 24 hr tablet levothyroxine (SYNTHROID) 112 mcg tablet aspirin 81 mg chewable tablet Take 81 mg by mouth once daily. Cholecalciferol, Vitamin D3, (VITAMIN D-3) 2,000 unit cap Take by mouth. propranolol (INDERAL) 20 mg tablet polyethylene glycol 3350 (MIRALAX, GLYCOLAX) 17 gram/dose powder QUEtiapine (SEROQUEL) 300 mg tablet PROCTOSOL HC 2.5 % rectal cream FLOVENT HFA 220 mcg/actuation inhaler divalproex ER (DEPAKOTE ER) 500 mg 24 hr tablet rosuvastatin (CRESTOR) 10 mg ORAL tablet Take 1 tablet by mouth daily at bedtime. docusate sodium (COLACE) 100 mg ORAL capsule Take one(1) tablet daily. May increase t twice daily if needed to prevent constipation diaper,brief,adult,disposable(ADULT BRIEFS - LARGE) as needed usually 5 daily/ urinary incontinence DX: 788.30/434.91 VITAMIN E 400 UNIT CAP soft gel one capusule daily quetiapine (SEROQUEL) 100 mg ORAL Tab 200 mg twice daily benztropine 1 mg ORAL Tab Take one(1) tablet two(2) times daily. fluphenazine deconoate 25 mg/mL INJECTION Soln every two(2) weeks (tcc) sertraline (ZOLOFT) 100 mg ORAL Tab Take one(1) tablet daily. sertraline (ZOLOFT) 50 mg ORAL Tab Take one(1) tablet daily. COMPOUNDED PRESCRIPTION Prevail Incontinent Product -diaper dx. incontinence TYLENOL EXTRA STRENGTH 500 MG TAB Take two(2) tablets every four(4) to six(6) hours as needed. acetaminophen (TYLENOL EXTRA STRENGTH) 500 mg tablet Take 2 tablets by mouth every 8 hours as needed for pain. guaiFENesin (MUCINEX) 600 mg 12 hr tablet Take 1 tablet by mouth twice daily. lisinopril (ZESTRIL, PRINIVIL) 5 mg tablet clarithromycin (BIAXIN) 500 mg ORAL Tab Take 1 tablet by mouth every 12 hours. (Patient not taking: Reported on 05/03/2018 ) albuterol HFA (PROVENTIL HFA) 90 mcg/Actuation INHALATION inhaler Inhale 2 Puffs as instructed every 4 hours as needed. (Patient not taking: Reported on 05/03/2018 ) phenytoin SR (DILANTIN) 100 mg ORAL ER capsule Take 1 capsule by mouth three times daily. (Patient not taking: Reported on 05/03/2018 ) fluticasone (FLONASE) 50 mcg/Actuation NASAL nasal spray Two sprays each nostril once daily for allergy symptoms. (Patient not taking: No sig reported) divalproex sodium(DEPAKOTE 500 MG TAB) 1 tablets twice daily (Patient not taking: No sig reported) PROPRANOLOL 10 MG TAB one tablet po three times daily (Patient not taking: No sig reported) levothyroxine sodium(SYNTHROID 75 MCG TAB) Take one(1) tablet daily. (Patient not taking: No sig reported) LORAZEPAM 0.5 MG TAB Take one(1) tablet three times daily and may repeat as needed for anxiety. FAMILY HISTORY Problem Relation Age of Onset Diabetes Mother Hypertension Mother Hypertension Father hiatal hernia Diabetes Maternal Grandmother Diabetes Maternal Grandfather Social History Tobacco Use Smoking status: Former Types: Cigarettes Quit date: 01/21/1994 Years since quittin.6 Smokeless tobacco: Never Substance Use Topics Alcohol use: No Review of Systems Constitutional: Negative for chills and fever. HENT: Positive for congestion and sore throat. Respiratory: Positive for cough. Negative for shortness of breath. Gastrointestinal: Negative for diarrhea and vomiting. Objective BP 122/72 Pulse 84 Temp 36.1 ?C (96.9 ?F) Resp 16 Wt 67.1 kg (148 lb) SpO2 98% (more content not included)... [facility] History of Present illness Narrative 08-29-2022 Hanane Cruz PA - 08/29/2022 8:15 AM EDT Note Date & Type Note Facility 08-29-2022 History of Presen t illness Narrative This note was created using Etelos. Subjective Kj Delcid is a 56 year old male. HPI 56-year-old male presents for COVID concern. Patient presents with his caregiver from a penitentiary. Patient has had sore throat, congestion, cough since Monday per the caregiver. Patient states he has had cough for longer than that. No fevers. No vomiting or diarrhea. Tested him for COVID yesterday and it was positive. Caregiver states that he needed to be seen since he tested positive for COVID. They have not given him any medications for his symptoms. They need prescriptions for any medication for symptoms. Patient is still able to eat and drink. No chest pain or shortness of breath. No other complaints. PAST MEDICAL HISTORY Diagnosis Date Abdominal pain, epigastric ALLERGIC RHINITIS NOS 06/14/2005 COMMON MIGRAINE W/O MENTN INTRACT 04/05/2005 CONSTIPATION NOS 04/05/2005 DISEASE OF PHARYNX NEC 04/05/2005 Dizziness and giddiness Esophageal reflux HISTORY SEIZURE Hypothyroidism 01/19/2009 Other diseases of pharynx, not elsewhere classified(478.29) Schizoaffective disorder, unspecified condition Unspecified asthma(493.90) Unspecified essential hypertension Unspecified intellectual disabilities PAST SURGICAL HISTORY Procedure Laterality Date ESOPHAGOGASTRODUODENOSCOPY TRANSORAL DIAGNOSTIC 11/24/04 EGD PULMONARY FUNCTION TEST 06/16/03 ALLERGIES Penicillins MEDICATIONS divalproex ER (DEPAKOTE ER) 250 mg 24 hr tablet levothyroxine (SYNTHROID) 112 mcg tablet aspirin 81 mg chewable tablet Take 81 mg by mouth once daily. Cholecalciferol, Vitamin D3, (VITAMIN D-3) 2,000 unit cap Take by mouth. propranolol (INDERAL) 20 mg tablet polyethylene glycol 3350 (MIRALAX, GLYCOLAX) 17 gram/dose powder QUEtiapine (SEROQUEL) 300 mg tablet PROCTOSOL HC 2.5 % rectal cream FLOVENT HFA 220 mcg/actuation inhaler divalproex ER (DEPAKOTE ER) 500 mg 24 hr tablet rosuvastatin (CRESTOR) 10 mg ORAL tablet Take 1 tablet by mouth daily at bedtime. docusate sodium (COLACE) 100 mg ORAL capsule Take one(1) tablet daily. May increase t twice daily if needed to prevent constipation diaper,brief,adult,disposable(ADULT BRIEFS - LARGE) as needed usually 5 daily/ urinary incontinence DX: 788.30/434.91 VITAMIN E 400 UNIT CAP soft gel one capusule daily quetiapine (SEROQUEL) 100 mg ORAL Tab 200 mg twice daily benztropine 1 mg ORAL Tab Take one(1) tablet two(2) times daily. fluphenazine deconoate 25 mg/mL INJECTION Soln every two(2) weeks (tcc) sertraline (ZOLOFT) 100 mg ORAL Tab Take one(1) tablet daily. sertraline (ZOLOFT) 50 mg ORAL Tab Take one(1) tablet daily. COMPOUNDED PRESCRIPTION Prevail Incontinent Product -diaper dx. incontinence TYLENOL EXTRA STRENGTH 500 MG TAB Take two(2) tablets every four(4) to six(6) hours as needed. acetaminophen (TYLENOL EXTRA STRENGTH) 500 mg tablet Take 2 tablets by mouth every 8 hours as needed for pain. guaiFENesin (MUCINEX) 600 mg 12 hr tablet Take 1 tablet by mouth twice daily. lisinopril (ZESTRIL, PRINIVIL) 5 mg tablet clarithromycin (BIAXIN) 500 mg ORAL Tab Take 1 tablet by mouth every 12 hours. (Patient not taking: Reported on 05/03/2018 ) albuterol HFA (PROVENTIL HFA) 90 mcg/Actuation INHALATION inhaler Inhale 2 Puffs as instructed every 4 hours as needed. (Patient not taking: Reported on 05/03/2018 ) phenytoin SR (DILANTIN) 100 mg ORAL ER capsule Take 1 capsule by mouth three times daily. (Patient not taking: Reported on 05/03/2018 ) fluticasone (FLONASE) 50 mcg/Actuation NASAL nasal spray Two sprays each nostril once daily for allergy symptoms. (Patient not taking: No sig reported) divalproex sodium(DEPAKOTE 500 MG TAB) 1 tablets twice daily (Patient not taking: No sig reported) PROPRANOLOL 10 MG TAB one tablet po three times daily (Patient not taking: No sig reported) levothyroxine sodium(SYNTHROID 75 MCG TAB) Take one(1) tablet daily. (Patient not taking: No sig reported) LORAZEPAM 0.5 MG TAB Take one(1) tablet three times daily and may repeat as needed for anxiety. FAMILY HISTORY Problem Relation Age of Onset Diabetes Mother Hypertension Mother Hypertension Father hiatal hernia Diabetes Maternal Grandmother Diabetes Maternal Grandfather Social History Tobacco Use Smoking status: Former Types: Cigarettes Quit date: 01/21/1994 Years since quittin.6 Smokeless tobacco: Never Substance Use Topics Alcohol use: No Review of Systems Constitutional: Negative for chills and fever. HENT: Positive for congestion and sore throat. Respiratory: Positive for cough. Negative for shortness of breath. Gastrointestinal: Negative for diarrhea and vomiting. Objective BP 122/72 Pulse 84 Temp 36.1 C (96.9 F) Resp 16 Wt 67.1 kg (148 lb) SpO2 98% Physical Exam Vitals and nursing note reviewed. Constitutional: General: He is not in acute distress. Appearance: Normal appearance. He is not toxic-appearing. HENT: Nose: Congestion present. Mouth/Throat: Mouth: Mucous membranes are moist. Pharynx: No oropharyngeal exudate or posterior oropharyngeal erythema. Eyes: Conjunctiva/sclera: Conjunctivae normal. Cardiovascular: Rate and Rhythm: Normal rate and regular rhythm. Pulmonary: Effort: Pulmonary effort is normal. Breath sounds: Normal breath sounds. Skin: General: Skin is warm and dry. Neurological: Mental Status: He is alert. Assessment and Plan ASSESSMENT/PLAN: 1. COVID-19 - ICD9: 079.89, ICD10: U07.1 -Brought home testing. Discussed we can do a confirmatory PCR, but it is not required. Caregiver and patient declined. -Discussed antiviral. Caregiver states symptoms started Monday, patient states symptoms started prior to that. Patient is on day 4 of symptoms if started Monday. Possibly in the viral window? He is not hypoxic. No acute distress. We do not have updated med list and caregiver did not bring it. Discussed with patient and caregiver possibility of doing molnupiravir, but since we are unsure exactly when symptoms started, unsure this would be of benefit. They declined antiviral at this point. Would just like symptomatic treatment. -Rx for guaifenesin. Rx for Tylenol. -Advised if any new or worsening symptoms, return, follow-up with PCP, or go to ER. -Discussed isolation. And masking. Diagnosis and treatment plan were discussed and questions were answered to the patient's satisfaction. Pt acknowledged understanding of concepts and follow up plan. Specific signs and symptoms that would indicate the need for higher level of care were discussed in detail warranting prompt ER evaluation. TAN Dawkins documented in this encounter [facility] Evaluation note Note Date & Type Note Facility Evaluation note No assessment information availa ble [facility] Work Phone: Evaluation note Note Date & Type Note Facility Evaluation note Diagnosis Onset Date Constipation acute Esophageal dysphagia acute Personal history of colonic polyps acute Zenker diverticulum acute [facility] Work Phone: Evaluation note Note Date & Type Note Facility Evaluation note Diagnosis COVID-19- Primary documented in this encounter [facility] Reason for referral (narrative) Note Date & Type Note Facility Reason for referral (narrative) No reason for referral information available [facility] Work Phone: Family History No Family History Records Found Relationship Condition Age at Onset Recorded Date/T luis grandmother Hypertension Unknown Diabetes mellitus Unknown brother Seizure Unknown mother Hypertension Unknown father Hypertension Unknown Advance Directives No Advanced Directives Records Found Advance Directive Response Recorded Date/ Time Living Will No September 21 1 2:53pm Power of Foundry Worker No September 21 021 2:53pm Advance Directive Response Recorded Date/ Time Living Will No August 26, 2021 2:40pm Power of Foundry Worker No August 26 2 2:40pm Advance Directive Response Recorded Date/ Time Living Will No August 26, 2021 1:40pm Power of Foundry Worker No August 26 2 1:40pm Chief Complaint and Reason for Visit Chief Complaint EGD DX GERD & Swallo wing Issues Reason for Visit Constipation Esophageal dysphagia Personal history of colonic polyps Zenker diverticulum Chief Complaint Admit Date COGNITIVE CHANGES March 27, 2024 8:19am Reason for Visit Admit Date Cerebral palsy March 27, 2024 8:19am Tremor due to disorder of central nervou s system March 27, 2024 8:19am Memory change March 27, 2024 8:19am Summary Purpose Additional Source Comments Goals (unrecognized section and content) Goals may be documented in a n alternate sectionGoals may be documented in an alternate sectionGoals may be documented in an alternate sectionGoals may be documented in an alternate sectionGoals may be documented in an alternate section (unrecognized sect ion and content) No Status Records FoundNo Status Records Found INFORMATION SOURCE (unrecogn ized section and content) DATE CREATED AUTHOR 08/29/2022 [facility] DATE CREATED AUTHOR AUTHOR'S ORGANIZ ATION 08/29/2024 [facility] Source Comments (unrecognize d section and content) In the event this informatio n is protected by the Federal Confidentiality of Alcohol and Drug Abuse Patient Records regulations: The Federal rules restrict any use of the information to criminally investigate or prosecute any alcohol or drug abuse patient.[facility] Reason for Visit (unrecogniz ed section and content) Reason Comments Cough headache and sore th roat x 3 days, + covid test yesterday Care Teams (unrecognized sec tion and content) [employer] Relationship Specialty Start Date End Date Jayant Joy MD PCP - General Family Medicine 03/11/16 Team Status: Active Member Role Status Dates Dr. Jayant Jyo MD Family Provider Active Dr. Jayant Joy MD Primary Care Provider Active Team Status: Inactive Member Role Status Dates Dr. Jayant Joy MD Primary Care Provi tej, Attending Provider, Referring Provider Active Team Status: Inactive Member Role Status Dates Dr. Jayant Joy MD Primary Care Provider Active Dr. Jessie Vasquez MD Attending Provider, Referring P ortiz Active Team Status: Inactive Member Role Status Dates Dr. Jayant Joy MD Primary Care Provider, Attending Provider Active Team Status: Inactive Member Role Status Dates Dr. Jayant Joy MD Primary Care Provider Active Start: March 27, 2024 End: March 27, 2024 Dr. Jayant Joy MD Referring Provider Active Start: March 27, 2024 End: March 27, 2024 Dr. Pete Rahman MD Attending Provider Active Start: March 27, 2024 End: March 27, 2024 Team Status: Inactive Member Role Status Dates Dr. Jayant Joy MD Primary Care Provider Active Start: June 13, 2024 End: June 13, 2024 Dr. Jayant Joy MD Attending Provider Active Start: June 13, 2024 End: June 13, 2024 Dr. Jayant Joy MD Referring Provider Active Start: June 13, 2024 End: June 13, 2024 FOR RECORDS PERTAINING TO PATIENTS WHO ARE OR HAVE BEEN ENROLLED IN A CHEMICAL DEPENDENCY/SUBSTANCEABUSE PROGRAM, SOME INFORMATION MAY BE OMITTED. This clinical summary was aggregated from multiple sources. Caution should be exercised in using it in the provision of clinical care. This summary normalizes information from multiple sources, and as a consequence, information in this document may materially change the coding, format and clinical context of patient data. In addition, data may be omitted in some cases. CLINICAL DECISIONS SHOULD BE BASED ON THE PRIMARY CLINICAL RECORDS. [employer] provides no warranty or guarantee of the accuracy or completeness of information in this document.
== END | disposition home or self-care (01) ==
LOC: MTLAB 07:50
PROVIDERS: PCP Family Medicine; Referring Provider Psychiatry & Neurology Psychiatry; Visit Provider Psychiatry & Neurology Psychiatry
DX: Z79.899 Other long term (current) drug therapy (principal)
CPT/HCPCS: 36415; 80053; 80164; 82140; 85025

== ENCOUNTER → 2024-12-30 | Outpatient (CLI) | payer MEDICARE, MEDICAID, SELFPAY ==
--- NOTE | 2024-12-30 13:08 | RAD_ITS ---
PROCEDURE: CHEST PA AND LATERAL 12/30/2024 REASON FOR EXAM: COUGH TECHNIQUE: Procedure Code: RADCXR Modality: DX Procedure: CHEST PA AND LATERAL FINDINGS: No focal consolidation. Mild pulmonary vascular congestion. no pleural effusion or pneumothorax. Cardiac silhouette is within normal limits. No acute fractures. RAD/Chest PA and Lateral IMPRESSION: No focal consolidation. Mild pulmonary vascular congestion. Reading Location: [id number]
[2024-12-30 15:00] LABS: Hematocrit 36.2 % (40-54); Hemoglobin 13.3 g/dL (13.0-16.5); Immature Granulocytes Count 0.010 X10^3/uL (0.0-0.0); Mean Corp Hgb Conc 36.7 g/dL (32-36); Mean Corpuscular Volume 73.7 fL (80-94); Mean Platelet Vol. 10.2 fl (6.2-12.0); NRBC Flagged by Analyzer 0 % (0-5); Platelet Count 270 K/mm3 (150-450); RBC Distribution Width CV 13.9 % (11.6-14.6); RBC Distribution Width SD 37.2 fl (35.1-43.9); Red Blood Count 4.91 M/mm3 (4.6-6.2); White Blood Count 4.0 K/mm3 (4.4-11.0)
[2024-12-30 15:26] LABS: Anion Gap 12 (5-15); BUN 5 mg/dL (4-19); BUN/Creat Ratio 6.0 RATIO (10-20); Calcium,Total 9.0 mg/dL (7.6-11.0); Carbon Dioxide 25.0 mmol/L (21.0-32.0); Chloride 93 mmol/L (98-108); Glucose 100 mg/dL (70-99); Potassium 4.3 mmol/L (3.3-5.1)
== END | disposition home or self-care (01) ==
LOC: MTLAB 13:08
PROVIDERS: PCP Family Medicine; Referring Provider Family Medicine; Visit Provider Family Medicine
DX: E87.1 Hypo-osmolality and hyponatremia (principal); R05.9 Cough, unspecified
CPT/HCPCS: 36415; 71046; 80048; 84443; 85025

== ENCOUNTER → 2024-12-31 | Outpatient (CLI) | payer MEDICARE, MEDICAID, SELFPAY ==
[2024-12-31 17:13] LABS: Osmolality, Serum 271 mOsm/KG (275-295)
== END | disposition home or self-care (01) ==
LOC: MTLAB 11:10
PROVIDERS: PCP Family Medicine; Referring Provider Family Medicine; Visit Provider Family Medicine
DX: E87.1 Hypo-osmolality and hyponatremia (principal)
CPT/HCPCS: 36415; 83930; 84443

== ENCOUNTER → 2025-02-03 | Outpatient (CLI) | payer MEDICARE, MEDICAID, SELFPAY ==
--- OUTSIDE RECORDS SUMMARY | 2025-02-03 07:31 | XMS RPT_ITS | CCD ---
Author Organization [facility] Care Team Providers Care Board Certified Arts Therapist Name Role Phone [facility], Sola Dillon Primary Care Pro vider Candida, Dr. Lee Villalobos Attending Provider Jayant Joy Referring Provider Unavailable Juwan, Dr. Saba Primary Care Provider Cebuzion, Dr. Lee Villalobos Referring Provider Cecrista, Dr. Lee Villalobos Other Provider JAYANT JOY Primary Care Unavailable Juwan ZAMORA, Jayant Love Primary Care Provider Juwan ZAMORA, Dr. Saba Primary Care Provider Juwan ZAMORA, Dr. Saba Referring Provider Lacey ZAMORA, Dr. Freeman Attending Provider Juwan ZAMORA, Dr. Saba Attending Provider Juwan ZAMORA, Dr. Saba Primary Care Physician Christina ZAMORA, Dr. Roman Attending Physician Christina ZAMORA, Dr. Roman Referring Provider Jessie Vasquez Referring Unavailable Jessie Vasquez Attending Unavailable Jayant Joy Primary Care Unavailable Juwan, Jayant Referring Unavailable Juwan, Jayant Attending Unavailable Juwan, Jayant Primary Care Unavailable Juwan, Jayant Attending Unavailable Juwan, Jyaant Primary Care Unavailable Juwan, Jayant Referring Unavailable Juwan, Jayant Referring Unavailable Juwan, Jayant Primary Care Unavailable Pete Rahman Attending Unavailable Allergies Allergy Classification Reported Allergen(s) Allergy Type Date of Onset Reaction(s) Facility (2 sources) Bee/Wasp/Ant venom Propensity to adverse reactions 0 Unknown, SORENESS [facility] Work Phone: (10 sources) Penicillins; Translations: [PENICILLINS] Allergy to substance 7 Other: See Comments [facility] (7 sources) Pollen Propensity to adverse reactions 0 Unknown [facility] (5 sources) bee venom protein (honey bee) Propensity to adverse reactions 2 Other [facility] Comment on above: SORENESS (1 source) Pollen Drug allergy (disorder) 5 [facility] (1 source) bee venom protein (honey bee) Drug allergy (disorder) 5 [facility] Medications Current Medications Medication Drug Class(es) [...] every four(4) to six(6) hours as needed. [id number] 200 actuat albuter ol 0.09 mg/actuat metered dose inhaler (12 sources) beta2-Adrenergic Agonist Start: 03-27-2024 Start: 09-21-2020 take 1 puff(s) by in [...] 02, 2017 12:00am May 01, 2019 9:29am sob Start: 05-02-2017 End: 05-01-2019 take 1 puff(s) [...] as needed. aspirin 81 mg chewable tablet (8 sources) Platelet Aggregation Inhibitor, Nonsteroidal Anti-inflammatory Drug Start: 05-05-2013 take 1 tablet by mouth once daily Comment on above: Take 81 mg by mouth once daily. benztropine mesylate 1 mg oral tablet (20 sources) Anticholinergic, Antihistamine Start: 03-27-2024 take 1 tablet by mouth three times daily Start: 08-26-2021 End: 03-27-2024 take 1 tablet by mouth once daily Benztropine 1 mg Tablet Discontinued 1 mg PO DAILY August 26, 2021 12:00am March 27, 2024 9:25am Start: 08-13-2019 End: 07-27-2021 take 1 tablet by mouth at breakfast Benztropine 1 MG tablet Discontinued 1 mg PO WITH BREAKFAST August 13, 2019 12:00am July 27, 2021 1:51pm seizures Start: 05-05-2013 End: 05-01-2019 take 1 mg [...] t wo(2) times daily. cholecalciferol 0.025 mg ora l tablet (8 sources) Vitamin D Start: 04-17-2019 take 3 tablets by mouth once daily in the morning Start: 04-17-2019 take 3000 [IU] by mo ut once daily in the morning Cholecalciferol (Vitamin D3) Active 3000 UNIT PO DAILY April 17, 2019 12:00am takes in the morning Cholecalciferol, Vitamin D3, (VITAMIN D-3) 2,000 unit cap Take by mouth. 0 Active Comment on above: Take by mouth. docusate sodium 100 mg oral capsule (14 sources) Start: 08-26-2021 take 1 capsule by mo ut once daily Start: 02-01-2010 End: 05-01-2019 take 1 capsule by mouth once daily Docusate Sodium 100 MG capsule Discontinued 100 mg PO DAILY May 05, 2013 12:00am May 01, 2019 9:46am Comment on above: Take one(1) tablet d aily. May increase t twice daily if needed to prevent constipation [id number] 0.3 ml EPINEPHrine 1 mg/ml auto-injector (3 sources) alpha-Adrenergic Agonist, beta-Adrenergic Agonist, Catecholamine Start: 03-27-2024 Start: 05-01-2019 Epinephrine (E pipen) 0.3 mg/0.3 mL auto-injector Active 0.3 MG IM ONCE May 01, 2019 12:00am as a single dose fluPHENAZine decanoate 25 mg/ml injectable solution (10 sources) Phenothiazine Start: 03-27-2024 inject 25 mg by intramuscular injection every other week Start: 04-17-2019 End: 07-27-2021 Fluphenazine Decanoate 25 MG /ML solution Discontinued 25 mg IJ DIRECTED April 17, 2019 12:00am July 27, 2021 1:51pm mental health Start: 04-17-2019 End: 07-27-2021 Fluphenazine Decanoate Disco ntinued 25 MG IJ DIRECTED April 17, 2019 12:00am July 27, 2021 1:51pm Start: 06-09-2006 fluphenazine d econoate 25 mg/mL INJECTION Soln every two(2) weeks (tcc) 0 06/09/2006 Active Comment on above: every two(2) weeks ( tcc) 120 actuat fluticasone propi ginger 0.22 mg/actuat metered dose inhaler (7 sources) Corticosteroid Start: 03-27-2024 Start: 03-27-2024 take 50 ug nasal route once da clark Start: 05-02-2017 take 1 puff(s) by in [...] david th twice daily. hydrocortisone 25 mg/ml topi orion cream (10 sources) Corticosteroid Start: 03-27-2024 Start: 04-17-2019 End: 07-27-2021 Hydrocortisone 2.5% cream wi th perineal applicator Discontinued 1 NMA TP TWICE A DAY April 17, 2019 12:00am July 27, 2021 1:52pm hemmroids Start: 04-17-2019 End: 07-27-2021 Hydrocortisone Discontinued 1 APPLIC TP TWICE A DAY April 17, 2019 12:00am July 27, 2021 1:52pm Start: 01-26-2016 PROCTOSOL HC 2 .5 % rectal cream levothyroxine sodium 0.088 m g oral tablet (12 sources) l-Thyroxine Start: 03-27-2024 take 1 tablet by david th once daily Start: 08-14-2019 take 88 ug by mouth once daily Levothyroxine Active 88 MCG PO DAILY@0600 90 August 14, 2019 12:00am Start: 05-05-2013 End: 08-14-2019 take 1 tablet by mouth once daily in the morning Levothyroxine 112 MCG tablet Discontinued 112 ug PO DAILY May 05, 2013 12:00am August 14, 2019 2:34pm thyroid takes in the morning Start: 12-18-2008 levothyroxine sodium(SYNTHROID 75 MCG TAB) Indications: Unspecified hypothyroidism Take one(1) tablet daily. 30 11 12/18/2008 Active Comment on above: Take one(1) tablet d aily. lisinopril 5 mg oral tablet (8 sources) Angiotensin Converting Enzyme Inhibitor Start: 05-05-2013 take 1 tablet by mouth once daily in the morning metFORMIN hydrochloride 1000 mg oral tablet (20 sources) Biguanide Start: 05-01-2019 take 1 tablet by mouth twice daily in the morning Start: 05-01-2019 take 500 mg by mouth once daily in the morning Metformin Active 500 MG PO DAILY May 01, 2019 12:00am takes in the morning Start: 04-17-2019 End: 05-01-2019 take 2 tablets by mouth once daily Metformin 500 MG tablet Discontinued 1000 mg PO DAILY April 17, 2019 12:00am May 01, 2019 9:27am dm Start: 04-17-2019 End: 05-01-2019 take 1000 mg [...] omeprazole 20 mg delayed release oral capsule (6 sources) Proton Pump Inhibitor Start: 07-27-2021 take 1 capsule by mouth once daily polyethylene glycol 3350 78177 mg powder for oral solution (4 sources) Osmotic Laxative Start: 03-27-2024 take 17 g by mouth once daily as needed Start: 05-05-2013 polyethylene g lycol 3350 (MIRALAX, GLYCOLAX) 17 gram/dose powder propranolol hydrochloride 20 mg oral tablet (15 sources) beta-Adrenergic Melina Start: 08-26-2021 take 1 tablet by mouth twice daily Start: 05-05-2013 End: 07-27-2021 take 1 tablet by mouth twice daily Propranolol 20 MG tablet Discontinued 20 mg PO TWICE A DAY May 05, 2013 12:00am July 27, 2021 1:50pm blood pressure Start: 12-18-2008 take 1 tablet by david th three times daily PROPRANOLOL 10 MG TAB one tablet po three times daily 90 6 12/18/2008 Active Comment on above: one tablet po three times daily QUEtiapine 300 mg oral tablet (15 sources) Atypical Antipsychotic Start: 03-09-2016 take 1 tablet by mouth at bedtime Start: 05-05-2013 End: 07-27-2021 take 1 tablet by mouth every twenty-four hours at bedtime Quetiapine 300 MG tablet extended release 24 hr Discontinued 300 mg PO AT BEDTIME May 05, 2013 12:00am July 27, 2021 1:50pm sleep Start: 12-18-2006 take 2 tablets by mo uth twice daily quetiapine (SEROQUEL) 100 mg ORAL Tab Indications: Bipolar I disorder, most recent episode (or current) manic, severe, specified as with psychotic behavior 200 mg twice daily 0 12/18/2006 Active Comment on above: 200 mg twice daily rosuvastatin calcium 10 mg oral tablet (8 sources) HMG-CoA Reductase Inhibitor Start: 06-21-2010 take 1 tablet by mouth at bedtime Comment on above: Take 1 tablet by david th daily at bedtime. sertraline 100 mg oral tablet (11 sources) Serotonin Reuptake Inhibitor Start: 03-27-2024 Start: 06-09-2006 End: 03-27-2024 take 1 tablet by mouth once daily in the morning Sertraline 100 MG tablet Discontinued 100 mg PO DAILY May 05, 2013 12:00am March 27, 2024 9:25am depression takes in the morning Start: 06-09-2006 take 1 tablet by david th once daily sertraline (ZOLOFT) 50 mg ORAL Tab Take one(1) tablet daily. 0 06/09/2006 Active Comment on above: Take one(1) tablet d aily. sucralfate 1000 mg oral tablet (8 sources) Aluminum Complex Start: 03-27-2024 take 1 tablet by mouth four times daily Start: 08-26-2021 End: 03-27-2024 take 1 tablet by mouth twice daily Sucralfate 1 gram Tablet Discontinued 1 g PO TWICE A DAY August 26, 2021 12:00am March 27, 2024 9:25am divalproex sodium 500 mg delayed release oral tablet (20 sources) Mood Stabilizer, Anti-epileptic Agent Start: 03-27-2024 take 1 tablet by mouth at bedtime Start: 08-26-2021 End: 03-27-2024 take 2 tablets [...] 17, 2019 12:00am May 01, 2019 9:37am seizures Start: 03-09-2016 divalproex ER (DEPAKOTE ER) 250 [...] odalis y vitamin e 180 mg oral capsul e (10 sources) Start: 03-27-2024 Start: 05-05-2013 End: 05-01-2019 Vitamin E (Dl, [...] Sig (Original) cefuroxime 250 mg oral tablet (7 sources) Cephalosporin Antibacterial Start: 04-17-2019 End: 05-01-2019 take 1 tablet by mouth twice daily Cefuroxime Axetil (Cefuroxime) 250 MG tablet Discontinued 250 mg PO TWICE A DAY April 17, 2019 12:00am May 01, 2019 9:45am infection clarithromycin 500 mg oral tablet (1 source) [...] 788.30/434.91 doxycycline monohydrate 100 mg oral capsule (7 sources) Tetracycline-class Drug Start: 09-21-2020 End: 07-27-2021 take 1 capsule by mouth twice daily Doxycycline Monohydrate 100 mg capsule Discontinued 100 mg PO TWICE A DAY 20 0 September 21, 2020 12:00am July 27, 2021 1:51pm loratadine 10 mg oral tablet (7 sources) Start: 05-01-2019 End: 07-27-2021 take 1 tablet by mouth once daily Loratadine 10 mg tablet Discontinued 10 mg PO DAILY May 01, 2019 12:00am July 27, 2021 1:52pm allergies takes at night LORazepam 0.5 mg oral tablet (8 sources) Benzodiazepine Start: 05-05-2013 End: 05-02-2017 Lorazepam [...] sodium 100 mg extended release oral capsule (8 sources) Anti-epileptic Agent Start: 11-05-2010 End: 07-27-2021 take 1 capsule by mouth three times daily Phenytoin Sodium Extended 100 mg capsule Discontinued 100 mg PO THREE TIMES A DAY May 01, 2019 12:00am July 27, 2021 1:52pm seizures Comment on above: Take 1 capsule by [facility] three times daily. predniSONE 20 mg oral tablet (7 sources) Start: 09-21-2020 End: 07-27-2021 take 2 tablets by mouth once daily Prednisone 20 mg tablet Discontinued 40 mg PO DAILY 8 September 21, 2020 12:00am July 27, 2021 1:50pm Start: 09-21-2020 End: 07-27-2021 take 40 mg by mouth once daily Prednisone Discontinued 40 MG PO DAILY September 21, 2020 12:00am July 27, 2021 1:50pm Problems Active Problems Problem Classification Problem Date Documented Da te Episodic/Chronic Asthma (1 source) Unspecified asthma, uncomplicated; Translations: [Asthma, unspecified type, unspecified] 10-20-2004 Chronic Cardiac dysrhythmias (7 sources) Supraventricular tachycardia; Translations: [Supraventricular tachycardia] 08-13-2019 Chronic Chronic obstructive pulmonary disease and bronchiectasis (7 sources) Bronchitis; Translations: [Bronchitis, not specified as acute or chronic] 09-21-2020 Episodic Coronary atherosclerosis and other heart disease (7 sources) Coronary atherosclerosis; Translations: [Atherosclerotic heart disease of [place] coronary artery without angina pectoris] 08-13-2019 Chronic Developmental disorders (1 source) Intellectual disability; Translations: [Unspecified intellectual disabilities] 10-20-2004 Chronic Disorders of lipid metabolism (8 sources) Hyperlipidemia; Translations: [Hyperlipidemia, unspecified] Onset: 8 04-11-2007 Chronic Epilepsy; convulsions (1 source) Generalized convulsive epilepsy; Translations: [Generalized idiopathic epilepsy and epileptic syndromes, not intractable, without status epilepticus] Onset: 5 10-21-2004 Chronic Esophageal disorders (1 source) Gastroesophageal reflux disease; Translations: [Gastro-esophageal reflux disease without esophagitis] 10-20-2004 Chronic Esophageal disorders (8 sources) Zenker's diverticulum; Translations: [Diverticulum of esophagus, acquired] Episodic Essential hypertension (7 sources) Essential hypertension; Translations: [Essential (primary) hypertension] 08-13-2019 Chronic Headache; including migraine (1 source) Migraine without aura; Translations: [Migraine without aura, not intractable, without status migrainosus] Onset: 6 04-05-2005 Chronic Mood disorders (1 source) Bipolar I disorder; Translations: [Bipolar disorder, unspecified] 10-14-2008 Chronic Nonspecific chest pain (7 sources) Chest pain; Translations: [Chest pain, unspecified] 08-13-2019 Episodic Other aftercare (1 source) Other intermediate (current) drug therapy; Translations: [Other termite control representative (current) drug therapy] Onset: Episodic Other and unspecified benign neoplasm (6 sources) History of polyp of colon; Translations: [Personal history of colonic polyps] 07-27-2021 Episodic Other and unspecified benign neoplasm (1 source) Personal history of colonic polyps; Translations: [Personal history of colonic polyps] Episodic Other congenital anomalies (1 source) Congenital pes planus; Translations: [Congenital pes planus, unspecified foot] Onset: 0 02-19-2009 Chronic Other gastrointestinal disorders (6 sources) Esophageal dysphagia; Translations: [Other dysphagia] 07-27-2021 Episodic Other gastrointestinal disorders (8 sources) Constipation; Translations: [Constipation, unspecified] Onset: 6 04-05-2005 Episodic Other gastrointestinal disorders (1 source) Constipation, unspecified; Translations: [Constipation, unspecified] Episodic Other gastrointestinal disorders (1 source) Other dysphagia; Translations: [Other dysphagia] Episodic Other nervous system disorders (3 sources) Tremor due to central nervous system [...] conditions (not mental disorders or infectious disease) (7 sources) Patient encounter status; Translations: [Encounter for screening for malignant neoplasm of intestinal tract, unspecified] 06-02-2017 Episodic Other upper respiratory disease (1 source) Allergic rhinitis; Translations: [Allergic rhinitis, unspecified] Onset: 6 06-14-2005 Chronic Paralysis (3 sources) Cerebral palsy; Translations: [Cerebral palsy, unspecified] 03-27-2024 Chronic Comment on above: Patient with longsta nding history of cerebral palsy. This appears to be supported by history as well as CT scan of head documenting presence of cerebral as well as cerebellar atrophy. Patient has been in a alf for 20 years. Patient has 6 siblings [...] Test Name Value Interpretation Reference Range Facility Absolute lymphocyte countOrd ered By: Jessie Vasquez on 11-06-2024 Lymphocytes Auto (Unsp spec) [#/Vol] 1.35 10*3/uL 0.83-4.51 [facility] Absolute neutrophil countOrd ered By: Jessie Vasquez on 11-06-2024 Neutrophils (Bld) [#/Vol] 1.5 10*3/uL Low 2.0-7.7 [facility] Ammoniaon 11-06-2024 Ammonia (P) [Moles/Vol] 54.5 umol/L Normal 16-60 [facility] Comment on above: Performed By: #### L [id number], L500.4050, L501.8100, L100.0100 #### [facility] [address] [facility]. [place], [place], [id number] Anion gap in Serum or Plasma Ordered By: Jessie Vasquez on 11-06-2024 Anion gap [Moles/Vol] 10 mmol/L 5-15 [facility] Automated lymphocyte count a s percentage of total leukocytesOrdered By: Jessie Vasquez on 11-06-2024 Lymphocytes/100 WBC Auto (Unsp spec) 39.1 % 19-41 [facility] BUN/creatinine ratioOrdered By: Jessie Vasquez on 11-06-2024 Urea nitrogen/Creatinine [Mass ratio] 6.4 mg/mg Low 10-20 [facility] Basophil percentageOrdered B y: Jessie Vasquez on 11-06-2024 Basophils/100 WBC (Bld) 0.6 % 0-1 [facility] Bilirubin, totalOrdered By: Jessie Vasquez on 11-06-2024 Bilirubin [Mass/Vol] 0.25 mg/dL 0.00-1.30 [facility] CBC W/Diff, Automatedon Absolute Lymph 1.35 X10 3/uL Normal 0.83-4.51 [facility] Comment on above: Performed By: #### L [id number], [id number], L501.8100, L100.0100 #### [facility] [address] [place], [place], [id number] Absolute Neut 1.5 X10 3/uL Low 2.0-7.7 [facility] Comment on above: Performed By: #### L [id number], [id number], L501.8100, L100.0100 #### [facility] [address] [place], [address] Nucleated RBC (Bld) [#/Vol] 0 10*3/uL Normal 0-5 [facility] Comment on above: Performed By: #### L [id number], [id number], L501.8100, L100.0100 #### [facility] [address] [place], [address] Basophils/100 WBC (Bld) 0.6 % Normal 0-1 [facility] Comment on above: Performed By: #### L [id number], [id number], L501.8100, L100.0100 #### [facility] [address] [place], [address] Eosinophils/100 WBC (Bld) 4.1 % Normal 0-5 [facility] Comment on above: Performed By: #### L [id number], [id number], L501.8100, L100.0100 #### [facility] [address] [place], [address] Erythrocyte distribution width (RBC) [Ratio] 14.2 % Normal 11.6-14.6 [facility] Comment on above: Performed By: #### L [id number], [id number], L501.8100, L100.0100 #### [facility] [address] [place], [address] Hematocrit (Bld) [Volume fraction] 35.4 % Low 40-54 [facility] Comment on above: Performed By: #### L [id number], [id number], L501.8100, L100.0100 #### [facility] [address] [place], [address] Hemoglobin (Bld) [Mass/Vol] 13.1 g/dL Normal 13.0-16.5 [facility] Comment on above: Performed By: #### L [id number], [id number], L501.8100, L100.0100 #### [facility] [address] [place], [address] IG% 0.000 Normal 0.0-0.9 [facility] Comment on above: Result Comment: IG% - Immature Granulocytes (promyelocytes, myelocytes and metamyelocytes) > 1% indicates that a LEFT SHIFT is Present. Performed By: #### L [id number], [id number], L501.8100, L100.0100 #### [facility] [address] [place], [address] Lymphocytes/100 WBC (Bld) 39.1 % Normal 19-41 [facility] Comment on above: Performed By: #### L 503.5510, [id number], L501.8100, L100.0100 #### [facility] [address] [place], [address] MCH (RBC) [Entitic mass] 27.5 pg Normal 27.0-32.0 [facility] Comment on above: Performed By: #### L [id number], [id number], L501.8100, L100.0100 #### [facility] [address] [place], [address] MCHC (RBC) [Mass/Vol] 37.0 g/dL High 32-36 [facility] Comment on above: Performed By: #### L [id number], [id number], L501.8100, L100.0100 #### [facility] [address] [place], [address] MCV (RBC) [Entitic vol] 74.4 fL Low 80-94 [facility] Comment on above: Performed By: #### L [id number], [id number], L501.8100, L100.0100 #### [facility] [address] [place], [address] Monocytes/100 WBC (Bld) 13.9 % High 0-10 [facility] Comment on above: Performed By: #### L 503.5510, [id number], L501.8100, L100.0100 #### [facility] [address] [place], [address] Neutrophils/100 WBC (Bld) 42.3 % Low 47-70 [facility] Comment on above: Performed By: #### L [id number], [id number], L501.8100, L100.0100 #### [facility] [address] [place], [address] Platelet mean volume (Bld) [Entitic vol] 10.2 fL Normal 6.2-12.0 [facility] Comment on above: Performed By: #### L 503.5510, [id number], L501.8100, L100.0100 #### [facility] [address] [place], [address] Platelets (Bld) [#/Vol] 225 10*3/uL Normal 150-450 [facility] Comment on above: Performed By: #### L 503.5510, [id number], L501.8100, L100.0100 #### [facility] [address] [place], [address] RBC (Bld) [#/Vol] 4.76 10*6/uL Normal 4.6-6.2 [facility] Comment on above: Performed By: #### L [id number], [id number], L501.8100, L100.0100 #### [facility] [address] [place], [address] RDW SD 38.2 fl Normal 35.1-43.9 [facility] Comment on above: Performed By: #### L [id number], [id number], L501.8100, L100.0100 #### [facility] [address] [place], [address] WBC (Bld) [#/Vol] 3.5 10*3/uL Low 4.4-11.0 [facility] Comment on above: Performed By: #### L [id number], [id number], L501.8100, L100.0100 #### [facility] [address] [place], [address] Carbon dioxide, total [Moles /volume] in Central venous bloodOrdered By: Jessie Vasquez on 11-06-2024 CO2 [Moles/Vol] 23.5 mmol/L 21.0-32.0 [facility] Chloride assayOrdered By: Felipa Vasquez on 11-06-2024 Chloride [Moles/Vol] 98 mmol/L 98-108 [facility] Comprehensive Metabolic Prof ilon 11-06-2024 Albumin [Mass/Vol] 4.2 g/dL Normal 3.5-5.0 [facility] Comment on above: Performed By: #### L 503.5510, [id number], L501.8100, L100.0100 #### [facility] [address] [place], [address] Albumin/Globulin [Mass ratio] 1.7 {ratio} Normal 0.9-2.4 [facility] Comment on above: Performed By: #### L [id number], [id number], L501.8100, L100.0100 #### [facility] [address] [place], [address] ALK PHOS 54 U/L Normal 40-129 [facility] Comment on above: Performed By: #### L [id number], [id number], L501.8100, L100.0100 #### [facility] [address] [place], [address] ALT [Catalytic activity/Vol] 18 U/L Normal <=46 [facility] Comment on above: Performed By: #### L 503.5510, [id number], L501.8100, L100.0100 #### [facility] [address] [place], [address] AST [Catalytic activity/Vol] 20 U/L Normal <=37 [facility] Comment on above: Performed By: #### L 503.5510, [id number], L501.8100, L100.0100 #### [facility] [address] [place], [address] Bilirubin [Mass/Vol] 0.25 mg/dL Normal 0.00-1.30 [facility] Comment on above: Performed By: #### L [id number], [id number], L501.8100, L100.0100 #### [facility] [address] [place], [address] BUN/CRE 6.4 RATIO Low 10-20 [facility] Comment on above: Performed By: #### L 503.5510, [id number], L501.8100, L100.0100 #### [facility] [address] [place], [address] Calcium [Mass/Vol] 9.3 mg/dL Normal 7.6-11.0 [facility] Comment on above: Performed By: #### L [id number], [id number], L501.8100, L100.0100 #### [facility] [address] [place], [address] Chloride [Moles/Vol] 98 mmol/L Normal 98-108 [facility] Comment on above: Performed By: #### L [id number], [id number], L501.8100, L100.0100 #### [facility] [address] [place], [address] CO2 [Moles/Vol] 23.5 mmol/L Normal 21.0-32.0 [facility] Comment on above: Performed By: #### L [id number], [id number], L501.8100, L100.0100 #### [facility] [facility] [address] [place], [address] Creatinine [Mass/Vol] 0.74 mg/dL Normal 0.70-1.20 [facility] Comment on above: Performed By: #### L 503.5510, L500.4050, L501.8100, L100.0100 #### [facility] [address] [place], [address] GAP 10 Normal 5-15 [facility] Comment on above: Performed By: #### L 503.5510, L500.4050, L501.8100, L100.0100 #### [facility] [address] [place], [address] GFR/1.73 sq M.predicted among non-blacks MDRD (S/P/Bld) [Vol rate/Area] 105 mL/min/{1.73_m2} Normal >60 [facility] Comment on above: Result Comment: mL/m in/1.73m2 CKD-EPI Creatinine Equation (2020) Performed By: #### L 503.5510, L500.4050, L501.8100, L100.0100 #### [facility] [address] [place], [address] Globulin (S) [Mass/Vol] 2.4 g/dL Normal 2.2-4.2 [facility] Comment on above: Performed By: #### L 503.5510, L500.4050, L501.8100, L100.0100 #### [facility] [address] [place], [address] Glucose [Mass/Vol] 104 mg/dL High 70-99 [facility] Comment on above: Performed By: #### L 503.5510, L500.4050, L501.8100, L100.0100 #### [facility] [address] [place], [address] Potassium [Moles/Vol] 4.5 mmol/L Normal 3.3-5.1 [facility] Comment on above: Performed By: #### L 503.5510, L500.4050, L501.8100, L100.0100 #### [facility] [address] [place], [address] Sodium [Moles/Vol] 132 mmol/L Low 133-145 [facility] Comment on above: Performed By: #### L 503.5510, L500.4050, L501.8100, L100.0100 #### [facility] [address] [place], [address] T PROT 6.5 g/dL Normal 5.9-8.4 [facility] Comment on above: Performed By: #### L 503.5510, L500.4050, L501.8100, L100.0100 #### [facility] [address] [place], [address] Urea nitrogen [Mass/Vol] 5 mg/dL Normal 4-19 [facility] Comment on above: Performed By: #### L 503.5510, L500.4050, L501.8100, L100.0100 #### [facility] [address] [place], [address] Eosinophil percentageOrdered By: Jessie Vasquez on 11-06-2024 Eosinophils/100 WBC (Bld) 4.1 % 0-5 [facility] Erythrocyte distribution wid th ratioOrdered By: Jessie Vasquez on 11-06-2024 Erythrocyte distribution width (RBC) [Ratio] 14.2 % 11.6-14.6 [facility] Erythrocyte distribution wid th standard deviationOrdered By: Jessie Vasquez on 11-06-2024 Erythrocyte distribution width (RBC) [Ratio] 38.2 fl 35.1-43.9 [facility] Glomerular filtration rate ( GFR) estimation/1.73 sq m using serum, plasma, or whole bOrdered By: Jessie Vasquez on 11-06-2024 GFR/1.73 sq M.predicted among non-blacks MDRD (S/P/Bld) [Vol rate/Area] 105 mL/min/{1.73_m2} >60 [facility] Comment on above: mL/min/1.73m2 CKD-EP I Creatinine Equation (2020) Hematocrit Auto (Bld) [Volum e fraction]Ordered By: Jessie Vasquez on 11-06-2024 Hematocrit (Bld) [Volume fraction] 35.4 % Low 40-54 [facility] Hemoglobin measurementOrdere d By: Jessie Vasquez on 11-06-2024 Hemoglobin (Bld) [Mass/Vol] 13.1 g/dL 13.0-16.5 [facility] Immature granulocytes/100 WB C Auto (Bld)Ordered By: Jessie Vasquez on 11-06-2024 Immature granulocytes/100 WBC (Bld) 0.000 % 0.0-0.9 [facility] Comment on above: IG% - Immature Granu locytes (promyelocytes, myelocytes and metamyelocytes) > 1% indicates that a LEFT SHIFT is Present. Laboratory - Chemistry and C hemistry - challengeOrdered By: Jessie Vasquez on 11-06-2024 AST [Catalytic activity/Vol] 20 U/L <38 [facility] MCV (mean corpuscular volume ) determinationOrdered By: Jessie Vasquez 11-06-2024 MCV (RBC) [Entitic vol] 74.4 fL Low 80-94 [facility] Mean corpuscular hemoglobin (MCH) determinationOrdered By: Jessie Vasquez 11-06-2024 MCH (RBC) [Entitic mass] 27.5 pg 27.0-32.0 [facility] Mean corpuscular hemoglobin concentration (MCHC) determinationOrdered By: Jessie Vasquez on 11-06-2024 MCHC (RBC) [Mass/Vol] 37.0 g/dL High 32-36 [facility] Mean platelet volume determi nationOrdered By: Jessie Vasquez on 11-06-2024 Platelet mean volume (Bld) [Entitic vol] 10.2 fL 6.2-12.0 [facility] Monocyte percentageOrdered B y: Jessie Vasquez on 11-06-2024 Monocytes/100 WBC (Bld) 13.9 % High 0-10 [facility] Neutrophil percentageOrdered By: Jessie Vasquez on 11-06-2024 Neutrophils/100 WBC (Bld) 42.3 % Low 47-70 [facility] Nucleated red blood cell per centageOrdered By: Jessie Vasquez on 11-06-2024 Nucleated RBC/100 WBC (Bld) [Ratio] 0 % 0-5 [facility] Platelet countOrdered By: Felipa Vasquez on 11-06-2024 Platelets (Bld) [#/Vol] 225 10*3/uL 150-450 [facility] Potassium measurement (mass/ volume)Ordered By: Jessie Vasquez on 11-06-2024 Potassium (Unsp spec) [Mass/Vol] 4.5 mmol/L 3.3-5.1 [facility] RBC Auto (Bld) [#/Vol]Ordere d By: Jessie Vasquez on 11-06-2024 RBC (Bld) [#/Vol] 4.76 10*6/uL 4.6-6.2 [facility] Serum creatinine measurement (mass/volume)Ordered By: Jessie Vasquez on 11-06-2024 Creatinine [Mass/Vol] 0.74 mg/dL 0.70-1.20 [facility] Serum globulin measurementOr dered By: Jessie Vasquez on 11-06-2024 Globulin (S) [Mass/Vol] 2.4 g/dL 2.2-4.2 [facility] Serum glucose measurement (m ass/volume)Ordered By: Jessie Vasquez on 11-06-2024 Glucose [Mass/Vol] 104 mg/dL High 70-99 [facility] Serum or plasma alanine samano otransferase (ALT) measurementOrdered By: Jessie Vasquez on 11-06-2024 ALT [Catalytic activity/Vol] 18 U/L <47 [facility] Serum or plasma albumin kathleen urement (mass/volume)Ordered By: Jessie Vasquez on 11-06-2024 Albumin [Mass/Vol] 4.2 g/dL 3.5-5.0 [facility] Serum or plasma albumin/glob ulin mass ratioOrdered By: Jessie Vasquez on 11-06-2024 Albumin/Globulin [Mass ratio] 1.7 {ratio} 0.9-2.4 [facility] Serum or plasma alkaline kylie sphatase measurementOrdered By: Jessie Vasquez on 11-06-2024 ALP [Catalytic activity/Vol] 54 U/L 40-129 [facility] Serum or plasma calcium kathleen urement (mass/volume)Ordered By: Jessie Vasquez on 11-06-2024 Calcium [Mass/Vol] 9.3 mg/dL 7.6-11.0 [facility] Serum or plasma urea nitroge n measurement (mass/volume)Ordered By: Jessie Vasquez on 11-06-2024 Urea nitrogen [Mass/Vol] 5 mg/dL 4-19 [facility] Serum or plasma valproate me asurement (mass/volume)Ordered By: Jessie Vasquez on 11-06-2024 Valproate [Mass/Vol] 66 ug/mL 50-100 [facility] Comment on above: Valproic Acid concen trations >100 ug/mL are potentially toxic. Sodium levelOrdered By: Jessie Vasquze on 11-06-2024 Sodium [Moles/Vol] 132 mmol/L Low 133-145 [facility] Total proteinOrdered By: Radha Vasquez on 11-06-2024 Protein [Mass/Vol] 6.5 g/dL 5.9-8.4 [facility] Valproic Acid (Depakene) Lev iron 11-06-2024 VALPROIC ACID 66 ug/mL Normal 50-100 [facility] Comment on above: Result Comment: Valp roic Acid concentrations >100 ug/mL are potentially toxic. Performed By: #### L 503.5510, L500.4050, L501.8100, L100.0100 #### [facility] [address] [place], [place], [address] Venous blood ammonia measure mentOrdered By: Jessie Vasquez on 11-06-2024 Ammonia (P) [Moles/Vol] 54.5 umol/L 16-60 [facility] White blood cell (WBC) count Ordered By: Jessie Vasquez on 11-06-2024 WBC (Bld) [#/Vol] 3.5 10*3/uL Low 4.4-11.0 [facility] Microalb:Creat Ratio,Random URon 07-26-2024 MALB:CREAT 26.2 mg/g CRE Normal [facility] Comment on above: Result Comment: AMENDED REPORT 07/26/24 0944 MALB:CREAT previously reported as: 262.2 mg/g CRE Performed By: #### L 500.4050, L500.4100, L501.15397, L501.9520, L506.0400, L502.0250 #### [facility] [address] [place], [place], [address] Anion gap in Serum or Plasma Ordered By: Jayant Joy on 06-13-2024 Anion gap [Moles/Vol] 11 mmol/L 5-15 [facility] BUN/creatinine ratioOrdered By: Jayant Joy on 06-13-2024 Urea nitrogen/Creatinine [Mass ratio] 5.0 mg/mg Low 10- [facility] Bilirubin, totalOrdered By: Jayant Joy on 06-13-2024 Bilirubin [Mass/Vol] 0.31 mg/dL 0.00-1.30 [facility] Calculated very low density lipoprotein (VLDL) cholesterol measurementOrdered By: Jayant Joy on 06-13-2024 Calculated very low density lipoprotein (VLDL) cholesterol measurement 14 mg/dL 5-40 [facility] Carbon dioxide, total [Moles /volume] in Central venous bloodOrdered By: Jayant Joy on 06-13-2024 CO2 [Moles/Vol] 23.3 mmol/L 21.0-32.0 [facility] Chloride assayOrdered By: Tan Joy on 06-13-2024 Chloride [Moles/Vol] 98 mmol/L 98-108 [facility] Comprehensive Metabolic Prof ilon 06-13-2024 Albumin [Mass/Vol] 4.0 g/dL Normal 3.5-5.0 [facility] Comment on above: Performed By: #### L 500.4050, L500.4100, L501.97220, L501.9520, L506.0400, L502.0250 #### [facility] [address] [place], [address] Albumin/Globulin [Mass ratio] 1.5 {ratio} Normal 0.9-2.4 [facility] Comment on above: Performed By: #### L 500.4050, L500.4100, L501.19632, L501.9520, L506.0400, L502.0250 #### [facility] [address] [place], [address] ALK PHOS 58 U/L Normal 40-129 [facility] Comment on above: Performed By: #### L 500.4050, L500.4100, L501.03772, L501.9520, L506.0400, L502.0250 #### [facility] [address] [place], [address] ALT [Catalytic activity/Vol] 16 U/L Normal <=46 [facility] Comment on above: Performed By: #### L 500.4050, L500.4100, L501.67775, L501.9520, L506.0400, L502.0250 #### [facility] [address] [place], [address] AST [Catalytic activity/Vol] 21 U/L Normal <=37 [facility] Comment on above: Performed By: #### L 500.4050, L500.4100, L501.40978, L501.9520, L506.0400, L502.0250 #### [facility] [address] [place], [address] Bilirubin [Mass/Vol] 0.31 mg/dL Normal 0.00-1.30 [facility] Comment on above: Performed By: #### L 500.4050, L500.4100, L501.84992, L501.9520, L506.0400, L502.0250 #### [facility] [address] [place], [address] BUN/CRE 5.0 RATIO Low 10-20 [facility] Comment on above: Performed By: #### L 500.4050, L500.4100, L501.86163, L501.9520, L506.0400, L502.0250 #### [facility] [address] [place], [address] Calcium [Mass/Vol] 9.5 mg/dL Normal 7.6-11.0 [facility] Comment on above: Performed By: #### L 500.4050, L500.4100, L501.70732, L501.9520, L506.0400, L502.0250 #### [facility] [address] [place], [address] Chloride [Moles/Vol] 98 mmol/L Normal 98-108 [facility] Comment on above: Performed By: #### L 500.4050, L500.4100, L501.03111, L501.9520, L506.0400, L502.0250 #### [facility] [address] [place], [address] CO2 [Moles/Vol] 23.3 mmol/L Normal 21.0-32.0 [facility] Comment on above: Performed By: #### L 500.4050, L500.4100, L501.37170, L501.9520, L506.0400, L502.0250 #### [facility] [address] [place], [address] Creatinine [Mass/Vol] 0.86 mg/dL Normal 0.70-1.20 [facility] Comment on above: Performed By: #### L 500.4050, L500.4100, L501.09124, L501.9520, L506.0400, L502.0250 #### [facility] [address] [place], [address] GAP 11 Normal 5-15 [facility] Comment on above: Performed By: #### L 500.4050, L500.4100, L501.60203, L501.9520, L506.0400, L502.0250 #### [facility] [address] [place], [address] GFR/1.73 sq M.predicted among non-blacks MDRD (S/P/Bld) [Vol rate/Area] 101 mL/min/{1.73_m2} Normal >60 [facility] Comment on above: Result Comment: mL/m in/1.73m2 CKD-EPI Creatinine Equation (2020) Performed By: #### L 500.4050, L500.4100, L501.00626, L501.9520, L506.0400, L502.0250 #### [facility] [address] [place], [address] Globulin (S) [Mass/Vol] 2.7 g/dL Normal 2.2-4.2 [facility] Comment on above: Performed By: #### L 500.4050, L500.4100, L501.20267, L501.9520, L506.0400, L502.0250 #### [facility] [address] [place], [address] Glucose [Mass/Vol] 96 mg/dL Normal 70-99 [facility] Comment on above: Performed By: #### L 500.4050, L500.4100, L501.93838, L501.9520, L506.0400, L502.0250 #### [facility] [address] [place], [address] Potassium [Moles/Vol] 4.8 mmol/L Normal 3.3-5.1 [facility] Comment on above: Performed By: #### L 500.4050, L500.4100, L501.51002, L501.9520, L506.0400, L502.0250 #### [facility] [address] [place], [address] Sodium [Moles/Vol] 133 mmol/L Normal 133-145 [facility] Comment on above: Performed By: #### L 500.4050, L500.4100, L501.13153, L501.9520, L506.0400, L502.0250 #### [facility] [address] [place], [address] T PROT 6.7 g/dL Normal 5.9-8.4 [facility] Comment on above: Performed By: #### L 500.4050, L500.4100, L501.42235, L501.9520, L506.0400, L502.0250 #### [facility] [address] [place], [address] Urea nitrogen [Mass/Vol] 4 mg/dL Normal 4-19 [facility] Comment on above: Performed By: #### L 500.4050, L500.4100, L501.11038, L501.9520, L506.0400, L502.0250 #### [facility] [address] [place], [address] Free T3on 05-08-2025 Free T3 [Mass/Vol] 2.5 pg/mL Normal 2.18-3.98 [facility] Comment on above: Performed By: #### L 503.5510, L500.4050, L501.8100, L100.0100 #### [facility] [address] [place], [place], [id number] Free J7Lkppaol By: Jayant mcgarry on 06-13-2024 Free T3 [Mass/Vol] 2.5 pg/mL 2.18-3.98 [facility] Glomerular filtration rate ( GFR) estimation/1.73 sq m using serum, plasma, or whole bOrdered By: Jayant Joy on 06-13-2024 GFR/1.73 sq M.predicted among non-blacks MDRD (S/P/Bld) [Vol rate/Area] 101 mL/min/{1.73_m2} >60 [facility] Comment on above: mL/min/1.73m2 CKD-EP I Creatinine Equation (2020) LDL calc ser/plasOrdered By: Jayant Joy on 06-13-2024 Cholesterol in LDL [Mass/Vol] 56 mg/dL [facility] Comment on above: Aizanxxpyy=916-176 m g/dL & Higher Goww=506 mg/dL or greater Laboratory - Chemistry and C hemistry - challengeOrdered By: Jayant Joy on 06-13-2024 AST [Catalytic activity/Vol] 21 U/L <38 [facility] Lipid Profileon 06-13-2024 CHOL:HDL 2.32 Normal [facility] Comment on above: Performed By: #### L 500.4050, L500.4100, L501.52388, L501.9520, L506.0400, L502.0250 #### [facility] [address] [place], [address] Cholesterol [Mass/Vol] 124 mg/dL Normal <=200 [facility] Comment on above: Result Comment: Chol esterol level, Desirable <200 mg/dL Borderline high cholesterol 200-239 mg/dL High cholesterol >=240 mg/dL Recommendations of the NCEP Adult Treatment Panel for the following risk-cutoff thresholds for the [place] population. Performed By: #### L 500.4050, L500.4100, L501.72449, L501.9520, L506.0400, L502.0250 #### [facility] [address] [place], [address] Cholesterol in HDL [Mass/Vol] 54 mg/dL Normal [facility] Comment on above: Result Comment: Geri onal Cholesterol Education Program (NCEP) guidelines: <40 mg/dL: Low HDL-cholesterol (major risk factor for CHD) >= 60 mg/dL: High HDL-cholesterol (negative risk factor for CHD) HDL-cholesterol is affected by a number of factors, e.g. smoking, exercise, hormones, sex and age. Performed By: #### L 500.4050, L500.4100, L501.96055, L501.9520, L506.0400, L502.0250 #### [facility] [address] [place], [address] Cholesterol in LDL [Mass/Vol] 56 mg/dL Normal [facility] Comment on above: Result Comment: Bord qvkzga=003-595 mg/dL Higher Gdgs=592 mg/dL or greater Performed By: #### L 500.4050, L500.4100, L501.52866, L501.9520, L506.0400, L502.0250 #### [facility] [address] [place], [address] Cholesterol in VLDL [Mass/Vol] 14 mg/dL Normal 5-40 [facility] Comment on above: Performed By: #### L 500.4050, L500.4100, L501.22567, L501.9520, L506.0400, L502.0250 #### [facility] [address] [place], [address] Triglyceride [Mass/Vol] 71 mg/dL Normal [facility] Comment on above: Result Comment: The drugs N-Acetylcysteine and Metamizole may falsely depress this assay. Normal range: <150 mg/dL Borderline High: 150-199 mg/dL High: 200-499 mg/dL Very High: >500 mg/dL Performed By: #### L 500.4050, L500.4100, L501.75067, L501.9520, L506.0400, L502.0250 #### [facility] [place], [address] Potassium measurement (mass/ volume)Ordered By: Jayant Joy on 06-13-2024 Potassium (Unsp spec) [Mass/Vol] 4.8 mmol/L 3.3-5.1 [facility] Random urine creatinine kathleen urement (mass/volume)Ordered By: Jayant Joy on 06-13-2024 Creatinine Unsp time (U) [Mass/Vol] 71.70 mg/dL 39.00-259.00 [facility] Screening total cholesterol/ high density lipoprotein (HDL) cholesterol ratioOrdered By: Jayant Joy on 06-13-2024 Cholesterol.total/Cholest denae in HDL [Mass ratio] 2.32 {ratio} [facility] Serum creatinine measurement (mass/volume)Ordered By: Jayant Joy on 06-13-2024 Creatinine [Mass/Vol] 0.86 mg/dL 0.70-1.20 [facility] Serum globulin measurementOr dered By: Jayant Joy on 06-13-2024 Globulin (S) [Mass/Vol] 2.7 g/dL 2.2-4.2 [facility] Serum glucose measurement (m ass/volume)Ordered By: Jayant Joy on 06-13-2024 Glucose [Mass/Vol] 96 mg/dL 70-99 [facility] Serum or plasma alanine samano otransferase (ALT) measurementOrdered By: Jayant Joy on 06-13-2024 ALT [Catalytic activity/Vol] 16 U/L <47 [facility] Serum or plasma albumin kathleen urement (mass/volume)Ordered By: Jayant Joy on 06-13-2024 Albumin [Mass/Vol] 4.0 g/dL 3.5-5.0 [facility] Serum or plasma albumin/glob ulin mass ratioOrdered By: Jayant Joy on 06-13-2024 Albumin/Globulin [Mass ratio] 1.5 {ratio} 0.9-2.4 [facility] Serum or plasma alkaline kylie sphatase measurementOrdered By: Jayant Joy on 06-13-2024 ALP [Catalytic activity/Vol] 58 U/L 40-129 [facility] Serum or plasma calcium kathleen urement (mass/volume)Ordered By: Jayant Joy on 06-13-2024 Calcium [Mass/Vol] 9.5 mg/dL 7.6-11.0 [facility] Serum or plasma cholesterol in HDL measurement (mass/volume)Ordered By: Jayant Joy on 06-13-2024 Cholesterol in HDL [Mass/Vol] 54 mg/dL >40 [facility] Comment on above: National Cholesterol Education Program (NCEP) guidelines:<40 mg/dL: Low HDL-cholesterol (major risk factor for CHD)>= 60 mg/dL: High HDL-cholesterol (negative risk factor for CHD)HDL-cholesterol is affected by a number of factors, e.g. smoking, exercise, hormones, sex and age. Serum or plasma cholesterol measurement (mass/volume)Ordered By: Jayant Joy on 06-13-2024 Cholesterol [Mass/Vol] 124 mg/dL <201 [facility] Comment on above: Cholesterol level, D esirable <200 mg/dLBorderline high cholesterol 200-239 mg/dLHigh cholesterol >=240 mg/dLRecommendations of the NCEP Adult Treatment Panel for the following risk-cutoff thresholds for the [place] population. Serum or plasma urea nitroge n measurement (mass/volume)Ordered By: Jayant Joy on 06-13-2024 Urea nitrogen [Mass/Vol] 4 mg/dL 4-19 [facility] Sodium levelOrdered By: Jayant Joy on 06-13-2024 Sodium [Moles/Vol] 133 mmol/L 133-145 [facility] T4 Free Directon 06-13-2024 T4 FREE DIRECT 1.10 ng/dL Normal 0.76-1.46 [facility] Comment on above: Performed By: #### L 503.5510, L500.4050, L501.8100, L100.0100 #### [facility] [address] [place], [place], [id number] T4 freeOrdered By: Jayant mcgarry on 06-13-2024 Free T4 [Mass/Vol] 1.10 ng/dL 0.76-1.46 [facility] TSH DL <= 0.005 mIU/L QnOrde red By: Jayant Joy on 06-13-2024 TSH Qn 0.856 uIU/mL 0.300-4.200 [facility] Thyroid Stim Hormone (TSH)on 06-13-2024 TSH 0.856 uIU/mL Normal 0.300-4.200 [facility] Comment on above: Performed By: #### L 503.5510, L500.4050, L501.8100, L100.0100 #### [facility] [address] [place], [place], [id number] Total proteinOrdered By: Carly Joy on 06-13-2024 Protein [Mass/Vol] 6.7 g/dL 5.9-8.4 [facility] Triglycerides measurementOrd ered By: Jayant Joy on 06-13-2024 Triglyceride [Mass/Vol] 71 mg/dL <199 [facility] Comment on above: The drugs N-Acetylcy steine and Metamizole may falsely depress this assay. Normal range: <150 mg/dLBorderline High: 150-199 mg/dLHigh: 200-499 mg/dLVery High: >500 mg/dL Urine albumin measurement [facility] detection limit of 20 mg/L or less (mass/volume)Ordered By: Jayant Joy on 06-13-2024 Albumin DL <= 20 mg/L (U) [Mass/Vol] 18.8 mg/L NO RANGE EST. [facility] Neurology Visit Reporton Neurology Visit Report [facility] [address], [address] [place], [place] [address] OFFICE VISIT Date of Service: 03/27/24 MR#: [id number] Acct: [id number] Name: CHIRAGKJ Mildred Rep #: [id number] : 1965 Provider: Dr. Pete mercado MD Age/Sex: 58/M Location: [facility] [place] Status: Signed HPI HPI Chief Complaint: [facility] Care Details: The patient is a 58-year-old left handed male who presents to [facility]. He was referred 02/15/2024 Dr. Jayant Joy with [facility] for cognitive change. This gentleman is accompanied by a mental health worker from his alf. Information was obtained from the patient, group managing director and medical records. Medical records were provided by the group managing director as well as pre-existing medical records and the patient chart. This gentleman has been a alf resident for at least 20 years. Records [...] and after 5 minutes. 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 Insight and judgment may [...] atrophy. Patie (more content not included)... Normal [facility] Urine Cultureon 01-26-2024 [place] Order Date: 01/23/24 Order Info: 630-4 - CUUR Streptococcus mitis/ oralis Ladd Count 25,000-50,000 Streptococcus mitis/ oralis: REACTION Ampicillin Islt KAREN <=0.25 Penicillin G Islt KAREN 0.12 S Cefotaxime Islt KAREN <=0.12 S cefTRIAXone Islt KAREN <=0.12 S Linezolid Islt KAREN <=2 S Vancomycin Islt KAREN 0.5 S Normal [facility] Comment on above: Performed By: #### L 400.0001, M100.2200 #### [facility] [address] [place], [address] Urinalysis, Completeon 01-23 EPI,SQUAMOUS 0-5 SEEN Normal 0-5 [facility] Comment on above: Order Comment: Order Date: 01/23/24 Order Info: [address] [place] [address] [employer] TO SPECIFY Performed By: #### L 400.0001, M100.2200 #### [facility] [address] [place], [address] RBC 0 SEEN Normal 0-5 [facility] Comment on above: Order Comment: Order Date: 01/23/24 Order Info: [address] [place] [address] [employer] TO SPECIFY Performed By: #### L 400.0001, M100.2200 #### [facility] [address] [place], [address] WBC 0-5 SEEN Normal 0-5 [facility] Comment on above: Order Comment: Order Date: 01/23/24 Order Info: [address] [place] [address] [employer] TO SPECIFY Performed By: #### L 400.0001, M100.2200 #### [facility] [address] [place], [address] BACTERIA 0 SEEN Normal None Seen [facility] Comment on above: Order Comment: Order Date: 01/23/24 Order Info: [id number] WIRE HARNESS ASSEMBLER TO SPECIFY Performed By: #### L 400.0001, M100.2200 #### [facility] [address] [place], [address] Mucus Ql (Urine sed) 0 SEEN Normal [facility] Comment on above: Order Comment: Order Date: 01/23/24 Order Info: [id number] - UAC WIRE HARNESS ASSEMBLER TO SPECIFY Performed By: #### L 400.0001, M100.2200 #### [facility] [address] [place], [address] Basophil percentageOrdered B y: Jayant Joy on 06-02-2023 Bilirubin [Mass/Vol] 0.30 mg/dL 0.20-1.00 [facility] Comment on above: For patients on eltr ombopag therapy, use of Dimension [place] TBIL is not recommended. Chloride [Moles/Vol] 103 mmol/L 98-107 [facility] Cholesterol [Mass/Vol] 123 mg/dL <200 [facility] Comment on above: <200 mg/dL Desirable 200-240 mg/dL Borderline >240 mg/dL High Risk Glucose [Mass/Vol] 84 mg/dL 74-106 [facility] Potassium [Moles/Vol] 4.5 mmol/L 3.5-5.1 [facility] Protein [Mass/Vol] 7.0 g/dL 6.4-8.2 [facility] Sodium [Moles/Vol] 135 mmol/L 136-145 [facility] Triglyceride [Mass/Vol] 112 mg/dL <199 [facility] Comment on above: The drugs N-Acetylcy steine and Metamizole may falsely depress this assay.Serum Triglycerides Reference Interval Normal <150 mg/dL Borderline high 150 - 199 mg/dL High 200 - 499 mg/dL Very High > or = 500 mg/dL Laboratory - Chemistry and C hemistry - challengeOrdered By: Jayant Joy on 06-02-2023 Albumin/Globulin [Mass ratio] 0.9 {ratio} 0.9-2.4 [facility] ALP [Catalytic activity/Vol] 55 U/L 45-117 [facility] ALT [Catalytic activity/Vol] 22 U/L 16-61 [facility] Cholesterol in HDL [Mass/Vol] 54 mg/dL >40 [facility] Comment on above: The drugs N-Acetylcy steine and Metamizole may falsely depress this assay. Reference Range HDL <40 mg/dL Low HDL Cholesterol HDL >or= 60 mg/dL High HDL Cholesterol Cholesterol in LDL [Mass/Vol] 47 mg/dL 0-130 [facility] CO2 [Moles/Vol] 29.0 mmol/L 21.0-32.0 [facility] Globulin (S) [Mass/Vol] 3.6 g/dL 2.2-4.2 [facility] Urea nitrogen/Creatinine [Mass ratio] 8.9 mg/mg 10-20 [facility] No Panel InformationOrdered By: Jayant Joy on 06-02-2023 Estimated GFR (MDRD) Amer 112 mL/min >60 [facility] Comment on above: GFR Calc Estimated GFR (MDRD) Non-Af Amer 93 mL/min >60 [facility] Comment on above: Non- GFR Calc Free Triiodothyronine (T3) pg/dL 2.2 pg/mL 2.18-3.98 [facility] VLDL Cholesterol 22 mg/dL 5-40 [facility] Serum or plasma calcium kathleen urement (mass/volume)Ordered By: Jayant Joy on 06-02-2023 Calcium [Mass/Vol] 9.2 mg/dL 8.5-10.1 [facility] Serum or plasma creatinine m easurement (mass/volume)Ordered By: Jayant Joy on 06-02-2023 Creatinine [Mass/Vol] 0.90 mg/dL 0.70-1.30 [facility] Comment on above: The validity of the calculated GFR & GFRAA in patients over 70 years has not been determined. Clinical correlation is essential. Serum or plasma thyroid stim ulating hormone (TSH) measurement (units/volume)Ordered By: Jayant Joy on 06-02-2023 TSH Qn 1.11 uIU/mL 0.358-3.74 [facility] Serum or plasma urea nitroge n measurement (mass/volume)Ordered By: Jayant Joy on 06-02-2023 Urea nitrogen [Mass/Vol] 8 mg/dL 7-18 [facility] Thin prep Papanicolaou smear with manual screeningOrdered By: Jayant Joy on 06-02-2023 Thin prep Papanicolaou smear with manual screening 3.4 g/dL 3.2-5.0 [facility] Thin prep Papanicolaou smear with manual screening 13 U/L 15-37 [facility] Thin prep Papanicolaou smear with manual screening 3 5-15 [facility] Thin prep Papanicolaou smear with manual screening 0.87 ng/dL 0.76-1.46 [facility] Basophil percentageOrdered B y: Jessie Vasquez on 12-23-2022 Ammonia (P) [Moles/Vol] 21.0 umol/L 11-32 [facility] Bilirubin [Mass/Vol] 0.20 mg/dL 0.20-1.00 [facility] Comment on above: For patients on eltr ombopag therapy, use of Dimension [place] TBIL is not recommended. Chloride [Moles/Vol] 100 mmol/L 98-107 [facility] Glucose [Mass/Vol] 105 mg/dL 74-106 [facility] Comment on above: Fasting Glucose resu lt from 100 to 125 mg/dL suggests IMPAIRED HOMEOSTASIS per A.D.A. criteria. Potassium [Moles/Vol] 4.6 mmol/L 3.5-5.1 [facility] Protein [Mass/Vol] 7.3 g/dL 6.4-8.2 [facility] Sodium [Moles/Vol] 131 mmol/L 136-145 [facility] WBC (Bld) [#/Vol] 4.3 10*3/uL 4.4-11.0 [facility] Blood erythrocytes count (nu mber/volume)Ordered By: Jessie Vasquez on 12-23-2022 RBC (Bld) [#/Vol] 5.29 10*6/uL 4.6-6.2 [facility] Blood hemoglobin measurement (mass/volume)Ordered By: Jessie Vasquez on 12-23-2022 Hemoglobin (Bld) [Mass/Vol] 14.3 g/dL 13.0-16.5 [facility] Blood platelet mean volumeOr dered By: Jessie Vasquez on 12-23-2022 Platelet mean volume (Bld) [Entitic vol] 9.6 fL 6.2-12.0 [facility] Determination of erythrocyte mean corpuscular volume (MCV)Ordered By: Jessie Vasquez on 12-23-2022 MCV (RBC) [Entitic vol] 76.7 fL 80-94 [facility] Hematocrit Auto (Bld) [Volum e fraction]Ordered By: Jessei Vasquez on 12-23-2022 Hematocrit (Bld) [Volume fraction] 40.6 % 40-54 [facility] - Chemistry and C hemistry - challengeOrdered By: Jessie Vasquez on 12-23-2022 ALP [Catalytic activity/Vol] 59 U/L 45-117 [facility] ALT [Catalytic activity/Vol] 34 U/L 16-61 [facility] CO2 [Moles/Vol] 27.0 mmol/L 21.0-32.0 [facility] Globulin (S) [Mass/Vol] 3.7 g/dL 2.2-4.2 [facility] Urea nitrogen/Creatinine [Mass ratio] 9.1 mg/mg 10-20 [facility] - Hematology and Cell countsOrdered By: Jessie Vasquez on 12-23-2022 Erythrocyte distribution width (RBC) [Entitic vol] 39.1 fL 35.1-43.9 [facility] Erythrocyte distribution width (RBC) [Ratio] 14.2 % 11.6-14.6 [facility] MCH (RBC) [Entitic mass] 27.0 pg 27.0-32.0 [facility] MCHC Auto (RBC) [Mass/Vol]Or dered By: Jessie Vasquez on 12-23-2022 MCHC (RBC) [Mass/Vol] 35.2 g/dL 32-36 [facility] No Panel InformationOrdered By: Jessie Vasquez on 12-23-2022 Estimated GFR (MDRD) Amer 115 mL/min >60 [facility] Comment on above: GFR Calc Estimated GFR (MDRD) Non-Af Amer 95 mL/min >60 [facility] Comment on above: Non- GFR Calc Valproic Acid (Depakene) Level 84 ug/mL 50-100 [facility] Platelets bldOrdered By: Radha Vasquez on 12-23-2022 Platelets (Bld) [#/Vol] 245 10*3/uL 150-450 [facility] Serum or plasma albumin kathleen urement (mass/volume)Ordered By: Jessie Vasquez on 12-23-2022 Albumin [Mass/Vol] 3.6 g/dL 3.2-5.0 [facility] Serum or plasma albumin/glob ulin mass ratioOrdered By: Jessie Vasquez on 12-23-2022 Albumin/Globulin [Mass ratio] 1.0 {ratio} 0.9-2.4 [facility] Serum or plasma calcium kathleen urement (mass/volume)Ordered By: Jesise Vasquez on 12-23-2022 Calcium [Mass/Vol] 9.2 mg/dL 8.5-10.1 [facility] Serum or plasma creatinine m easurement (mass/volume)Ordered By: [facility] on 12-23-2022 Creatinine [Mass/Vol] 0.88 mg/dL 0.70-1.30 [facility] Comment on above: The validity of the calculated GFR & GFRAA in patients over 70 years has not been determined. Clinical correlation is essential. Serum or plasma urea nitroge n measurement (mass/volume)Ordered By: [facility] on 12-23-2022 Urea nitrogen [Mass/Vol] 8 mg/dL 7-18 [facility] Thin prep Papanicolaou smear with manual screeningOrdered By: [facility] on 12-23-2022 Thin prep Papanicolaou smear with manual screening 16 U/L 15-37 [facility] Thin prep Papanicolaou smear with manual screening 4 5-15 [facility] Basophil percentageOrdered B y: Jayant Joy on 11-17-2022 Bilirubin [Mass/Vol] 0.20 mg/dL 0.20-1.00 [facility] Comment on above: For patients on eltr ombopag therapy, use of Dimension [place] TBIL is not recommended. Chloride [Moles/Vol] 101 mmol/L 98-107 [facility] Cholesterol [Mass/Vol] 115 mg/dL <200 [facility] Comment on above: <200 mg/dL Desirable 200-240 mg/dL Borderline >240 mg/dL High Risk Glucose [Mass/Vol] 96 mg/dL 74-106 [facility] Potassium [Moles/Vol] 4.1 mmol/L 3.5-5.1 [facility] Protein [Mass/Vol] 7.0 g/dL 6.4-8.2 [facility] Sodium [Moles/Vol] 134 mmol/L 136-145 [facility] Triglyceride [Mass/Vol] 143 mg/dL <199 [facility] Comment on above: The drugs N-Acetylcy steine and Metamizole may falsely depress this assay.Serum Triglycerides Reference Interval Normal <150 mg/dL Borderline high 150 - 199 mg/dL High 200 - 499 mg/dL Very High > or = 500 mg/dL Laboratory - Chemistry and C hemistry - challengeOrdered By: Jayant Joy on 11-17-2022 ALP [Catalytic activity/Vol] 57 U/L 45-117 [facility] ALT [Catalytic activity/Vol] 26 U/L 16-61 [facility] CO2 [Moles/Vol] 27.0 mmol/L 21.0-32.0 [facility] Free T4 [Mass/Vol] 0.96 ng/dL 0.76-1.46 [facility] Globulin (S) [Mass/Vol] 3.7 g/dL 2.2-4.2 [facility] Urea nitrogen/Creatinine [Mass ratio] 8.0 mg/mg 10-20 [facility] No Panel InformationOrdered By: Jayant Joy on 11-17-2022 Estimated GFR (MDRD) Amer 139 mL/min >60 [facility] Comment on above: GFR Calc Estimated GFR (MDRD) Non-Af Amer 115 mL/min >60 [facility] Comment on above: Non- GFR Calc Free Triiodothyronine (T3) pg/dL 2.1 pg/mL 2.18-3.98 [facility] Thyroid Stimulating Hormone (TSH) 0.73 uIU/mL 0.358-3.74 [facility] Urine Microalbumin/Creatinine Ratio TNP [facility] Comment on above: Test not performed Serum or plasma albumin kathleen urement (mass/volume)Ordered By: Jayant Joy on 11-17-2022 Albumin [Mass/Vol] 3.3 g/dL 3.2-5.0 [facility] Serum or plasma albumin/glob ulin mass ratioOrdered By: Jayant Joy on 11-17-2022 Albumin/Globulin [Mass ratio] 0.9 {ratio} 0.9-2.4 [facility] Serum or plasma calcium kathleen urement (mass/volume)Ordered By: Jayant Joy on 11-17-2022 Calcium [Mass/Vol] 8.8 mg/dL 8.5-10.1 [facility] Serum or plasma cholesterol in HDL measurement (mass/volume)Ordered By: Jayant Joy on 11-17-2022 Cholesterol in HDL [Mass/Vol] 55 mg/dL >40 [facility] Comment on above: The drugs N-Acetylcy steine and Metamizole may falsely depress this assay. Reference Range HDL <40 mg/dL Low HDL Cholesterol HDL >or= 60 mg/dL High HDL Cholesterol Serum or plasma cholesterol in VLDL measurement (mass/volume)Ordered By: Jayant Joy on 11-17-2022 Cholesterol in VLDL [Mass/Vol] 29 mg/dL 5-40 [facility] Serum or plasma creatinine m easurement (mass/volume)Ordered By: Jayant Joy on 11-17-2022 Creatinine [Mass/Vol] 0.75 mg/dL 0.70-1.30 [facility] Comment on above: The validity of the calculated GFR & GFRAA in patients over 70 years has not been determined. Clinical correlation is essential. Serum or plasma low density lipoprotein (LDL) cholesterol measurement (mass/volume)Ordered By: Jayant Joy on 11-17-2022 Cholesterol in LDL [Mass/Vol] 31 mg/dL 0-130 [facility] Serum or plasma urea nitroge n measurement (mass/volume)Ordered By: Jayant Joy on 11-17-2022 Urea nitrogen [Mass/Vol] 6 mg/dL 7-18 [facility] Thin prep Papanicolaou smear with manual screeningOrdered By: Jayant Joy on 11-17-2022 Thin prep Papanicolaou smear with manual screening 12 U/L 15-37 [facility] Thin prep Papanicolaou smear with manual screening 6 5-15 [facility] Thin prep Papanicolaou smear with manual screening < 5.0 mg/L NO RANGE EST. [facility] Urine creatinine measurement (mass/volume)Ordered By: Jayant Joy on 11-17-2022 Creatinine (U) [Mass/Vol] 47.10 mg/dL NO RANGE EST. [facility] CNOVon 08-29-2022 CNOV Office Visit (UCWSTR) ---- KJ DELCID ([id number]) 1965 M Date Time Provider Department 08/29/22 8:15 AM HANANE CRUZ [facility] [place] During your visit today, we recorded the following information about you: Temperature Pulse Respiration Blood pressure 96.9 degrees 84/minute 16/minute 122/72 Weight 67.1 kg Hanane Cruz PA 08/29/2022 8:20 AM Signed This note was created using [id number]. Subjective Kj Delcid is a 56 year old male. HPI 56-year-old male presents for COVID concern. Patient presents with his caregiver from a alf. Patient has had sore throat, congestion, cough [...] and feve (more content not included)... Normal [facility] Glucose Glucometer (dC) [M ass/Vol]on 08-31-2021 Glucose [Mass/Vol] 95 mg/dL 74-106 [facility] Work Phone: Comment on above: MANAGEMENT OF PATIEN T CARE PER NURSING PROTOCOL Basophil percentageon 2021 Ammonia (P) [Moles/Vol] 33.0 umol/L 11-32 [facility] Work Phone: Laboratory - Chemistry and C hemistry - challengeon 08-27-2021 ALT [Catalytic activity/Vol] 26 U/L 16-61 [facility] Work Phone: No Panel Informationon 08-27 Valproic Acid (Depakene) Level 92 ug/mL 50-100 [facility] Work Phone: Platelets bldon 08-27-2021 Platelets (Bld) [#/Vol] 302 10*3/uL 150-450 [facility] Work Phone: Thin prep Papanicolaou smear with manual screeningon 08-27-2021 Thin prep Papanicolaou smear with manual screening 13 U/L 15-37 [facility] Work Phone: Absolute lymphocyte counton 07-20-2021 Lymphocytes Auto (Unsp spec) [#/Vol] 1.89 10*3/uL 0.83-4.51 [facility] Work Phone: Basophil percentageon 2021 Basophils/100 WBC (Bld) 0.5 % 0-1 [facility] Work Phone: Bilirubin [Mass/Vol] 0.20 mg/dL 0.20-1.00 [facility] Work Phone: Comment on above: For patients on eltr ombopag therapy, use of Dimension [place] TBIL is not recommended. Chloride [Moles/Vol] 101 mmol/L 98-107 [facility] Work Phone: Cholesterol [Mass/Vol] 112 mg/dL <200 [facility] Work Phone: Comment on above: <200 mg/dL Desirable 200-240 mg/dL Borderline >240 mg/dL High Risk Eosinophils/100 WBC (Bld) 9.1 % 0-5 [facility] Work Phone: Glucose [Mass/Vol] 89 mg/dL 74-106 [facility] Work Phone: Neutrophils (Bld) [#/Vol] 1.6 10*3/uL 2.0-7.7 [facility] Work Phone: Neutrophils/100 WBC (Bld) 36.4 % 47-70 [facility] Work Phone: Potassium [Moles/Vol] 4.4 mmol/L 3.5-5.1 [facility] Work Phone: Protein [Mass/Vol] 7.1 g/dL 6.4-8.2 [facility] Work Phone: Sodium [Moles/Vol] 135 mmol/L 136-145 [facility] Work Phone: Triglyceride [Mass/Vol] 71 mg/dL <199 [facility] Work Phone: Comment on above: The drugs N-Acetylcy steine and Metamizole may falsely depress this assay.Serum Triglycerides Reference Interval Normal <150 mg/dL Borderline high 150 - 199 mg/dL High 200 - 499 mg/dL Very High > or = 500 mg/dL WBC (Bld) [#/Vol] 4.3 10*3/uL 4.4-11.0 [facility] Work Phone: Blood erythrocytes count (nu mber/volume)on 07-20-2021 RBC (Bld) [#/Vol] 4.82 10*6/uL 4.6-6.2 [facility] Work Phone: Blood hemoglobin measurement (mass/volume)on 07-20-2021 Hemoglobin (Bld) [Mass/Vol] 13.1 g/dL 13.0-16.5 [facility] Work Phone: Blood lymphocytes/100 leukoc yteson 07-20-2021 Lymphocytes/100 WBC (Bld) 44.0 % 19-41 [facility] Work Phone: Blood monocytes/100 leukocyt eson 07-20-2021 Monocytes/100 WBC (Bld) 9.8 % 0-10 [facility] Work Phone: Blood platelet mean volumeon 07-20-2021 Platelet mean volume (Bld) [Entitic vol] 10.4 fL 6.2-12.0 [facility] Work Phone: Determination of erythrocyte mean corpuscular volume (MCV)on 07-20-2021 MCV (RBC) [Entitic vol] 75.9 fL 80-94 [facility] Work Phone: Hematocrit Auto (Bld) [Volum e fraction]on 07-20-2021 Hematocrit (Bld) [Volume fraction] 36.6 % 40-54 [facility] Work Phone: Laboratory - Chemistry and C hemistry - challengeon 07-20-2021 ALP [Catalytic activity/Vol] 56 U/L 45-117 [facility] Work Phone: ALT [Catalytic activity/Vol] 39 U/L 16-61 [facility] Work Phone: CO2 [Moles/Vol] 28.0 mmol/L 21.0-32.0 [facility] Work Phone: Free T4 [Mass/Vol] 0.89 ng/dL 0.76-1.46 [facility] Work Phone: Globulin (S) [Mass/Vol] 3.5 g/dL 2.2-4.2 [facility] Work Phone: Urea nitrogen/Creatinine [Mass ratio] 11.3 mg/mg 10-20 [facility] Work Phone: Laboratory - Hematology and Cell countson 07-20-2021 Erythrocyte distribution width (RBC) [Entitic vol] 37.4 fL 35.1-43.9 [facility] Work Phone: Erythrocyte distribution width (RBC) [Ratio] 13.7 % 11.6-14.6 [facility] Work Phone: Immature granulocytes/100 WBC (Bld) 0.200 % 0.0-0.9 [facility] Work Phone: [phone] Comment on above: IG% - Immature Granu locytes (promyelocytes, myelocytes and metamyelocytes) > 1% indicates that a LEFT SHIFT is Present. MCH (RBC) [Entitic mass] 27.2 pg 27.0-32.0 [facility] Work Phone: Nucleated RBC/100 WBC (Bld) [Ratio] 0 % 0-5 [facility] Work Phone: MCHC Auto (RBC) [Mass/Vol]on 07-20-2021 MCHC (RBC) [Mass/Vol] 35.8 g/dL 32-36 [facility] Work Phone: No Panel Informationon 07-20 Estimated GFR (MDRD) Amer 130 mL/min >60 [facility] Work Phone: Comment on above: GFR Calc Estimated GFR (MDRD) Non-Af Amer 108 mL/min >60 [facility] Work Phone: Comment on above: Non- GFR Calc Thyroid Stimulating Hormone (TSH) 1.56 uIU/mL 0.358-3.74 [facility] Work Phone: Valproic Acid (Depakene) Level 66 ug/mL 50-100 [facility] Work Phone: Platelets bldon 07-20-2021 Platelets (Bld) [#/Vol] 257 10*3/uL 150-450 [facility] Work Phone: Serum or plasma albumin kathleen urement (mass/volume)on 07-20-2021 Albumin [Mass/Vol] 3.6 g/dL 3.2-5.0 [facility] Work Phone: Serum or plasma albumin/glob ulin mass ratioon 07-20-2021 Albumin/Globulin [Mass ratio] 1.0 {ratio} 0.9-2.4 [facility] Work Phone: Serum or plasma calcium kathleen urement (mass/volume)on 07-20-2021 Calcium [Mass/Vol] 9.3 mg/dL 8.5-10.1 [facility] Work Phone: Serum or plasma cholesterol in HDL measurement (mass/volume)on 07-20-2021 Cholesterol in HDL [Mass/Vol] 44 mg/dL >40 [facility] Work Phone: Comment on above: The drugs N-Acetylcy steine and Metamizole may falsely depress this assay. Reference Range HDL <40 mg/dL Low HDL Cholesterol HDL >or= 60 mg/dL High HDL Cholesterol Serum or plasma cholesterol in VLDL measurement (mass/volume)on 07-20-2021 Cholesterol in VLDL [Mass/Vol] 14 mg/dL 5-40 [facility] Work Phone: Serum or plasma creatinine m easurement (mass/volume)on 07-20-2021 Creatinine [Mass/Vol] 0.79 mg/dL 0.70-1.30 [facility] Work Phone: Comment on above: The validity of the calculated GFR & GFRAA in patients over 70 years has not been determined. Clinical correlation is essential. Serum or plasma low density lipoprotein (LDL) cholesterol measurement (mass/volume)on 07-20-2021 Cholesterol in LDL [Mass/Vol] 54 mg/dL 0-130 [facility] Work Phone: Serum or plasma urea nitroge n measurement (mass/volume)on 07-20-2021 Urea nitrogen [Mass/Vol] 9 mg/dL 7-18 [facility] Work Phone: Thin prep Papanicolaou smear with manual screeningon 07-20-2021 Thin prep Papanicolaou smear with manual screening 29 U/L 15-37 [facility] Work Phone: Thin prep Papanicolaou smear with manual screening 6 5-15 [facility] Work Phone: Whole blood hemoglobin A1c/t otal hemoglobin ratio (mass fraction)on 07-20-2021 HbA1c (Bld) [Mass fraction] 5.5 % 3.8-5.6 [facility] Work Phone: Comment on above: Normal < 5.7 % Predi abetic 5.7 - 6.4 % Diabetic >or= 6.5 % Please note range changes. Vital Signs Date Time Vital Sign Value Performing Clinician Facility 03-27-2024 08:26-0500 Body height 160.[address] Jayant Joy MD Work Phone: [facility] 03-27-2024 08:26-0500 Body mass index (BMI) [Ratio] 26.5 kg/m2 Dr. Jayant Joy MD Work Phone: [facility] 03-27-2024 08:26-0500 Body temperature 97.8 [degF] Dr. Jayant Joy MD Work Phone: [facility] 03-27-2024 08:26-0500 Body weight 68.[address] Jayant Joy MD Work Phone: [facility] 03-27-2024 08:26-0500 Diastolic blood pressure 84 mm[Hg] Dr. Jayant Joy MD Work Phone: [facility] 03-27-2024 08:26-0500 Heart rate 85 /min Dr. Jayant Joy MD Work Phone: [facility] 03-27-2024 08:26-0500 Respiratory rate 16 /min Dr. Jayant Joy MD Work Phone: [facility] 03-27-2024 08:26-0500 SaO2% (BldA) [Mass fraction] 99 % Dr. Jayant Joy MD Work Phone: [facility] 03-27-2024 08:26-0500 Systolic blood pressure 142 mm[Hg] Dr. Jayant Joy MD Work Phone: [facility] 08-29-2022 08:02-0400 Body temperature 96.91 [degF] Krislyn Aberegg PA Work Phone: [facility] 08-29-2022 08:02-0400 Body weight 67.13 kg Krislyn Aberegg PA Work Phone: [facility] 08-29-2022 08:02-0400 Diastolic blood pressure 72 mm[Hg] Krislyn Aberegg PA Work Phone: [facility] 08-29-2022 08:02-0400 Heart rate 84 /min Krislyn Aberegg PA Work Phone: [facility] 08-29-2022 08:02-0400 Respiratory rate 16 /min Krislyn Aberegg PA Work Phone: [facility] 08-29-2022 08:02-0400 SaO2% (BldA) [Mass fraction] 98 % Krislyn Aberegg PA Work Phone: [facility] 08-29-2022 08:02-0400 Systolic blood pressure 122 mm[Hg] Hanane Cruz TAN Work Phone: [facility] 08-31-2021 10:23-0400 Body temperature 97 [degF] [facility] Work Phone: [facility] Work Phone: 08-31-2021 10:23-0400 Diastolic blood pressure 90 mm[Hg] [facility] Work Phone: [facility] Work Phone: 08-31-2021 10:23-0400 Heart rate 80 /min [facility] Work Phone: [facility] Work Phone: 08-31-2021 10:23-0400 Respiratory rate 18 /min [facility] Work Phone: [facility] Work Phone: 08-31-2021 10:23-0400 SaO2% (BldA) [Mass fraction] 100 % [facility] Work Phone: [facility] Work Phone: 08-31-2021 10:23-0400 Systolic blood pressure 148 mm[Hg] [facility] Work Phone: [facility] Work Phone: 08-31-2021 10:05-0400 Inhaled oxygen flow rate 2 L/min [facility] Work Phone: [facility] Work Phone: 08-31-2021 08:41-0400 Body height 160.02 cm [facility] Work Phone: [facility] Work Phone: 08-31-2021 08:41-0400 Body mass index (BMI) [Ratio] 25.4 kg/m2 [facility] Work Phone: [facility] Work Phone: 08-31-2021 08:41-0400 Body weight 65.3 kg [facility] Work Phone: [facility] Work Phone: 07-27-2021 13:54-0400 Body mass index (BMI) [Ratio] 26.1 kg/m2 [facility] Work Phone: [facility] Work Phone: 07-27-2021 13:54-0400 Body temperature 98.2 [degF] [facility] Work Phone: [facility] Work Phone: 07-27-2021 13:54-0400 Body weight 66.[facility] [facility] Work Phone: [facility] Work Phone: 07-27-2021 13:54-0400 Diastolic blood pressure 79 mm[Hg] [facility] Work Phone: [facility] Work Phone: 07-27-2021 13:54-0400 Heart rate 99 /min [facility] Work Phone: [facility] Work Phone: 07-27-2021 13:54-0400 Respiratory rate 18 /min [facility] Work Phone: [facility] Work Phone: 07-27-2021 13:54-0400 SaO2% (BldA) [Mass fraction] 97 % [facility] Work Phone: [facility] Work Phone: 07-27-2021 13:54-0400 Systolic blood pressure 134 mm[Hg] [facility] Work Phone: [facility] Work Phone: Encounters Encounter Date Encounter Type Care Provider Facility Start: 11-06-2024 End: 11-06-[address] Jayant Joy MD Work Phone: [facility] Start: 11-06-2024 End: 11-06-[address] Jessie Vasquez MD -[facility] [place] Work Phone: Start: 11-06-2024 End: 11-06-2024 ambulatory Jessie Vasquez Facility:[facility] Start: 06-13-2024 End: 06-13-[address] Jayant Joy MD Work Phone: [facility] Work Phone: Start: 06-13-2024 End: 06-13-[address] Jayant Joy MD -Laboratory, [place] Work Phone: Start: 06-13-2024 End: 06-13-2024 ambulatory Jayant Joy Facility:[facility] Start: 03-27-2024 End: 03-27-2024 ambulatory Jayant Joy Facility:[facility] Start: 03-27-2024 End: 03-27-[address] Pete Rahman MD -[facility] Work Phone: Start: 01-24-2024 End: 01-24-2024 ambulatory Jayant Joy Facility:[facility] Start: 06-02-2023 End: 06-02-2023 ambulatory [facility] Work Phone: Start: 06-02-2023 End: 06-02-2023 Patient encounter procedure [facility] Start: 12-23-2022 End: 12-23-2022 ambulatory [facility] Work Phone: Start: 12-23-2022 End: 12-23-2022 Patient encounter procedure [facility] Work Phone: Start: 11-17-2022 End: 11-17-2022 ambulatory [facility] Work Phone: Start: 11-17-2022 End: 11-17-2022 [facility] Start: 08-29-2022 End: 08-29-2022 ambulatory JAYANT JOY Facility:[facility] Start: 08-29-2022 End: 08-29-2022 Patient encounter procedure Hanane SIMPSON Work Phone: [facility] Comment on above: COVID-19 (Primary Dx ) Start: 08-31-2021 Non-patient / Non-visit [facility] Work Phone: [facility] Start: 08-31-2021 End: 08-31-2021 Admission to same day surgery center [facility] Work Phone: [facility] Start: 08-27-2021 Patient encounter procedure [facility] Work Phone: [facility] Start: 07-27-2021 End: 07-27-2021 Patient encounter procedure [facility] Work Phone: [facility] Start: 07-20-2021 End: 07-20-2021 Patient encounter procedure [facility] Procedures Date Procedure Procedure Detail Performing Clinician Start: 06-13-2024 Urine microalbumin/creatinine ratio measurement Dr. Jayant Joy MD Work Phone: Start: 08-31-2021 Colonoscopy [facility] Work Phone: Plan of Treatment Date Care Activity Detail Author Start: 10-07-2022 Influenza vaccination INFLUENZA (#1) [facility] Start: 02-06-2022 DEPRESSION ASSESSMENT DEPRESSION ASSESSMENT [facility] Start: 08-31-2021 Patient discharge [facility] Work Phone: Start: 2020 PROSTATE CANCER SCREENING DISCUSSION PROSTATE CANCER SCREENING DISCUSSION [facility] Start: 12-07-2015 SHINGRIX VACCINE (1 of 2) SHINGRIX VACCINE (1 of 2) [facility] Start: 10-08-2014 LIPID SCREEN LIPID SCREEN [facility] Start: 10-08-2012 DIABETES SCREEN DIABETES SCREEN [facility] Start: 2010 COLOGUARD (FIT-DNA) COLOGUARD (FIT-DNA) [facility] Start: 2010 Colonoscopy COLONOSCOPY [facility] Start: 2010 COLORECTAL CANCER SCREENING COLORECTAL CANCER SCREENING [facility] Start: [address] COLONOGRAPHY [facility] Start: 2010 FECAL OCCULT BLOOD FECAL OCCULT BLOOD [facility] Start: 2010 SIGMOIDOSCOPY SIGMOIDOSCOPY [facility] Start: 02-07-1990 Urine microalbumin profile DTAP,TDAP,TD (1 - Tdap) [facility] Start: 12-07-1983 ANNUAL PCP TEAM CHRONIC DISEASE VISIT ANNUAL PCP TEAM CHRONIC DISEASE VISIT [facility] Start: 12-07-1983 HEPATITIS C SCREENING HEPATITIS C SCREENING [facility] Start: 12-07-1983 HIV SCREENING HIV SCREENING [facility] Start: 1965 HEPATITIS B (1 of 3 - 3-dose series) HEPATITIS B (1 of 3 - 3-dose series) [facility] Patient referral [facility] Work Phone: Immunizations Immunization Date Immunization Notes Care Provider Sergio lynch 11-12-2018 influenza, injectabl e, quadrivalent, preservative free [facility] 11-12-2018 influenza, seasonal, injectable [facility] Work Phone: 11-25-2008 influenza virus vacc ine, unspecified formulation Hanane Cruz PA Work Phone: [facility] 12-24-2007 influenza virus vacc ine, unspecified formulation Hanane Cruz PA Work Phone: [facility] Work Phone: 12-18-2006 influenza virus vacc ine, unspecified formulation Hanane SIMPSON Work Phone: [facility] Work Phone: 04-05-2005 pneumococcal polysaccharide vaccine, 23 valent Hanane Cruz PA Work Phone: [facility] Work Phone: 12-02-2004 influenza virus vacc ine, unspecified formulation Hanane SIMPSON Work Phone: [facility] Work Phone: 02-06-1990 tetanus and diphther ia toxoids, adsorbed, preservative free, for adult use (2 Lf of tetanus toxoid and 2 Lf of diphtheria toxoid) Hanane SIMPSON Work Phone: [facility] Work Phone: Payers Date Payer Category Payer Self-pay [id number] 2024 Unknown [id number] [address] [facility] MEDICARE MYC ARE [facility] MEDICARE [id number] 2018-Present [phone] [address] [place] [address] Medicare [id number] [facility] MEDICAID MYC ARE [facility] MEDICAID [id number] 2016-Present [phone] [address] [place] [address] Medicaid [id number] 2016 Unknown [id number] Unknown [id number] Unknown [id number] Unknown [id number] Social History Date Type Detail Facility Start: 09-21-2020 End: 08-26-2021 Tobacco smoking status NHIS Unknown if ever smoked [facility] Start: 08-13-2019 None [facility] Start: 08-13-2019 - [facility] Start: 08-13-2019 Non-smoker [facility] Start: 1965 Sex Assigned At Male [facility] Start: 08-29-2022 End: 03-27-2024 Tobacco smoking status NHIS Ex-smoker [facility] Work Phone: End: 01-21-1994 History of tobacco use Current smoker [facility] Work Phone: End: 01-21-1994 History of tobacco use Cigarette Smoker [facility] Work Phone: Start: 08-29-2022 Tobacco use and exposure Smokeless tobacco non-user [facility] Work Phone: Start: 08-29-2022 Alcohol intake Current non-dr director dermatology of alcohol (finding) [facility] Start: 08-29-2022 History of Social function [facility] Start: 08-29-2022 Tobacco use panel [facility] Start: 1965 Sex Assigned At Not on file [facility] Goals Date Patient Goal Desired Activity /State Mental Status Date Assessment Result Facility 08-31-2021 Cognitive function Level Of Consciousness Sedated [facility] Work Phone: 08-31-2021 Cognitive function Voice/Name [facility] Work Phone: Evaluation note 03-27-2024 Note Date & Type Note Facility 03-27-2024 Evaluation note Diagnosis Onset Date Resolution Cerebral palsy chronic March 092024 8:19am 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 Author Type: Physician Development Team Lead Type: Progress Notes Filed: 08/29/2022 8:20 AM Note Text: This note was created using [id number]. Subjective Kj Delcid is a 56 year old male. HPI 56-year-old male presents for COVID concern. Patient presents with his caregiver from a alf. Patient has had sore throat, congestion, cough [...] lb) SpO2 98% (more content not included)... [facility] History of Present illness Narrative 08-29-2022 Hanane Cruz PA - 08/29/2022 8:15 AM EDT Note Date & Type Note Facility 08-29-2022 History of Presen t illness Narrative This note was created using [employer]. Subjective Kj Delcid is a 56 year old male. HPI 56-year-old male presents for COVID concern. Patient presents with his caregiver from a alf. Patient has had sore throat, congestion, cough [...] evaluation. TAN Dawkins documented in this encounter [facility] Evaluation note Note Date & Type Note Facility Evaluation note No assessment information availa ble [facility] Work Phone: Evaluation note Note Date & Type Note Facility Evaluation note Diagnosis Onset Date Constipation acute Esophageal dysphagia acute Personal history of colonic polyps acute Zenker diverticulum acute [facility] Work Phone: Evaluation note Note Date & Type Note Facility Evaluation note Diagnosis COVID-19- Primary documented in this encounter [facility] Reason for referral (narrative) Note Date & Type Note Facility Reason for referral (narrative) No reason for referral information available [facility] Work Phone: Family History No Family History Records Found Relationship Condition Age at Onset Recorded Date/T luis grandmother Hypertension Unknown Diabetes mellitus Unknown brother Seizure Unknown mother Hypertension Unknown father Hypertension Unknown Advance Directives No Advanced Directives Records Found Advance Directive Response Recorded Date/ Time Living Will No September 21 1 2:53pm Power of [employer] No September 21 021 2:53pm Advance Directive Response Recorded Date/ Time Living Will No August 26, 2021 2:40pm Power of [employer] No August 26 2 2:40pm Advance Directive Response Recorded Date/ Time Living Will No August 26, 2021 1:40pm Power of [employer] No August 26 2 1:40pm Chief Complaint [...] section and content) DATE CREATED AUTHOR 08/29/2022 [facility] DATE CREATED AUTHOR AUTHOR'S ORGANIZ ATION 11/15/2024 [facility] Source Comments (unrecognize d section and content) In the event this informatio n is protected by the Federal Confidentiality of Alcohol and Drug Abuse Patient Records regulations: The Federal rules restrict any use of the information to criminally investigate or prosecute any alcohol or drug abuse patient.[facility] Reason for Visit (unrecogniz ed section and content) Reason Comments Cough headache and sore th roat x 3 days, + covid test yesterday Care Teams (unrecognized sec tion and content) 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 Jayant Joy MD Family Provider Active Dr. Jayant Joy [...] June 13, 2024 End: June 13, 2024 Team Status: Active Member Role/Relationship Status Dates Dr. Jayant Joy MD Primary care physician Active Team Status: Inactive Member Role/Relationship Status Dates Dr. Jayant Joy MD Primary care physician Active Start: November 06, 2024 End: November 06, 2024 Dr. Jessie Vasquez MD Attending physician Active Start: November 06, 2024 End: November 06, 2024 Dr. Jessie Vasquez MD Referring Provider Active Start: November 06, 2024 End: November 06, 2024 FOR RECORDS PERTAINING TO PATIENTS WHO [...] BE BASED ON THE PRIMARY CLINICAL RECORDS. [employer] provides no warranty or guarantee of the accuracy or completeness of information in this document.
[2025-02-03 09:04] LABS: Anion Gap 9 (7-18); BUN 7 mg/dL (4-19); BUN/Creat Ratio 8.8 RATIO (10-20); Calcium,Total 9.3 mg/dL (7.6-11.0); Carbon Dioxide 26.0 mmol/L (20.0-29.0); Chloride 98 mmol/L (96-106); Cholesterol 130 mg/dL (<=200); Glucose 94 mg/dL (70-99); Low Density Lipoprotein Calc. 65 mg/dL; Potassium 4.5 mmol/L (3.5-5.1); Triglycerides 102 mg/dL; Very Low Density Lipoprotein 20 mg/dL (5-40); cholesterol:hdl ratio screen 2.84
== END | disposition home or self-care (01) ==
PROVIDERS: PCP Family Medicine; Visit Provider Family Medicine
DX: E11.9 Type 2 diabetes mellitus without complications (principal); Z79.4 Long term (current) use of insulin; E87.1 Hypo-osmolality and hyponatremia
CPT/HCPCS: 36415; 80048; 80061; 83036